=== PATIENT | female | born 1980 | race Caucasian/White ===

== ENCOUNTER 2016-12-12 14:55 | Emergency (ER) | payer OTHER ==
[2016-12-12] MEDS ORDERED: HYDROcodone/APAP 5-325MG 1 EACH TAB PO STA (16:09)
[2016-12-12] MEDS ORDERED: ORPHENADRINE 30 MG/ML 2 ML VIAL IM STA (16:09)
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
[2016-12-12 17:17] VITALS: BP 129/67; PULSE 80; RESP 16; TEMP 98.4
== END 2016-12-12 17:20 | disposition home or self-care (01) ==
LOC: EC 14:55
DX: S16.1XXA Strain of muscle, fascia and tendon at neck level, initial encounter (principal); M25.511 Pain in right shoulder; R51 Headache; F17.200 Nicotine dependence, unspecified, uncomplicated; V48.5XXA Car driver injured in noncollision transport accident in traffic accident, initial encounter; Y92.410 Unspecified street and highway as the place of occurrence of the external cause
CPT/HCPCS: 72050; 99284; 96372; J2360

== ENCOUNTER 2017-01-12 14:12 | Emergency (ER) | payer OTHER ==
[2017-01-12 14:27] VITALS: RESP 20
[2017-01-12] MEDS ORDERED: IPRATROPIUM-ALBUTEROL 3 ML NEB INHALATION STA (14:54)
--- NOTE | 2017-01-12 14:57 | ED ---
URI HPI - General Chief Complaint: Upper Respiratory Infection Stated Complaint: congestion MARK Time Seen by Provider: 01/12/17 14:52 Source: patient, RN notes reviewed Mode of arrival: ambulatory Limitations: no limitations - History of Present Illness Initial Comments: 36-year-old female presents emergency department tingling cough and congestion. Patient states she's been sick for last 5 days been on antibiotics 4 days. Patient states she saw Dr. Ledezma placed some oxacillin and prednisone. Patient states she was diagnosed with a blister infection. She states that symptoms seemed to be getting worse that she's had increased cough and sinus congestion. He states her cough is dry worse at nighttime. Patient states she had asthma when she was jumping over no current use of inhalers or nebulizers. Patient denies any pleuritic chest pain, palpitations. Patient denies fever, chills, night sweats. Patient is not taking any [id number] cough and cold medications. - Related Data Home Medications Medication Instructions Recorded Confirmed Amoxicillin 500 mg PO TID 01/12/17 01/12/17 methylPREDNISolone Dose Pack See Taper PO DAILY 01/12/17 01/12/17 [Medrol Dose Pack] Previous Rx's Medication Instructions Recorded Albuterol Sulfate [Proair Hfa] 1 - 2 puff INHALATION Q4HR PRN #1 01/12/17 inhaler Allergies Allergy/AdvReac Type Severity Reaction Status Date / Time No Known Allergies Allergy Verified 01/12/17 15:21 Review of Systems ROS Statement: Those systems with pertinent positive or pertinent negative responses have been documented in the HPI. ROS Other: All systems not noted in ROS Statement are negative. Past Medical History Past Medical History: Asthma Additional Past Medical History / Comment(s): MIGRAINES, kidney stones, ovarian cysts History of Any Multi-Drug Resistant Organisms: None Reported Past Surgical History: Section, Tubal Ligation Additional Past Surgical History / Comment(s): EAR TUMOR Past Psychological History: Anxiety, Depression Smoking Status: Current every day smoker Past Alcohol Use History: Occasional Past Drug Use History: None Reported General Exam Limitations: no limitations General appearance: alert, in no apparent distress Head exam: Present: atraumatic, normocephalic, normal inspection Eye exam: Present: normal appearance, PERRL, EOMI. Absent: scleral icterus, conjunctival injection, periorbital swelling ENT exam: Present: mucous membranes moist, TM's normal bilaterally, normal external ear exam, other (Sinus tenderness maxillary). Absent: normal oropharynx (Postnasal drainage) Neck exam: Present: normal inspection, full ROM. Absent: tenderness, meningismus, lymphadenopathy Respiratory exam: Present: wheezes. Absent: normal lung sounds bilaterally, respiratory distress, rales, rhonchi, stridor Cardiovascular Exam: Present: regular rate, normal rhythm, normal heart sounds. Absent: systolic murmur, diastolic murmur, rubs, gallop, clicks Skin exam: Present: warm, dry, intact, normal color. Absent: rash Course Vital Signs 01/12/17 01/12/17 01/12/17 14:24 15:15 15:20 Temperature 98.4 F Pulse Rate 102 H 100 100 Respiratory 20 Rate Blood Pressure 117/70 O2 Sat by Pulse 95 Oximetry Medical Decision Making - Medical Decision Making 36-year-old female presented emergency department for cough congestion. Patient appears to have a viral upper restrained infection. Patient does have some wheezing though she has a history of asthma. Patient was given a shot of steroids, inhaler to go home with. Return parameters were discussed. Disposition Clinical Impression: Upper respiratory infection, Bronchospasm Disposition: HOME SELF-CARE Condition: Stable Instructions: Upper Respiratory Infection (ED) Additional Instructions: Please return to the Emergency Department if symptoms worsen or any other concerns. Prescriptions: Albuterol Sulfate [Proair Hfa] 1 - 2 puff INHALATION Q4HR PRN #1 inhaler PRN Reason: difficulty in breathing Time of Disposition: 15:39
--- NOTE | 2017-01-12 15:11 | XR ---
EXAMINATION TYPE: XR chest 2V DATE OF EXAM: 01/12/2017 3:02 PM COMPARISON: 01/04/2010 HISTORY: Cough TECHNIQUE: Frontal and lateral views of the chest are obtained. FINDINGS: Heart and mediastinum are normal. Lungs are clear. Diaphragm is normal. Bony thorax is int act. IMPRESSION: Normal chest. No change.
[2017-01-12] MEDS ORDERED: methylPREDNISolone SOD SUCCI 125 MG/2 ML VIAL IM ONE (15:40)
[2017-01-12 15:56] VITALS: BP 120/70; PULSE 91; TEMP 98
== END 2017-01-12 15:56 | disposition home or self-care (01) ==
LOC: EC 14:12
DX: J98.01 Acute bronchospasm (principal); J06.9 Acute upper respiratory infection, unspecified; F17.200 Nicotine dependence, unspecified, uncomplicated; Z79.52 Long term (current) use of systemic steroids
CPT/HCPCS: 99283; 96372; 94640; 71020; J2930

== ENCOUNTER 2017-04-22 06:41 | Observation (INO) | payer OTHER ==
[2017-04-22 07:07] LABS: Basophils # (A) 0.1 k/uL (0-0.2); Basophils % (A) 0 %; CH 31.3; CHCM 33.9; Eosinophils # (A) 0.2 k/uL (0-0.7); Eosinophils % (A) 1 %; HCT 42.9 % (34.0-46.0); HDW 2.34; HGB 14.6 gm/dL (11.4-16.0); Luc # (Auto) 0.11; Luc % (Auto) 1; Lymphocytes # (A) 1.4 k/uL (1.0-4.8); Lymphocytes % (A) 7 %; MCH 31.6 pg (25.0-35.0); MCHC 34.1 g/dL (31.0-37.0); MCV 92.7 fL (80.0-100.0); Mean Platelet Volume 7.6; Monocytes # (A) 0.8 k/uL (0-1.0); Monocytes % (A) 4 %; Neutrophils # (A) 16.5 k/uL (1.3-7.7); Neutrophils % (A) 87 %; RBC 4.63 m/uL (3.80-5.40); RDW 13.9 % (11.5-15.5); WBC (Perox) 17.55
[2017-04-22] MEDS ORDERED: KETOROLAC 30 MG/ML 1 ML VIAL IVP STA ×2 (07:11→08:30)
--- NOTE | 2017-04-22 07:14 | ED ---
Abdominal Pain HPI - General Chief Complaint: Abdominal Pain Stated Complaint: Abd pain Time Seen by Provider: 04/22/17 07:00 Source: patient, EMS, RN notes reviewed Mode of arrival: EMS Limitations: no limitations - History of Present Illness Initial Comments: This is a 36-year-old female who presents with the onset of lower abdominal pain about 2-3 hours prior to admission. She states is very severe and sharp 9/ 10 in severity. Some nausea no vomiting no dysuria no hematuria she has had a history of ovarian cysts it does not feel like that she states is worse than labor pains. She has had a . No history of kidney stones. She has any fevers chills or sweats. No diarrhea no constipation. MD Complaint: abdominal pain - Related Data Home Medications Medication Instructions Recorded Confirmed Albuterol Inhaler [Ventolin Hfa 1 - 2 puff INHALATION RT-Q6H PRN 04/22/17 Inhaler] Hydrocodone/Acetaminophen [[place] 1 tab PO DAILY PRN 04/22/17 04/22/17 5-325] Ibuprofen [Motrin] 400 mg PO DAILY PRN 04/22/17 04/22/17 Allergies Allergy/AdvReac Type Severity Reaction Status Date / Time No Known Allergies Allergy Verified 04/22/17 08:28 Review of Systems ROS Statement: Those systems with pertinent positive or pertinent negative responses have been documented in the HPI. ROS Other: All systems not noted in ROS Statement are negative. Past Medical History Past Medical History: Asthma Additional Past Medical History / Comment(s): MIGRAINES, kidney stones, ovarian cysts History of Any Multi-Drug Resistant Organisms: None Reported Past Surgical History: Section, Tubal Ligation Additional Past Surgical History / Comment(s): EAR TUMOR Smoking Status: Current every day smoker Past Alcohol Use History: Occasional Past Drug Use History: None Reported General Exam - General Exam Comments Initial Comments: This is a well-developed well-nourished awake alert oriented 3 female Limitations: no limitations General appearance: alert, anxious, in distress Head exam: Present: atraumatic, normocephalic, normal inspection Eye exam: Present: normal appearance, PERRL, EOMI. Absent: scleral icterus, conjunctival injection, periorbital swelling ENT exam: Present: normal exam, mucous membranes moist Neck exam: Present: normal inspection. Absent: tenderness, meningismus, lymphadenopathy Respiratory exam: Present: normal lung sounds bilaterally. Absent: respiratory distress, wheezes, rales, rhonchi, stridor Cardiovascular Exam: Present: regular rate, normal rhythm, normal heart sounds. Absent: systolic murmur, diastolic murmur, rubs, gallop, clicks GI/Abdominal exam: Present: soft, tenderness (Tenderness over the suprapubic region with no guarding rebound masses or bruits no definite McBurney point tenderness.), normal bowel sounds. Absent: distended, guarding, rebound, rigid Extremities exam: Present: normal inspection, full ROM, normal capillary refill. Absent: tenderness, pedal edema, joint swelling, calf tenderness Back exam: Present: normal inspection Neurological exam: Present: alert, oriented X3, CN II-XII intact Psychiatric exam: Present: normal affect, normal mood Skin exam: Present: warm, dry, intact, normal color. Absent: rash Course Vital Signs 04/22/17 04/22/17 06:43 08:50 Temperature 98.6 F Pulse Rate 79 72 Respiratory 20 16 Rate Blood Pressure 127/91 112/72 O2 Sat by Pulse 97 96 Oximetry - Reevaluation(s) Reevaluation #1: 04/22/17 09:31 I did discuss case with Dr. Barger. Medical Decision Making - Medical Decision Making I did discuss findings with the patient she does demonstrate evidence of early appendicitis. On-call surgery will be consulted patient will be admitted for treatment. - Lab Data Result diagrams: 04/22/17 06:53 04/22/17 06:53 Lab Results 04/22/17 04/22/17 04/22/17 Range/Units 06:53 06:53 07:51 WBC 19.0 H (3.8-10.6) k/uL RBC 4.63 (3.80-5.40) m/uL Hgb 14.6 (11.4-16.0) gm/dL Hct 42.9 (34.0-46.0) % MCV 92.7 (80.0-100.0) fL MCH 31.6 (25.0-35.0) pg MCHC 34.1 (31.0-37.0) g/dL RDW 13.9 (11.5-15.5) % Plt Count 243 (150-450) k/uL Neutrophils % 87 % Lymphocytes % 7 % Monocytes % 4 % Eosinophils % 1 % Basophils % 0 % Neutrophils # 16.5 H (1.3-7.7) k/uL Lymphocytes # 1.4 (1.0-4.8) k/uL Monocytes # 0.8 (0-1.0) k/uL Eosinophils # 0.2 (0-0.7) k/uL Basophils # 0.1 (0-0.2) k/uL Sodium 144 (137-145) mmol/L Potassium 4.0 (3.5-5.1) mmol/L Chloride 114 H (98-107) mmol/L Carbon Dioxide 18 L (22-30) mmol/L Anion Gap 12 mmol/L BUN 8 (7-17) mg/dL Creatinine 0.55 (0.52-1.04) mg/dL Est GFR (MDRD) Af Amer >60 (>60 ml/min/1.73 sqM) Est GFR (MDRD) Non-Af >60 (>60 ml/min/1.73 sqM) Glucose 91 (74-99) mg/dL Calcium 8.3 L (8.4-10.2) mg/dL Total Bilirubin 0.3 (0.2-1.3) mg/dL AST 25 (14-36) U/L ALT 33 (9-52) U/L Alkaline Phosphatase 82 (38-126) U/L Total Protein 6.6 (6.3-8.2) g/dL Albumin 3.8 (3.5-5.0) g/dL Amylase <30 L (30-110) U/L Lipase 65 (23-300) U/L Urine Color Yellow Urine Appearance Clear (Clear) Urine pH 5.0 (5.0-8.0) Ur Specific [place] 1.010 (1.001-1.035) Urine Protein Negative (Negative) Urine Glucose (UA) Negative (Negative) Urine Ketones Negative (Negative) Urine Blood Trace H (Negative) Urine Nitrite Negative (Negative) Urine Bilirubin Negative (Negative) Urine Urobilinogen <2.0 (<2.0) mg/dL Ur Leukocyte Esterase Moderate H (Negative) Urine RBC 5 (0-5) /hpf Urine WBC 3 (0-5) /hpf Ur Squamous Epith Cells 2 (0-4) /hpf Urine Mucus Rare H (None) /hpf Urine HCG, Qual (Not Detectd) 04/22/17 Range/Units 07:51 WBC (3.8-10.6) k/uL RBC (3.80-5.40) m/uL Hgb (11.4-16.0) gm/dL Hct (34.0-46.0) % MCV (80.0-100.0) fL MCH (25.0-35.0) pg MCHC (31.0-37.0) g/dL RDW (11.5-15.5) % Plt Count (150-450) k/uL Neutrophils % % Lymphocytes % % Monocytes % % Eosinophils % % Basophils % % Neutrophils # (1.3-7.7) k/uL Lymphocytes # (1.0-4.8) k/uL Monocytes # (0-1.0) k/uL Eosinophils # (0-0.7) k/uL Basophils # (0-0.2) k/uL Sodium (137-145) mmol/L Potassium (3.5-5.1) mmol/L Chloride (98-107) mmol/L Carbon Dioxide (22-30) mmol/L Anion Gap mmol/L BUN (7-17) mg/dL Creatinine (0.52-1.04) mg/dL Est GFR (MDRD) Af Amer (>60 ml/min/1.73 sqM) Est GFR (MDRD) Non-Af (>60 ml/min/1.73 sqM) Glucose (74-99) mg/dL Calcium (8.4-10.2) mg/dL Total Bilirubin (0.2-1.3) mg/dL AST (14-36) U/L ALT (9-52) U/L Alkaline Phosphatase (38-126) U/L Total Protein (6.3-8.2) g/dL Albumin (3.5-5.0) g/dL Amylase (30-110) U/L Lipase (23-300) U/L Urine Color Urine Appearance (Clear) Urine pH (5.0-8.0) Ur Specific [place] (1.001-1.035) Urine Protein (Negative) Urine Glucose (UA) (Negative) Urine Ketones (Negative) Urine Blood (Negative) Urine Nitrite (Negative) Urine Bilirubin (Negative) Urine Urobilinogen (<2.0) mg/dL Ur Leukocyte Esterase (Negative) Urine RBC (0-5) /hpf Urine WBC (0-5) /hpf Ur Squamous Epith Cells (0-4) /hpf Urine Mucus (None) /hpf Urine HCG, Qual Not Detected (Not Detectd) - EKG Data -: EKG Interpreted by Me EKG shows normal: sinus rhythm, axis, intervals, QRS complexes, ST-T waves (EKG was performed shows normal sinus rhythm at 74 IL interval 136 QRS 74 QT since QTC of 394/437 st-t wave changes.) Rate: normal - Radiology Data Radiology results: report reviewed (I did review the imaging and reports x-rays nonspecific CAT scan that she'll evidence of early appendicitis.), image reviewed Disposition Clinical Impression: Acute appendicitis, Acute abdomen Disposition: ADMITTED IP TO THIS HOSP Condition: Stable Referrals: None,Stated [Primary Care Provider] - 1-2 days
[2017-04-22 07:21] LABS: ALT 33 U/L (9-52); AST 25 U/L (14-36); Alkaline Phosphatase 82 U/L (38-126); Amylase <30 U/L (30-110); Anion Gap 12 mmol/L; Blood Urea Nitrogen 8 mg/dL (7-17); Calcium 8.3 mg/dL (8.4-10.2); Carbon Dioxide 18 mmol/L (22-30); Chloride 114 mmol/L (98-107); Glucose 91 mg/dL (74-99); Non-African American GFR(MDRD) >60 (>60 ml/min/1.73 sqM); Sodium 144 mmol/L (137-145); Total Bilirubin 0.3 mg/dL (0.2-1.3); Total Protein 6.6 g/dL (6.3-8.2)
[2017-04-22 08:05] LABS: Appearance,Urine Clear (Clear); Bilirubin,Urine Negative (Negative); Glucose,Urine (UA) Negative (Negative); Ketones,Urine Negative (Negative); Leukocyte Esterase,Urine Moderate (Negative); Mucus,Urine Rare /hpf; Nitrite,Urine Negative (Negative); Particle Count 5914; Protein,Urine Negative (Negative); RBC,Urine 5 /hpf (0-5); Squamous Epithelial Cell,Urine 2 /hpf (0-4); UA Billing (MACRO vs. MICRO) MICRO; Urobilinogen,Urine <2.0 mg/dL (<2.0); WBC,Urine 3 /hpf (0-5)
--- NOTE | 2017-04-22 08:05 | XR ---
EXAMINATION TYPE: XR KUB DATE OF EXAM: 04/22/2017 CLINICAL DATA: 36 year-old female with abdominal pain, [facility] COMPARISON: 12/12/2015 FINDINGS: Lung bases are clear. No evidence for free intraperitoneal air. No dilated small bowel. A couple nonspecific air-fluid levels seen in the right mid abdomen. Scattere d colonic air is present without significant stool burden. Bilateral tubal ligation clips. No suspicious calcifications identified. IMPRESSION: 1. No evidence of bowel obstruction or free intraperitoneal air. 2. A couple tiny air-fluid levels in the right mid abdomen are nonspecific.
--- NOTE | 2017-04-22 09:16 | CT ---
EXAMINATION TYPE: CT abdomen pelvis wo con DATE OF EXAM: 04/22/2017 COMPARISON: NONE HISTORY: Abdominal pain CT DLP: 710.5 mGycm Examination of the solid and hollow viscera is limited given the lack of contrast. FINDINGS: LUNG BASES: No evidence for nodule. No evidence for infiltrate. LIVER/GB: The gallbladder is unremarkable. No space-occupying hepatic lesion. PANCREAS: No pancreatic mass identified. No inflammatory process seen. SPLEEN: No evidence for splenomegaly. No intrasplenic lesions seen. ADRENALS: No adrenal nodules identified. No evidence for thickening. KIDNEYS: No evidence for renal mass. No nephrolithiasis. No hydronephrosis. BOWEL: Mild dilatation of the appendix measuring 8.4 mm with minimal wall thickening and periappendic eal stranding. The findings may reflect early mild acute appendicitis. Correlate clinically. No evide nce of bowel obstruction. No inflammatory process. Lymph nodes: No evidence for adenopathy greater than 1 cm. Abdominal aorta: Atheromatous changes seen. No evidence for aneurysm. Genital organs: No significant abnormality. Tubal ligation clips Other: No significant abnormality. IMPRESSION: 1. Correlate for early mild acute appendicitis.
[2017-04-22] MEDS ORDERED: NALOXONE 0.4 MG/ML 1 ML VIAL IV PRN (09:33)
[2017-04-22] MEDS ORDERED: ONDANSETRON 4 MG/2 ML VIAL IVP PRN (09:33)
[2017-04-22] MEDS ORDERED: PIPERACILLIN-TAZOBACTAM 3.375 GM in DEXTROSE/WATER 1 50ML.BAG IVPB STA (09:34)
[2017-04-22] MEDS: SODIUM CHLORIDE 0.9% 1,000 ML IV SCH ×2 (09:44→17:18)
[2017-04-22] MEDS: HYDROmorphone 1 MG/ML 1 ML SYRINGE IV PRN ×4 (09:45→23:01)
[2017-04-22] MEDS ORDERED: IV FLUID CONTINUATION 900 ML IV ONE (12:16)
[2017-04-22] MEDS ORDERED: ONDANSETRON 4 MG/2 ML VIAL IVP ONE (12:17)
[2017-04-22] MEDS ORDERED: DEXAMETHASONE SOD PHOS (MDV) 100 MG/10 ML VIAL IV ONE (12:17)
[2017-04-22] MEDS ORDERED: SCOPOLAMINE 1.5MG/72HR PATCH TRANSDERM ONE (12:18)
[2017-04-22] MEDS ORDERED: fentaNYL (PF) 50 MCG/ML 2 ML AMP IV ONE ×2 (12:18→12:28)
[2017-04-22] MEDS ORDERED: HEPARIN SODIUM,PORCINE 5,000 UNIT/ML 1 ML VIAL SQ ONE (12:55)
--- NOTE | 2017-04-22 12:55 | P.GSHP ---
History of Present Illness H&P Date: 04/22/17 Chief Complaint: Right lower quadrant pain This is a 36-year-old female who was admitted to the hospital for right lower quadrant pain. Patient's workup found have acute appendicitis. She is evidence of leukocytosis well. She's had pain for 24 hours. Past Medical History Past Medical History: Asthma Additional Past Medical History / Comment(s): MIGRAINES, kidney stones, ovarian cysts History of Any Multi-Drug Resistant Organisms: None Reported Past Surgical History: Section, Tubal Ligation Additional Past Surgical History / Comment(s): EAR TUMOR Smoking Status: Current every day smoker Past Alcohol Use History: Occasional Past Drug Use History: None Reported Medications and Allergies Home Medications Medication Instructions Recorded Confirmed Type Albuterol Inhaler [Ventolin Hfa 1 - 2 puff INHALATION RT-Q6H PRN 04/22/17 History Inhaler] Hydrocodone/Acetaminophen [[place] 1 tab PO DAILY PRN 04/22/17 04/22/17 History 5-325] Ibuprofen [Motrin] 400 mg PO DAILY PRN 04/22/17 04/22/17 History Allergies Allergy/AdvReac Type Severity Reaction Status Date / Time No Known Allergies Allergy Verified 04/22/17 08:28 Surgical - Exam Vital Signs Temp Pulse Resp BP Pulse Ox 98.6 F 79 20 127/91 97 04/22/17 06:43 04/22/17 06:43 04/22/17 06:43 04/22/17 06:43 04/22/17 06:43 - General well developed, no distress - Eyes PERRL - ENT normal pinna - Neck no masses - Respiratory normal expansion - Cardiovascular Rhythm: regular - Abdomen Right lower quadrant pain with tenderness at McBurney's point Abdomen: soft Results - Labs 04/22/17 06:53 04/22/17 06:53 Abnormal Lab Results - Last 24 Hours (Table) 04/22/17 04/22/17 04/22/17 Range/Units 06:53 06:53 07:51 WBC 19.0 H (3.8-10.6) k/uL Neutrophils # 16.5 H (1.3-7.7) k/uL Chloride 114 H (98-107) mmol/L Carbon Dioxide 18 L (22-30) mmol/L Calcium 8.3 L (8.4-10.2) mg/dL Amylase <30 L (30-110) U/L Urine Blood Trace H (Negative) Ur Leukocyte Esterase Moderate H (Negative) Urine Mucus Rare H (None) /hpf Diabetes panel 04/22/17 Range/Units 06:53 Sodium 144 (137-145) mmol/L Potassium 4.0 (3.5-5.1) mmol/L Chloride 114 H (98-107) mmol/L Carbon Dioxide 18 L (22-30) mmol/L BUN 8 (7-17) mg/dL Creatinine 0.55 (0.52-1.04) mg/dL Glucose 91 (74-99) mg/dL Calcium 8.3 L (8.4-10.2) mg/dL AST 25 (14-36) U/L ALT 33 (9-52) U/L Alkaline Phosphatase 82 (38-126) U/L Total Protein 6.6 (6.3-8.2) g/dL Albumin 3.8 (3.5-5.0) g/dL Calcium panel 04/22/17 Range/Units 06:53 Calcium 8.3 L (8.4-10.2) mg/dL Albumin 3.8 (3.5-5.0) g/dL Pituitary panel 04/22/17 Range/Units 06:53 Sodium 144 (137-145) mmol/L Potassium 4.0 (3.5-5.1) mmol/L Chloride 114 H (98-107) mmol/L Carbon Dioxide 18 L (22-30) mmol/L BUN 8 (7-17) mg/dL Creatinine 0.55 (0.52-1.04) mg/dL Glucose 91 (74-99) mg/dL Calcium 8.3 L (8.4-10.2) mg/dL Adrenal panel 04/22/17 Range/Units 06:53 Sodium 144 (137-145) mmol/L Potassium 4.0 (3.5-5.1) mmol/L Chloride 114 H (98-107) mmol/L Carbon Dioxide 18 L (22-30) mmol/L BUN 8 (7-17) mg/dL Creatinine 0.55 (0.52-1.04) mg/dL Glucose 91 (74-99) mg/dL Calcium 8.3 L (8.4-10.2) mg/dL Total Bilirubin 0.3 (0.2-1.3) mg/dL AST 25 (14-36) U/L ALT 33 (9-52) U/L Alkaline Phosphatase 82 (38-126) U/L Total Protein 6.6 (6.3-8.2) g/dL Albumin 3.8 (3.5-5.0) g/dL Assessment and Plan Plan: Right lower quadrant pain Appendicitis We'll perform laparoscopic appendectomy
[2017-04-22] MEDS ORDERED: BUPIVACAIN-EPI 0.25%-1:200,000 30 ML VIAL SQ ONE (13:15)
[2017-04-22] MEDS ORDERED: ROCURONIUM BROMIDE 10 MG/ML 10 ML VIAL IV ONE (13:24)
[2017-04-22] MEDS ORDERED: GLYCOPYRROLATE 0.2 MG/ML 2 ML VIAL ONE (13:24)
[2017-04-22] MEDS ORDERED: NEOSTIGMINE 1 MG/ML 10 ML VIAL ONE (13:24)
[2017-04-22] MEDS ORDERED: MIDAZOLAM 2 MG/2 ML VIAL ONE (13:24)
[2017-04-22] MEDS ORDERED: HYDROmorphone (PF) 1 MG/ML ONE (13:24)
[2017-04-22] MEDS ORDERED: LIDOCAINE 1% INJ 10MG/ML (20 ML MDV) ONE (13:24)
[2017-04-22] MEDS ORDERED: fentaNYL (PF) 50 MCG/ML 2 ML AMP ONE (13:24)
[2017-04-22] MEDS ORDERED: SUCCINYLCHOLINE CHLORIDE 100 MG/5 ML SYR IV ONE (13:24)
[2017-04-22] MEDS ORDERED: PROPOFOL 10 MG/ML 20 ML VIAL IV ONE (13:24)
[2017-04-22] MEDS ORDERED: LACTATED RINGERS 1,000 ML IV ONE (14:03)
[2017-04-22] MEDS ORDERED: traMADol 50 MG TAB PO PRN (14:03)
[2017-04-22] MEDS: HYDROmorphone 1 MG/ML 1 ML SYRINGE IVP ONE ×2 (14:36→14:38)
[2017-04-22] MEDS ORDERED: diphenhydrAMINE 50 MG/ML 1 ML VIAL IVP ONE (14:48)
[2017-04-22] MEDS: KETOROLAC 30 MG/ML 1 ML VIAL IVP SCH ×2 (17:16→20:34)
[2017-04-22 18:48] VITALS: BMI 32.5
--- NOTE | 2017-04-22 19:18 | P.OP ---
Date of Procedure: 04/22/17 Preoperative Diagnosis: Appendicitis Postoperative Diagnosis: Appendicitis Procedure(s) Performed: Laparoscopic appendectomy Implants: Anesthesia: WOJCIECH Surgeon: Bradley Barger Estimated Blood Loss (ml): 5 Pathology: other (Appendix) Condition: stable Disposition: PACU Indications for Procedure: Operative Findings: Description of Procedure: The patient's placed on the operating table in the supine position. The patient received general anesthesia. The abdomen was prepped and draped in the usual sterile fashion. The skin was anesthetized 1% local Xylocaine at the trocar sites. Using an 11 blade the skin was incised at the umbilicus. The umbilicus was grasped with a [place] clamp and then a Veress needle was placed into the peritoneal cavity. Position of the Veress needle was confirmed with positive drop test. After adequate insufflation a 5 mm trocar was placed into the peritoneal cavity. The abdomen was further insufflated. And then the laparoscope was placed in the peritoneal cavity. Next a 5 mm trocar was placed in the midline suprapubic position. And then a 10 mm trocar was placed in the midline epigastric position. The patient was rotated with the right side up and in Trendelenburg. The appendix was visualized. The appendix appeared to be inflamed. The appendix was grasped and then using the Harmonic scissors the mesoappendix was divided. A PDS Endoloop was then placed around the base of the appendix. And then the appendix was divided using Harmonic scissors. The appendix was placed into an Endo Catch and brought out through the 10 mm trocar site. The abdomen was irrigated. There is no bleeding seen. The trochars withdrawn. The skin was closed interrupted 3-0 Monocryl suture. Dermabond dressing was applied. Patient was sent to recovery room in stable condition.
[2017-04-23] MEDS: SODIUM CHLORIDE 0.9% 1,000 ML IV SCH ×2 (01:01→09:42)
[2017-04-23] MEDS: KETOROLAC 30 MG/ML 1 ML VIAL IVP SCH ×4 (02:11→22:03)
[2017-04-23] MEDS: HYDROmorphone 1 MG/ML 1 ML SYRINGE IV PRN ×4 (04:03→16:52)
[2017-04-23] MEDS: HYDROcodone/APAP 5-325MG 1 EACH TAB PO PRN ×3 (05:21→20:07)
--- NOTE | 2017-04-23 12:31 | CONS ---
SUBJECTIVE: 36 -year-old white female with right lower quadrant pain. HISTORY OF PRESENT ILLNESS: This 36 -year-old white female with right lower quadrant abdominal pain, found to have acute appendicitis status post acute appendectomy, leukocytosis, pain for 24 hours, she is complaining of incision pain 8 out of 10. Pain medicines have been ordered. She has history of migraines, kidney stones, and asthma. Surgical history: and tubal ligation. Current everyday smoker. Occasioal alcohol. No illicit drugs. Home medications: 1. Ventolin prn. 2. [place] 5/325 prn. ALLERGIES: Negative. Temp 98.6, pulse 79. Respiratory rate 18-20. Blood pressure 147/91. O2 97% on room air. General: Well developed in no acute distress. Ophthalomological: Pupils equal, round and reactive to light and accommodation. ENT external appearance of ear canals within normal limits. Respiratory clear. Cardiovascular: regular rate and rhythm. Abdomen soft and nontender. Incision right lower quadrant on abdominal exam. White count 19.0. Hemoglobin 14.6. Other labs reviewed. Calcium level 8.3. ASSESSMENT AND PLAN: 1. Right lower quadrant abdominal pain, status post appendicitis. 2. Obesity. Continue current treatments, pain medications, nausea medicine. Follow up on the next 24 to 48 hours. [facility]
[2017-04-23 15:43] LABS: Basophils % (A) 1 %; CH 30.9; CHCM 33.2; Eosinophils # (A) 0.1 k/uL (0-0.7); Eosinophils % (A) 1 %; HCT 36.4 % (34.0-46.0); HDW 2.34; HGB 11.9 gm/dL (11.4-16.0); Luc # (Auto) 0.13; Luc % (Auto) 2; Lymphocytes # (A) 2.6 k/uL (1.0-4.8); Lymphocytes % (A) 30 %; MCH 30.4 pg (25.0-35.0); MCHC 32.7 g/dL (31.0-37.0); MCV 93.2 fL (80.0-100.0); Mean Platelet Volume 7.9; Monocytes # (A) 0.5 k/uL (0-1.0); Monocytes % (A) 6 %; Neutrophils # (A) 5.3 k/uL (1.3-7.7); Neutrophils % (A) 61 %; RDW 13.8 % (11.5-15.5); WBC 8.7 k/uL (3.8-10.6); WBC (Perox) 8.65
--- NOTE | 2017-04-23 21:09 | P.PN ---
Progress Note - Text The patient's postoperative day 1 from laparoscopic appendectomy for acute appendicitis yesterday. She still has with the pain nausea. She's had poor oral intake. On exam her vital signs are stable. Her abdomen soft. Status post lap her scalp appendectomy. Patient will hopefully discharge home in the a.m.
[2017-04-24] MEDS: HYDROmorphone 1 MG/ML 1 ML SYRINGE IV PRN ×2 (00:21→08:32)
[2017-04-24] MEDS: HYDROcodone/APAP 5-325MG 1 EACH TAB PO PRN ×2 (03:19→10:36)
[2017-04-24 03:54] VITALS: TEMP 97.9
[2017-04-24] MEDS: KETOROLAC 30 MG/ML 1 ML VIAL IVP SCH ×2 (04:11→11:20)
[2017-04-24 08:50] VITALS: BP 96/68; RESP 18
--- NOTE | 2017-04-24 09:52 | PN ---
SUBJECTIVE: A 36-year-old white female status post acute appendectomy for acute appendicitis. Having no chest pain or shortness of breath. ( ). No nausea, vomiting. CARDIOVASCULAR: S1, S2. LUNGS: Clear. GI: Tenderness right lower quadrant, no guarding. ASSESSMENT: 1. Status post appendectomy with acute abdominal pain. Continue with pain management. 2. No nausea or vomiting. Possible discharge in the next 24 to 48 hours. MTDD
[2017-04-24] MEDS ORDERED: KETOROLAC 30 MG/ML 1 ML VIAL IVP ONE (11:00)
[2017-04-24 11:23] VITALS: PULSE 58
[2017-04-24] MEDS: SODIUM CHLORIDE 0.9% 1,000 ML IV SCH (11:25)
== END 2017-04-24 13:28 | disposition home or self-care (01) ==
LOC: EC 06:41 → 6PED 09:33
PROVIDERS: ADMIT Surgery; ATTEND Surgery
DX: K35.80 Unspecified acute appendicitis (principal); F17.200 Nicotine dependence, unspecified, uncomplicated; E66.9 Obesity, unspecified; Z68.32 Body mass index [BMI] 32.0-32.9, adult; J45.909 Unspecified asthma, uncomplicated
CPT/HCPCS: 44970; 96374; 96375; 96376 ×3; 99285; 36415; 93005; 81025 ×2; 88304; 80053; 82150; 83690; 85025 ×2; 81001; 74000; 74176; G0378 ×3; J2250; J1200; J1644; J2710; J2405; J2001; J3010; J1885 ×3; J1170 ×3; J2543; J1100; J0330; J2704

== ENCOUNTER 2017-08-16 23:08 | Emergency (ER) | payer OTHER ==
[2017-08-16] MEDS ORDERED: KETOROLAC 60 MG/2 ML VIAL IM STA (23:21)
[2017-08-16] MEDS ORDERED: ORPHENADRINE 30 MG/ML 2 ML VIAL IM STA (23:21)
[2017-08-16] MEDS ORDERED: methylPREDNISolone SOD SUCCI 125 MG/2 ML VIAL IM STA (23:21)
[2017-08-16 23:23] VITALS: RESP 18
[2017-08-16] MEDS ORDERED: KETOROLAC 30 MG/ML 1 ML VIAL IM STA (23:35)
--- NOTE | 2017-08-16 23:37 | ED ---
General Adult HPI - General Stated complaint: back problems Time Seen by Provider: 08/16/17 23:15 Source: patient, RN notes reviewed Mode of arrival: wheelchair Limitations: no limitations - History of Present Illness Initial comments: 36-year-old female presents to the emergency department with a chief complaint of back pain. Patient has chronic back pain she states she feels this whole back is spasming up. She gets shooting numbness tingling and pain down her legs. She has a loss by bladder function or any saddle anesthesia. Patient states with the chiropractor and she still just feels as if her back spasm. Patient states she did fall once because her back surgeon spasm and she fell to the ground. Patient was concerned due to her continued pain so she thought that she should be seen. She did try Delphi that she had left over at home however this did not seem to help.Patient denies any recent fever, chills, shortness of breath, chest pain, back pain, abdominal pain, nausea vomiting, numbness or tingling, dysuria or hematuria, constipation or diarrhea, headaches or visual changes, or any other current symptoms. - Related Data Home Medications Medication Instructions Recorded Confirmed Albuterol Inhaler [Ventolin Hfa 1 - 2 puff INHALATION RT-Q6H PRN 04/22/17 Inhaler] Hydrocodone/Acetaminophen [[place] 1 tab PO DAILY PRN 04/22/17 04/22/17 5-325] Ibuprofen [Motrin] 400 mg PO DAILY PRN 04/22/17 04/22/17 Previous Rx's Medication Instructions Recorded Docusate [Colace] 100 mg PO BID #20 capsule 04/24/17 HYDROcodone/APAP 7.5-325MG [[employer] 1 each PO Q4H PRN #60 tab 04/24/17 7.5] Ibuprofen [Motrin] 600 mg PO Q6HR PRN #20 tab 08/17/17 Orphenadrine [Norflex] 100 mg PO Q12H #10 tablet.er 08/17/17 predniSONE 50 mg PO DAILY #5 tab 08/17/17 Allergies Allergy/AdvReac Type Severity Reaction Status Date / Time No Known Allergies Allergy Verified 04/22/17 08:28 Review of Systems ROS Statement: Those systems with pertinent positive or pertinent negative responses have been documented in the HPI. ROS Other: All systems not noted in ROS Statement are negative. Past Medical History Past Medical History: Asthma Additional Past Medical History / Comment(s): MIGRAINES, kidney stones, ovarian cysts History of Any Multi-Drug Resistant Organisms: None Reported Past Surgical History: Appendectomy, Section, Tubal Ligation Additional Past Surgical History / Comment(s): EAR TUMOR Past Psychological History: Anxiety, Depression Smoking Status: Current every day smoker Past Alcohol Use History: Occasional Past Drug Use History: None Reported - Past Family History Mother Family Medical History: Cancer Additional Family Medical History / Comment(s): breast General Exam - General Exam Comments Initial Comments: General: The patient is awake and alert, in no distress, and does not appear acutely ill. Eye: Pupils are equal, round and reactive to light, extra-ocular movements are intact; there is normal conjunctiva bilaterally. No signs of icterus. Ears, nose, mouth and throat: There are moist mucous membranes. Neck: The neck is supple, there is no tenderness. Cardiovascular: There is a regular rate and rhythm. No murmur, rub or gallop is appreciated. Respiratory: Lungs are clear to auscultation, respirations are non-labored, breath sounds are equal. No wheezes, stridor, rales, or rhonchi. Gastrointestinal: Soft, non-distended, non-tender abdomen without masses or organomegaly noted. There is no rebound or guarding present. No CVA tenderness. Bowel sounds are unremarkable. Back: There is tenderness to palpation in the midline lower lumbar spine.. There is no obvious deformity. No rashes noted. Positive straight leg raise on the right Musculoskeletal: Normal ROM, no tenderness, There is no pedal edema. There is no calf tenderness or swelling. Sensation intact. Pulses equal bilaterally 2+. Neurological: CN II-XII intact, There are no obvious motor or sensory deficits. Coordination appears grossly intact. Speech is normal. Skin: Skin is warm and dry and no rashes or lesions are noted. Psychiatric: Cooperative, appropriate mood & affect, normal judgment. Limitations: no limitations Course Vital Signs 08/16/17 23:15 Temperature 97.2 F L Pulse Rate 90 Respiratory 18 Rate Blood Pressure 143/89 O2 Sat by Pulse 94 L Oximetry Medical Decision Making - Medical Decision Making 36-year-old female presents to emergency Department chief complaint of back pain. Patient was reviewed. Patient is better with the injections. We will the patient medications for home. patient will be discharged home to follow-up questions. Return parameters were discussed. - Radiology Data Radiology results: report reviewed, image reviewed Disposition Clinical Impression: Lumbar strain Disposition: HOME SELF-CARE Condition: Stable Instructions: Acute Low Back Pain (ED), Lower Back Exercises (ED) Additional Instructions: Please use medication as discussed. Please follow up with family doctor if symptoms have not improved over the next two days. Please return to the emergency room if your symptoms increase or worsen or for any other concerns. Prescriptions: Ibuprofen [Motrin] 600 mg PO Q6HR PRN #20 tab PRN Reason: Pain Orphenadrine [Norflex] 100 mg PO Q12H #10 tablet.er predniSONE 50 mg PO DAILY #5 tab Referrals: Jovanni Olson MD [Primary Care Provider] - 1-2 days Time of Disposition: 00:17
--- NOTE | 2017-08-17 00:11 | XR ---
EXAMINATION TYPE: XR lumbar spine 2 or 3V DATE OF EXAM: 08/17/2017 COMPARISON: 03/01/2015 HISTORY: Pain TECHNIQUE: 3 views FINDINGS: Lumbar vertebra have normal alignment. Disc spaces are fairly normal. There is slight narro wing at L3-4 disc. Posterior elements are intact. There is no compression fracture. Sacroiliac joints appear normal. IMPRESSION: Negative lumbar spine exam. No change.
[2017-08-17] MEDS ORDERED: DIAZEPAM 5 MG TAB PO STA (00:22)
[2017-08-17 00:58] VITALS: BP 130/80; PULSE 87; TEMP 98.7
== END 2017-08-17 00:52 | disposition home or self-care (01) ==
LOC: EC 23:08
DX: S39.012A Strain of muscle, fascia and tendon of lower back, initial encounter (principal); R20.0 Anesthesia of skin; F17.200 Nicotine dependence, unspecified, uncomplicated
CPT/HCPCS: 72100; 99283; 96372 ×3; J2360; J2930; J1885

== ENCOUNTER 2017-11-10 21:13 | Observation (INO) | payer OTHER ==
--- NOTE | 2017-11-10 21:47 | ED ---
Headache HPI - General Chief Complaint: Headache Stated Complaint: right side facial & neck numbness Time Seen by Provider: 11/10/17 21:47 Source: patient Mode of arrival: ambulatory Limitations: no limitations - History of Present Illness Initial Comments: Patient presents with decreased sensation right cheek and right lateral neck. Patient states symptoms started yesterday, associated with mild pain back right side of her head and right lateral neck. Patient denies any trauma. Patient denies vision changes, facial droop, confusion, speech problems, changes in taste, tongue numbness, focal weakness, numbness in arms or legs, chest pain, shortness of breath, fevers, chills. Patient notes she had nasal congestion and rhinorrhea and cough last week, however that since resolved. Patient denies pain in the ear or changes in hearing. Patient is a current smoker. Denies high blood pressure, high cholesterol, diabetes, history of stroke, family history of early strokes. Patient states she began feeling the decreased sensation in her right cheek yesterday, however today it is progressively worsening, radiating to right lateral neck. Patient denies changes in sensation in the forehead. Denies weakness in the forehead. Patient notes she thought her face was becoming swollen. States "it feels numb like when you go to the dentist". - Related Data Home Medications Medication Instructions Recorded Confirmed Methocarbamol [Robaxin] 500 mg PO ONCE PRN 11/10/17 11/10/17 Previous Rx's Medication Instructions Recorded Ibuprofen [Motrin] 600 mg PO Q6HR PRN #20 tab 08/17/17 Allergies Allergy/AdvReac Type Severity Reaction Status Date / Time No Known Allergies Allergy Verified 11/10/17 21:48 Review of Systems ROS Statement: Those systems with pertinent positive or pertinent negative responses have been documented in the HPI. ROS Other: All systems not noted in ROS Statement are negative. Constitutional: Denies: fever, chills, weakness Eyes: Denies: eye pain, vision change ENT: Denies: ear pain, throat pain, dental pain, hearing loss, congestion Respiratory: Denies: cough, dyspnea Cardiovascular: Denies: chest pain, palpitations Endocrine: Denies: fatigue Gastrointestinal: Denies: abdominal pain, nausea, vomiting Genitourinary: Denies: dysuria, frequency Musculoskeletal: Denies: back pain, joint swelling, arthralgia, myalgia Skin: Denies: rash, change in color Neurological: Reports: headache, paresthesias. Denies: weakness, confusion, vertigo Past Medical History Past Medical History: Asthma Additional Past Medical History / Comment(s): MIGRAINES, kidney stones, ovarian cysts History of Any Multi-Drug Resistant Organisms: None Reported Past Surgical History: Appendectomy, Section, Tubal Ligation Additional Past Surgical History / Comment(s): EAR TUMOR Past Psychological History: Anxiety, Depression Smoking Status: Current every day smoker Past Alcohol Use History: Occasional Past Drug Use History: None Reported - Past Family History Mother Family Medical History: Cancer Additional Family Medical History / Comment(s): breast General Exam - General Exam Comments Initial Comments: Sitting up on side of bed. No acute distress. Conversing normally. Calm, pleasant. Well appearing. Well-groomed well-dressed. Limitations: no limitations General appearance: alert, in no apparent distress Head exam: Present: atraumatic, normocephalic Eye exam: Present: normal appearance, PERRL, EOMI, other (Pupils equal and reactive bilaterally. Eye movements intact bilaterally.). Absent: conjunctival injection, nystagmus, periorbital swelling, periorbital tenderness ENT exam: Present: normal exam, normal oropharynx, mucous membranes moist (Ear canals clear bilaterally, tympanic membranes clear bilaterally. Oropharynx clear. No dental abnormalities appreciated. No edema, swelling, abscess, signs of infection appreciated within the mouth, cheeks, oropharynx. No stridor.), TM's normal bilaterally, other Neck exam: Present: normal inspection, full ROM, other (Full range of motion the neck without pain. No swelling of the neck or submandibular swelling appreciated. Skin changes of the neck. Active and passive range of motion of the neck intact.). Absent: tenderness, meningismus, lymphadenopathy Respiratory exam: Present: normal lung sounds bilaterally. Absent: respiratory distress, wheezes, rales, stridor Cardiovascular Exam: Present: regular rate, normal rhythm GI/Abdominal exam: Present: soft. Absent: distended, tenderness, guarding Extremities exam: Present: normal inspection Neurological exam: Present: alert, oriented X3, CN II-XII intact, normal gait, other (Cranial nerves II through XII intact. Muscle strength 5 out of 5 in all extremities. Sensation intact in all extremities. [id number] coordinated bilaterally. Pronator drift negative bilaterally. Heel to grubbs Coordinated bilaterally. Forehead movements and eyelid movements intact. Muscle movements of the face intact bilaterally. Subjective decreased sensation over the right cheek right mandible. No swelling or edema of the face appreciated.). Absent: abnormal gait, motor sensory deficit Psychiatric exam: Present: normal affect, normal mood Skin exam: Present: warm, dry, intact, normal color. Absent: rash, cyanosis, erythema, vesicles Course Vital Signs 11/10/17 21:25 Temperature 98.1 F Pulse Rate 101 H Respiratory 18 Rate Blood Pressure 124/78 O2 Sat by Pulse 99 Oximetry Medical Decision Making - Medical Decision Making Patient denies . States last menstrual period 5 days ago. States has history of tubal ligation. Patient with complaints of subjective decreased sensation right side of face. Patient complains of intermittent headaches over the past one week. Patient has subjective decreased sensation on physical exam, however no other focal neuro deficits on exam. Symptoms may be secondary to trigeminal nerve pathology. Symptoms do not appear to be consistent with Farah's palsy at this time. No skin changes or signs of infection or edema. Symptoms could be secondary to complex migraine. Could be secondary to Multiple slerosis or other intracranial pathology. Discussed CT head to rule out signs of stroke or aneurysm, patient agrees. EKG: Normal sinus rhythm. Heart rate 100. No ST or T-wave changes. WBC 11 No significant lab abnormalities CTA head and neck negative. Patient updated with all results, states headache resolved status post medications, however starting to return. Patient requests another medication for headache, Toradol and Decadron ordered. Discussed lumbar puncture to rule out sentinel bleed or subarachnoid hemorrhage , patient declined. Patient understands that they'll perform a lumbar fracture can't assess for cranial infection, bleeding as cause of headache. Given patient's facial numbness and continued headache plan for observation for further monitoring and neuro evaluation. Spoke with Dr. Cuenca, repeat observation request neural consult to Dr. Montero Patient updated with the results and plan, resting comfortably in bed. No change in neurologic examination. We'll admit for observation. - Lab Data Result diagrams: 11/10/17 22:23 11/10/17 22:23 Lab Results 11/10/17 11/10/17 11/10/17 Range/Units 22:23 22:23 22:23 WBC 11.0 H (3.8-10.6) k/uL RBC 4.90 (3.80-5.40) m/uL Hgb 14.9 (11.4-16.0) gm/dL Hct 46.1 H (34.0-46.0) % MCV 94.0 (80.0-100.0) fL MCH 30.5 (25.0-35.0) pg MCHC 32.4 (31.0-37.0) g/dL RDW 13.0 (11.5-15.5) % Plt Count 257 (150-450) k/uL Neutrophils % 63 % Lymphocytes % 26 % Monocytes % 6 % Eosinophils % 2 % Basophils % 1 % Neutrophils # 6.9 (1.3-7.7) k/uL Lymphocytes # 2.8 (1.0-4.8) k/uL Monocytes # 0.7 (0-1.0) k/uL Eosinophils # 0.3 (0-0.7) k/uL Basophils # 0.1 (0-0.2) k/uL PT 9.5 (9.0-12.0) sec INR 1.0 (<1.2) APTT 23.0 (22.0-30.0) sec Sodium (137-145) mmol/L Potassium (3.5-5.1) mmol/L Chloride (98-107) mmol/L Carbon Dioxide (22-30) mmol/L Anion Gap mmol/L BUN (7-17) mg/dL Creatinine (0.52-1.04) mg/dL Est GFR (MDRD) Af Amer (>60 ml/min/1.73 sqM) Est GFR (MDRD) Non-Af (>60 ml/min/1.73 sqM) Glucose (74-99) mg/dL Calcium (8.4-10.2) mg/dL Troponin I <0.012 (0.000-0.034) ng/mL Urine Color Urine Appearance (Clear) Urine pH (5.0-8.0) Ur Specific [place] (1.001-1.035) Urine Protein (Negative) Urine Glucose (UA) (Negative) Urine Ketones (Negative) Urine Blood (Negative) Urine Nitrite (Negative) Urine Bilirubin (Negative) Urine Urobilinogen (<2.0) mg/dL Ur Leukocyte Esterase (Negative) Urine RBC (0-5) /hpf Urine WBC (0-5) /hpf Ur Squamous Epith Cells (0-4) /hpf Urine Bacteria (None) /hpf 11/10/17 11/10/17 Range/Units 22:23 22:23 WBC (3.8-10.6) k/uL RBC (3.80-5.40) m/uL Hgb (11.4-16.0) gm/dL Hct (34.0-46.0) % MCV (80.0-100.0) fL MCH (25.0-35.0) pg MCHC (31.0-37.0) g/dL RDW (11.5-15.5) % Plt Count (150-450) k/uL Neutrophils % % Lymphocytes % % Monocytes % % Eosinophils % % Basophils % % Neutrophils # (1.3-7.7) k/uL Lymphocytes # (1.0-4.8) k/uL Monocytes # (0-1.0) k/uL Eosinophils # (0-0.7) k/uL Basophils # (0-0.2) k/uL PT (9.0-12.0) sec INR (<1.2) APTT (22.0-30.0) sec Sodium 140 (137-145) mmol/L Potassium 4.1 (3.5-5.1) mmol/L Chloride 106 (98-107) mmol/L Carbon Dioxide 25 (22-30) mmol/L Anion Gap 9 mmol/L BUN 13 (7-17) mg/dL Creatinine 0.70 (0.52-1.04) mg/dL Est GFR (MDRD) Af Amer >60 (>60 ml/min/1.73 sqM) Est GFR (MDRD) Non-Af >60 (>60 ml/min/1.73 sqM) Glucose 104 H (74-99) mg/dL Calcium 9.8 (8.4-10.2) mg/dL Troponin I (0.000-0.034) ng/mL Urine Color Yellow Urine Appearance Cloudy H (Clear) Urine pH 6.5 (5.0-8.0) Ur Specific [place] 1.009 (1.001-1.035) Urine Protein Negative (Negative) Urine Glucose (UA) Negative (Negative) Urine Ketones Negative (Negative) Urine Blood Negative (Negative) Urine Nitrite Negative (Negative) Urine Bilirubin Negative (Negative) Urine Urobilinogen <2.0 (<2.0) mg/dL Ur Leukocyte Esterase Negative (Negative) Urine RBC 1 (0-5) /hpf Urine WBC 4 (0-5) /hpf Ur Squamous Epith Cells 6 H (0-4) /hpf Urine Bacteria Rare H (None) /hpf Disposition Clinical Impression: Facial numbness, Headache Disposition: ADMITTED IP TO THIS [facility] Condition: Good Referrals: None,Stated [Primary Care Provider] - 1-2 days
[2017-11-10] MEDS ORDERED: METOCLOPRAMIDE 5 MG/ML 2 ML VIAL IVP STA (22:14)
[2017-11-10] MEDS ORDERED: SODIUM CHLORIDE 0.9% 1,000 ML IV STA (22:14)
[2017-11-10] MEDS ORDERED: diphenhydrAMINE 50 MG/ML 1 ML VIAL IVP STA (22:14)
[2017-11-10 22:48] LABS: Basophils # (A) 0.1 k/uL (0-0.2); Basophils % (A) 1 %; Eosinophils # (A) 0.3 k/uL (0-0.7); Eosinophils % (A) 2 %; HCT 46.1 % (34.0-46.0); HGB 14.9 gm/dL (11.4-16.0); Lymphocytes # (A) 2.8 k/uL (1.0-4.8); Lymphocytes % (A) 26 %; MCH 30.5 pg (25.0-35.0); MCHC 32.4 g/dL (31.0-37.0); Mean Platelet Volume 7.1; Monocytes # (A) 0.7 k/uL (0-1.0); Monocytes % (A) 6 %; Neutrophils # (A) 6.9 k/uL (1.3-7.7); Neutrophils % (A) 63 %; Platelet Count 257 k/uL (150-450)
[2017-11-10] MEDS ORDERED: RX INFO: IV CONTRAST WAS GIVEN 1 EACH MISC MISCELLANE PRN (22:57)
[2017-11-10 22:59] LABS: Appearance,Urine Cloudy (Clear); Bacteria,Urine Rare /hpf; Bilirubin,Urine Negative (Negative); Blood,Urine Negative (Negative); Color,Urine Yellow; Glucose,Urine (UA) Negative (Negative); Ketones,Urine Negative (Negative); Leukocyte Esterase,Urine Negative (Negative); Nitrite,Urine Negative (Negative); PH, Urine 6.5 (5.0-8.0); Protein,Urine Negative (Negative); RBC,Urine 1 /hpf (0-5); Specific Gravity,Urine 1.009 (1.001-1.035); Squamous Epithelial Cell,Urine 6 /hpf (0-4); Urobilinogen,Urine <2.0 mg/dL (<2.0); WBC,Urine 4 /hpf (0-5)
[2017-11-10 23:02] LABS: Anion Gap 9 mmol/L; Blood Urea Nitrogen 13 mg/dL (7-17); Calcium 9.8 mg/dL (8.4-10.2); Carbon Dioxide 25 mmol/L (22-30); Chloride 106 mmol/L (98-107); Glucose 104 mg/dL (74-99); Potassium 4.1 mmol/L (3.5-5.1); Sodium 140 mmol/L (137-145)
[2017-11-10 23:16] LABS: Prothrombin Time 9.5 sec (9.0-12.0)
--- NOTE | 2017-11-10 23:38 | CT ---
EXAMINATION TYPE: CT angio head neck DATE OF EXAM: 11/10/2017 HISTORY: No prior, HIRSCH with right sided facial numbness and neck pain for 4 days COMPARISON: NONE CT DLP: 399.10 mGycm. Automated Exposure Control for Dose Reduction was Utilized. TECHNIQUE: CTA scan of the neck and head is performed with IV Contrast, patient injected with 65 mL of Omnipaque 350, axial images are obtained, coronal and sagittal reformatted images are reviewed. Th ree-D reconstructed images are created on an independent workstation and reviewed. FINDINGS: There is normal branching pattern of the great vessels on the aortic arch. Thyroid gland appears norm al. There is bilateral arterial flow in the vertebral arteries. Left vertebral artery is larger than the right. There is arterial flow in the vertebrobasilar artery system. There is bilateral arterial flow in the common internal and external carotid arteries. There is wide patency of the carotid artery bifurcations. The internal carotid arteries are widely patent. There is arterial flow in the anterior middle and posterior cerebral arteries. There is no mass effec t. There is no evidence of aneurysm or neovascularity. There is normal contrast opacification of the venous sinuses. There are a few cervical lymph nodes that measure up to 1 cm. There is no evidence of a neck mass. The ventricles and sulci appear normal. There is no midline shift. There is no sign of intracranial h emorrhage. There is no evidence of cerebral edema. CONCLUSION: Negative CT angiogram of the neck. Negative CT angiogram of the brain.
[2017-11-11] MEDS ORDERED: DEXAMETHASONE SOD PHOSPHATE 10 MG/ML 1 ML VIAL IV STA (00:11)
[2017-11-11] MEDS ORDERED: KETOROLAC 30 MG/ML 1 ML VIAL IVP STA (00:11)
[2017-11-11 01:25] VITALS: BMI 31.7
[2017-11-11] MEDS: HYDROcodone/APAP 5-325MG 1 EACH TAB PO PRN ×4 (02:18→22:38)
[2017-11-11] MEDS ORDERED: METHOCARBAMOL 500 MG TAB PO PRN (10:25)
[2017-11-11] MEDS ORDERED: DEXAMETHASONE SOD PHOSPHATE 4 MG/ML 1 ML VIAL IV PRN (10:26)
--- NOTE | 2017-11-11 13:48 | XR ---
EXAMINATION TYPE: XR orbit pre-MRI foreign body DATE OF EXAM: 11/11/2017 COMPARISON: NONE HISTORY: Pre-MRI clearance TECHNIQUE: 3 views of orbits including Gould and Ander frontal views and lateral views are acquir ed. FINDINGS: No metallic intraorbital foreign body is seen to prevent MRI study. Overlying soft tissue i s unremarkable. IMPRESSION: As above.
--- NOTE | 2017-11-11 14:07 | HP ---
HISTORY AND PHYSICAL CHIEF COMPLAINT: numbness and numbness in the right side of the neck with dysesthesias in the right hand. HISTORY OF PRESENT ILLNESS: This is a first admission for this 37-year-old white female. She came to the emergency room after she developed some numbness in the right cheek in front of the ear and down into the side of the neck. She also has dysesthesias in the right hand. She is right- handed. She did not notice weakness. She has also had some discomfort in the neck. She has never had a neck injury. She has had no fever, chills, masses, etc. She also has a lot of trouble with low back pain. REVIEW OF SYSTEMS: She has had no headaches or any other neurologic deficits. She has had no hand injuries. She has had no change in vision or the hearing and she has not had any earache. She has had no cough, shortness of breath, hemoptysis, hypertension, heart disease, murmurs, rheumatic fever, abdominal pain, nausea, vomiting, melena, hematochezia, jaundice, hematuria, frequency, urgency, arthralgias, diabetes, cancer. Past medical history, family history and personal and social histories reveal that she is not on any medications and she is not allergic to any. Surgically, she has had a , tubal ligation, appendectomy and removal of a ganglion from the dorsum of her left wrist. 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 She smokes daily. PHYSICAL EXAMINATION: Blood pressure is 136/78 with a pulse of 83, respirations of 20 and she is afebrile. In general, she appeared to be well-developed, well-nourished, in no acute distress. Skin color is normal, skin is warm and dry. Lymph nodes not enlarged. Head, ears, eyes, nose, mouth, and throat were normal. Neck veins are not distended. The carotids are normal. There is no mass in the right side of the neck of parotid area. Neck was supple. Chest was clear and cardiac exam is normal and the abdomen is soft, nontender. Extremities are normal. Neurologically, she seemed to be intact. IMPRESSION: Neck pain and dysesthesia is in the right preauricular area on the right side of the neck as well as right hand, probably due to cervical disc disease. PLAN: 1. Bed rest. 2. IV fluids. 3. Neurology consult. 4. MRI of the C-spine. MMODL / IJN: [id number] /
--- NOTE | 2017-11-11 14:58 | MR ---
EXAMINATION TYPE: MR cervical spine wo/w con DATE OF EXAM: 11/11/2017 2:06 PM COMPARISON: NONE HISTORY: R neck, arm dysesthesias CONTRAST: The patient was injected with 7.5 mL intravenous Gadavist gadolinium contrast. Multiplanar MultiSpin echo imaging of the cervical spine was performed. C2-C3: No evidence for degenerative disc disease. No disc bulge/herniation or protrusion. No Canal stenosis. Foramina are patent bilaterally. C3-C4: No evidence for degenerative disc disease. No disc bulge/herniation or protrusion. No Canal stenosis. Foramina are patent bilaterally. C4 hemangioma noted. C4-C5: No evidence for degenerative disc disease. No disc bulge/herniation or protrusion. No Canal stenosis. Foramina are patent bilaterally. C5-C6: Mild disc desiccation noted. Mild posterocentral disc protrusion. No evidence for cord contact or central stenosis. Foramina are patent bilaterally. C6-C7:No evidence for degenerative disc disease. No disc bulge/herniation or protrusion. No Canal s tenosis. Foramina are patent bilaterally. C7-T1: No evidence for degenerative disc disease. No disc bulge/herniation or protrusion. No Canal stenosis. Foramina are patent bilaterally. No cervical spine fracture. There is normal alignment. Cervical spinal cord is of normal signal. C raniovertebral junction relationships are within normal limits. No pathologic enhancement. IMPRESSION: 1. Mild disc protrusion at C5-6. Otherwise unremarkable study.
--- NOTE | 2017-11-11 16:09 | P.CONS ---
History of Present Illness - Reason for Consult Consult date: 11/11/17 Right facial numbness - Chief Complaint Right facial numbness - History of Present Illness Is a pleasant 37-year-old female being evaluated by the neurology service for right-sided facial neck and arm numbness. She was having no symptoms until about 6 days ago. She started to have some pain and tension in her right upper trapezius area. She believes she just pulled a muscle. It started to progress and get tighter, then she developed right occipital pain and a headache. About 2 days ago she went to her chiropractor that she sees for her low back pain. He did some cervical manipulation. When she woke the next day she had symptoms of right lower facial numbness in her entire right arm was numb. Her headache has not progressed much and there are no neurological warning signs with her headache. She has no significant history of migraines. She came in to the [facility] emergency room where a CT a of the head and neck were done. Both were negative. Given the above history and MRI of the cervical spine was obtained. There was a mild C5-C6 disc bulge, which would not be contributing to her symptoms. At the time of my exam she is still having a bit of a headache and is quite tender in the right occipital area. She denies significant numbness in the right upper extremity but says she does still feel numbness along the right jawline. In the previous week to 10 days she has had somewhat of an upper respiratory infection but believes it is getting better. She did have a mildly elevated white count. She has no nuchal rigidity rigidity and denies fevers, chills, nausea, vomiting or diarrhea. At the time of my exam she is resting comfortably in bed in mild distress because of her head pain. Review of Systems All systems: negative Constitutional: Reports as per HPI Past Medical History Past Medical History: Asthma Additional Past Medical History / Comment(s): MIGRAINES, kidney stones, ovarian cysts History of Any Multi-Drug Resistant Organisms: None Reported Past Surgical History: Appendectomy, Section, Tubal Ligation Additional Past Surgical History / Comment(s): cyst on left wrist removed Past Anesthesia/Blood Transfusion Reactions: No Reported Reaction Past Psychological History: Anxiety, Depression Smoking Status: Current every day smoker Past Alcohol Use History: Occasional Past Drug Use History: None Reported - Past Family History Mother Family Medical History: Cancer Additional Family Medical History / Comment(s): breast Father Family Medical History: Congestive Heart Failure (CHF) Additional Family Medical History / Comment(s): strokes muliple pt unsure at what age, pacer Medications and Allergies Home Medications Medication Instructions Recorded Confirmed Type Ibuprofen [Motrin] 600 mg PO Q6HR PRN #20 tab 08/17/17 11/10/17 Rx Methocarbamol [Robaxin] 500 mg PO ONCE PRN 11/10/17 11/10/17 History Allergies Allergy/AdvReac Type Severity Reaction Status Date / Time No Known Allergies Allergy Verified 11/10/17 21:48 Physical Exam Vitals: Vital Signs Temp Pulse Pulse Resp BP BP Pulse Ox 11/11/17 12:00 16 11/11/17 11:36 98.1 F 99 16 119/74 92 L 11/11/17 08:00 16 11/11/17 07:36 98.3 F 73 16 116/75 92 L 11/11/17 06:20 118/66 11/11/17 01:30 74 16 11/11/17 01:16 98.2 F 74 16 121/80 97 11/11/17 00:45 98.1 F 80 18 137/87 96 11/10/17 23:40 96 20 134/91 96 11/10/17 21:25 98.1 F 101 H 18 124/78 99 Intake and Output 11/11/17 11/11/17 11/11/17 06:59 14:59 22:59 Intake Total 476 Balance 476 Intake: Oral 476 Other: Voiding Method Toilet Toilet # Voids 2 Weight 83.9 kg - Constitutional General appearance: average body habitus, cooperative, no acute distress - EENT Eyes: no abnormal pupil, EOMI, PERRLA, no ptosis ENT: hearing grossly normal - Neck Neck: no lymphadenopathy, normal ROM, no rigidity Thyroid: negative: enlarged - Respiratory Respiratory: negative: prolonged expiration, prolonged inspiration - Cardiovascular Rhythm: regular - Gastrointestinal General gastrointestinal: no distended, no tenderness - Neurologic Patient is alert awake and oriented 3. Speech and language are normal. There is no facial asymmetry. Strength is full in bilateral upper lower extremities. She has a mild sensory deficit along the right jaw line, right side of the anterior neck, and right upper extremity to about mid forearm. There is no dysmetria or dysdiadochokinesia. Reflex testing is normal in bilateral upper lower extremities. There is no tremor or seizure-like activity seen. She does have tenderness in the area of the right greater occipital nerve. There is also tenderness of the right upper and mid trapezius muscle was some mild spasm and trigger points. Cervical spine shows normal range of motion with no crepitus. There is no nuchal rigidity. Results CBC & Chem 7: 11/10/17 22:23 11/10/17 22:23 Labs: Abnormal Lab Results - Last 24 Hours (Table) 11/10/17 11/10/17 11/10/17 Range/Units 22:23 22:23 22:23 WBC 11.0 H (3.8-10.6) k/uL Hct 46.1 H (34.0-46.0) % Glucose 104 H (74-99) mg/dL Urine Appearance Cloudy H (Clear) Ur Squamous Epith Cells 6 H (0-4) /hpf Urine Bacteria Rare H (None) /hpf Assessment and Plan (1) Right upper extremity numbness Current Visit: Yes Status: Acute Code(s): R20.2 - PARESTHESIA OF SKIN SNOMED Code(s): 974330972 (2) Occipital neuritis Current Visit: Yes Status: Acute Code(s): M54.81 - OCCIPITAL NEURALGIA SNOMED Code(s): 96280671 (3) Cervicalgia Current Visit: Yes Status: Acute Code(s): M54.2 - CERVICALGIA SNOMED Code( s): 37288588 (4) Cervical disc displacement Current Visit: Yes Status: Chronic Code(s): M50.20 - OTHER CERVICAL DISC DISPLACEMENT, UNSP CERVICAL REGION SNOMED Code(s): 748457440 (5) Cervical radiculopathy Current Visit: Yes Status: Suspected Code(s): M54.12 - RADICULOPATHY, CERVICAL REGION SNOMED Code(s): 48088441 (6) Facial numbness Current Visit: Yes Status: Acute Code(s): R20.0 - ANESTHESIA OF SKIN SNOMED Code(s): 223385541 (7) Headache Current Visit: Yes Status: Acute Code(s): R51 - HEADACHE SNOMED Code(s): 62818470 Plan: Given the above history her symptoms did start after chiropractic manipulation of the cervical spine. She is probably experiencing some acute inflammatory response to that giving her radicular-type symptoms. She also has some muscle spasm of the right upper and middle trapezius which has caused some right occipital neuritis. This would explain her headache. She has no neurological warning signs with her headache. Doubt any central infectious process as she has no nuchal rigidity. Her CTA of the head and neck was negative. MRI of the cervical spine was unremarkable. However, I will order MRI of the brain with and without contrast. Given her age and presenting symptoms, we are looking more for a demyelinating process rather than cerebrovascular etiology. I will start her on IV Solu-Medrol 125 mg IV piggyback every 8 hours to see if her symptoms improve. I did discuss this plan with her and she understands the differential diagnosis. We will discuss results tomorrow. In The meantime continue pain medications as needed. Continue neurological checks and alert us with any change in her neurological status. We will continue to follow. I have performed a history and physical on the above patient. I have reviewed the above note, and agree.
[2017-11-11] MEDS: IBUPROFEN 600 MG TAB PO PRN (17:05)
[2017-11-11] MEDS: methylPREDNISolone SOD SUCCI 125 MG/2 ML VIAL IV SCH ×2 (17:06→23:45)
[2017-11-11 17:12] LABS: Glucose,Whole Blood 139 mg/dL (75-99)
[2017-11-11] MEDS: INSULIN ASPART 100 UNIT/ML 1 ML 10 ML VIAL SQ SCH ×2 (17:22→23:45)
[2017-11-11] MEDS: METHOCARBAMOL 500 MG TAB PO PRN (20:25)
[2017-11-11 20:50] LABS: Glucose,Whole Blood 150 mg/dL (75-99)
[2017-11-11] MEDS: busPIRone HCl 5 MG TAB PO PRN (21:28)
[2017-11-11 23:41] LABS: Glucose,Whole Blood 146 mg/dL (75-99)
[2017-11-12] MEDS: IBUPROFEN 600 MG TAB PO PRN ×3 (04:50→23:35)
[2017-11-12] MEDS: METHOCARBAMOL 500 MG TAB PO PRN ×3 (04:50→23:35)
[2017-11-12] MEDS: HYDROcodone/APAP 5-325MG 1 EACH TAB PO PRN ×2 (06:00→20:58)
[2017-11-12] MEDS: busPIRone HCl 5 MG TAB PO PRN ×2 (06:01→20:55)
[2017-11-12 06:46] LABS: Glucose,Whole Blood 144 mg/dL (75-99)
[2017-11-12 07:10] LABS: Basophils % (A) 0 %; Eosinophils % (A) 0 %; HGB 13.9 gm/dL (11.4-16.0); Lymphocytes # (A) 0.9 k/uL (1.0-4.8); Lymphocytes % (A) 5 %; MCH 30.8 pg (25.0-35.0); MCHC 33.8 g/dL (31.0-37.0); MCV 91.2 fL (80.0-100.0); Mean Platelet Volume 7.1; Monocytes # (A) 0.3 k/uL (0-1.0); Monocytes % (A) 2 %; Neutrophils # (A) 18.7 k/uL (1.3-7.7); Neutrophils % (A) 94 %; Platelet Count 250 k/uL (150-450); RBC 4.49 m/uL (3.80-5.40)
[2017-11-12 08:10] LABS: Anion Gap 10 mmol/L; Blood Urea Nitrogen 12 mg/dL (7-17); Calcium 9.2 mg/dL (8.4-10.2); Carbon Dioxide 21 mmol/L (22-30); Chloride 109 mmol/L (98-107); Glucose 135 mg/dL (74-99); Magnesium 1.9 mg/dL (1.6-2.3); Phosphorus 3.7 mg/dL (2.5-4.5); Sodium 140 mmol/L (137-145)
[2017-11-12 08:18] LABS: Potassium 4.1 mmol/L (3.5-5.1)
[2017-11-12] MEDS: INSULIN ASPART 100 UNIT/ML 1 ML 10 ML VIAL SQ SCH ×3 (08:54→23:36)
[2017-11-12] MEDS: methylPREDNISolone SOD SUCCI 125 MG/2 ML VIAL IV SCH ×3 (08:54→23:34)
[2017-11-12] MEDS: BUTA/APAP/CAF/COD 50-325-40-30 CAP PO PRN ×2 (12:36→18:58)
[2017-11-12] MEDS: PROCHLORPERAZINE 10 MG TAB PO PRN ×2 (13:36→18:59)
--- NOTE | 2017-11-12 14:32 | P.CONS ---
History of Present Illness - Reason for Consult Consult date: 11/12/17 Leukocytosis - History of Present Illness This is a 37-year-old female who gives history of having cold symptoms for 8 days and at the end of that she woke up one morning and had a kink in her neck following that, she developed a funny feeling such as numbness into her chin. She went to a chiropractor and was told to keep ice on the back of her neck but she continued to have the numbness in the right cheek the right lateral neck area and pain in the occipital area. She denies any visual changes , no facial droop, no confusion or speech difficulties. She also gives history that she was bitten by a dog in August that broke the skin on her right hand which has completely healed. Patient came into [facility] emergency center for evaluation. She underwent MRI of the cervical spine that showed mild disc protrusion C5 6. CTA of the head and neck was negative. She has been afebrile and initial white count was 11. She was offered a lumbar puncture but she declined this. She was placed on the observation unit and has been seen in consultation by Dr. Gerard. Symptoms are thought to be radicular type pain and muscle spasms in the right upper and middle trapezius as well as right occipital neuritis. An MRI of the brain has been ordered to rule out demyelinating process and patient has been started on Solu-Medrol. Patient was initially on dexamethasone starting on November 11 and now was on Solu-Medrol 125 mg every 8 hours. Patient has been afebrile since presentation. Her white count is now at 20. Blood culture has being obtained at the time of this evaluation. Patient complains of significant migraine headache the worse that she's ever had. She also complains of significant pain in the occipital region more so on the right side along with the numbness sensation on the right neck which has slightly improved. She relates that on presentation she thought her throat was swelling and she has a strong gag reflex but states that this was confirmed she did not have any swelling. She denies having any vomiting or diarrhea. She now has a cough which is new. She denies dysuria. Review of Systems All systems: negative Constitutional: Denies chills, Denies fatigue, Denies fever, Denies poor appetite, Denies weakness, Denies weight loss Eyes: denies blurred vision, denies pain Ears, nose, mouth and throat: Reports headache, Denies dental pain, Denies mouth pain, Denies sore throat Cardiovascular: Denies chest pain, Denies decreased exercise tolerance, Denies dyspnea on exertion, Denies edema, Denies leg edema, Denies shortness of breath , Denies syncope Respiratory: Reports cough, Denies cough with sputum, Denies dyspnea, Denies excessive sputum, Denies hemoptysis, Denies home oxygen, Denies wheezing Gastrointestinal: Reports nausea, Denies abdominal pain, Denies diarrhea, Denies vomiting Genitourinary: Denies dysuria, Denies hematuria, Denies urgency Musculoskeletal: Denies myalgias Integumentary: Denies pruritus, Denies rash, Denies wounds Neurological: Reports migraines, Denies confusion, Denies convulsions, Denies double vision, Denies gait dysfunction, Denies head injury, Denies hearing difficulties, Denies lack of coordination, Denies loss of vision, Denies memory loss, Denies numbness, Denies paralysis, Denies seizures, Denies vertigo, Denies weakness Psychiatric: Denies anxiety, Denies depression Endocrine: Denies fatigue, Denies weight change Past Medical History Past Medical History: Asthma Additional Past Medical History / Comment(s): MIGRAINES, kidney stones, ovarian cysts History of Any Multi-Drug Resistant Organisms: None Reported Past Surgical History: Appendectomy, Section, Tubal Ligation Additional Past Surgical History / Comment(s): cyst on left wrist removed Past Anesthesia/Blood Transfusion Reactions: No Reported Reaction Past Psychological History: Anxiety, Depression Smoking Status: Current every day smoker Past Alcohol Use History: Occasional Additional Past Alcohol Use History / Comment(s): Patient is a smoker of one and half to 1 pack per day for 3 years but smokes on and off. She denies any medical marijuana, marijuana, street drug use. She states she drinks occasionally. She lives at home with HER-2 sons that are 17 and 13 years of age as well as her father who has history of brain injury. Past Drug Use History: None Reported - Past Family History Mother Family Medical History: Cancer Additional Family Medical History / Comment(s): breast Father Family Medical History: Congestive Heart Failure (CHF) Additional Family Medical History / Comment(s): strokes muliple pt unsure at what age, pacer Medications and Allergies Home Medications Medication Instructions Recorded Confirmed Type Ibuprofen [Motrin] 600 mg PO Q6HR PRN #20 tab 08/17/17 11/10/17 Rx Methocarbamol [Robaxin] 500 mg PO ONCE PRN 11/10/17 11/10/17 History Allergies Allergy/AdvReac Type Severity Reaction Status Date / Time No Known Allergies Allergy Verified 11/10/17 21:48 Physical Exam Vitals: Vital Signs Temp Pulse Resp BP Pulse Ox 11/12/17 07:56 97.9 F 75 16 115/65 93 L 11/12/17 04:00 16 11/12/17 00:00 16 11/11/17 23:52 98.4 F 93 16 126/77 92 L 11/11/17 20:00 16 11/11/17 16:00 98 F 76 16 128/85 95 Intake and Output 11/11/17 11/12/17 11/12/17 22:59 06:59 14:59 Intake Total 444 Balance 444 Intake: Oral 444 Other: Voiding Method Toilet Toilet Toilet # Voids 1 1 Gen: This is a 37-year-old female patient. She is in bed with tidal over her eyes. She complains of photophobia. HEENT: Head is atraumatic, normocephalic. Pupils equal, round. Sclerae is anicteric. Oral mucous membranes are moist. No thrush noted. Oropharynx is without significant redness or erythema. She is some mild tenderness to the right occipital area with radiation and goes down into her neck. NECK: Supple. No JVD. No lymphadenopathy. No thyromegaly. LUNGS: Clear to auscultation. No wheezes or rhonchi. No intercostal retractions. HEART: Regular rate and rhythm. No murmur. ABDOMEN: Soft. Bowel sounds are present. No masses. No tenderness. EXTREMITIES: No pedal edema. No calf tenderness. Dorsalis pedis +2 bilaterally. NEUROLOGICAL: Patient is awake, alert and oriented x3. Cranial nerves 2 through 12 are grossly intact. Results Results: Laboratory Results WBC 20.0 k/uL (3.8-10.6) H 11/12/17 06:51 RBC 4.49 m/uL (3.80-5.40) 11/12/17 06:51 Hgb 13.9 gm/dL (11.4-16.0) 11/12/17 06:51 Hct 41.0 % (34.0-46.0) 11/12/17 06:51 MCV 91.2 fL (80.0-100.0) 11/12/17 06:51 MCH 30.8 pg (25.0-35.0) 11/12/17 06:51 MCHC 33.8 g/dL (31.0-37.0) 11/12/17 06:51 RDW 13.0 % (11.5-15.5) 11/12/17 06:51 Plt Count 250 k/uL (150-450) 11/12/17 06:51 Neutrophils % 94 % 11/12/17 06:51 Lymphocytes % 5 % 11/12/17 06:51 Monocytes % 2 % 11/12/17 06:51 Eosinophils % 0 % 11/12/17 06:51 Basophils % 0 % 11/12/17 06:51 Neutrophils # 18.7 k/uL (1.3-7.7) H 11/12/17 06:51 Lymphocytes # 0.9 k/uL (1.0-4.8) L 11/12/17 06:51 Monocytes # 0.3 k/uL (0-1.0) 11/12/17 06:51 Eosinophils # 0.0 k/uL (0-0.7) 11/12/17 06:51 Basophils # 0.0 k/uL (0-0.2) 11/12/17 06:51 PT 9.5 sec (9.0-12.0) 11/10/17 22:23 INR 1.0 (<1.2) 11/10/17 22:23 APTT 23.0 sec (22.0-30.0) 11/10/17 22:23 Sodium 140 mmol/L (137-145) 11/12/17 06:51 Potassium 4.1 mmol/L (3.5-5.1) 11/12/17 06:51 Chloride 109 mmol/L (98-107) H 11/12/17 06:51 Carbon Dioxide 21 mmol/L (22-30) L 11/12/17 06:51 Anion Gap 10 mmol/L 11/12/17 06:51 BUN 12 mg/dL (7-17) 11/12/17 06:51 Creatinine 0.53 mg/dL (0.52-1.04) 11/12/17 06:51 Est GFR (MDRD) Af Amer >60 (>60 ml/min/1.73 sqM) 11/12/17 06:51 Est GFR (MDRD) Non-Af >60 (>60 ml/min/1.73 sqM) 11/12/17 06:51 Glucose 135 mg/dL (74-99) H 11/12/17 06:51 POC Glucose (mg/dL) 144 mg/dL (75-99) H 11/12/17 06:45 POC Glu Hand Lens Polisher ID Victorina Dey 11/12/17 06:45 Calcium 9.2 mg/dL (8.4-10.2) 11/12/17 06:51 Phosphorus 3.7 mg/dL (2.5-4.5) 11/12/17 06:51 Magnesium 1.9 mg/dL (1.6-2.3) 11/12/17 06:51 Troponin I <0.012 ng/mL (0.000-0.034) 11/10/17 22:23 Urine Color Yellow 11/10/17 22: Urine Appearance Cloudy (Clear) H 11/10/17 22: Urine pH 6.5 (5.0-8.0) 11/10/17 22: Ur Specific [place] 1.009 (1.001-1.035) 11/10/17 22: Urine Protein Negative (Negative) 11/10/17 22: Urine Glucose (UA) Negative (Negative) 11/10/17 22: Urine Ketones Negative (Negative) 11/10/17 22: Urine Blood Negative (Negative) 11/10/17 22: Urine Nitrite Negative (Negative) 11/10/17 22: Urine Bilirubin Negative (Negative) 11/10/17 22: Urine Urobilinogen <2.0 mg/dL (<2.0) 11/10/17 22:23 Ur Leukocyte Esterase Negative (Negative) 11/10/17 22:23 Urine RBC 1 /hpf (0-5) 11/10/17 22:23 Urine WBC 4 /hpf (0-5) 11/10/17 22:23 Ur Squamous Epith Cells 6 /hpf (0-4) H 11/10/17 22:23 Urine Bacteria Rare /hpf (None) H 11/10/17 22:23 CBC & Chem 7: 11/12/17 06:51 11/12/17 06:51 Labs: Abnormal Lab Results - Last 24 Hours (Table) 11/11/17 11/11/17 11/11/17 Range/Units 17:09 20:48 23:39 WBC (3.8-10.6) k/uL Neutrophils # (1.3-7.7) k/uL Lymphocytes # (1.0-4.8) k/uL Chloride (98-107) mmol/L Carbon Dioxide (22-30) mmol/L Glucose (74-99) mg/dL POC Glucose (mg/dL) 139 H 150 H 146 H (75-99) mg/dL 11/12/17 11/12/17 11/12/17 Range/Units 06:45 06:51 06:51 WBC 20.0 H (3.8-10.6) k/uL Neutrophils # 18.7 H (1.3-7.7) k/uL Lymphocytes # 0.9 L (1.0-4.8) k/uL Chloride 109 H (98-107) mmol/L Carbon Dioxide 21 L (22-30) mmol/L Glucose 135 H (74-99) mg/dL POC Glucose (mg/dL) 144 H (75-99) mg/dL Assessment and Plan Plan: This is a 37-year-old female who presented to the hospital with symptoms of numbness to her right cheek and neck, occipital pain and migraine headache. Fioricet will be added for headache. She presented with a white count of 11 and following dexamethasone and Solu-Medrol her white count is now at 20. There does not appear to be any signs of infection. Most likely leukocytosis is secondary to steroids. No need for antibiotics at this point. Continue supportive care. Further recommendations as patient regresses. The above dictated assessment and findings were discussed with Dr. Rodas. The impression and plan of care have been directed as dictated. Keyona Gonzales nurse practitioner acting as scribe for Dr. Rodas.
--- NOTE | 2017-11-12 15:03 | MR ---
EXAMINATION TYPE: MR brain wo/w con DATE OF EXAM: 11/12/2017 COMPARISON: CTA head and neck 2 days earlier. HISTORY: Numbness to face/upper extremities TECHNIQUE: Multiplanar, multisequence images of the brain and brainstem is performed without and with IV contras t, utilizing 7.5 mL intravenous Gadavist . FINDINGS: Diffusion weighted images demonstrate no evidence of a recent infarct or other diffusion ab normality. There is no extra-axial fluid collection or significant white matter signal abnormality. The ventricular system and cisternal spaces are normal in size and appearance. The brain volume is age appropriate. Midline structures demonstrate normal morphology. The craniocervical junction appears within normal limits. Post contrast images demonstrate no abnormal enhancement. The dural venous sinuses appear pa tent. The visualized sinuses are clear and the globes are intact. IMPRESSION: No evidence of a recent infarct. Unremarkable study without significant finding seen to a ccount for patient's symptoms.
--- NOTE | 2017-11-12 15:06 | P.PN ---
Subjective Progress Note Date: 11/12/17 Principal diagnosis: Right facial numbness This is a pleasant 37-year-old female continuing be evaluated by the neurology service for right sided facial neck and arm numbness. A call that she started to have some pain in tension in her right upper trapezius area a few days ago. She then developed some right occipital pain and a headache. She went to her chiropractor who did some aggressive cervical manipulation. When she woke the next day she had right lower facial numbness and her entire right arm was numb. We did start her on IV Solu-Medrol and her right upper extremity symptoms have mostly resolved. She still has some numbness in the right neck and lower right jaw but it is much less severe. Time my exam she is resting comfortably in bed in no acute distress. She still has some right occipital tenderness. She is awaiting MRI of the brain. She has had recent illness and was seen for an upper respiratory infection, so I believe workup for an infectious process is also underway. Objective - Vital Signs Vital signs: Vital Signs Temp 97.9 F 11/12/17 07:56 Pulse 75 11/12/17 07:56 Resp 16 11/12/17 07:56 BP 115/65 11/12/17 07:56 Pulse Ox 93 L 11/12/17 07:56 Intake & Output 11/11/17 11/12/17 11/12/17 18:59 06:59 18:59 Intake Total 1520 Balance 1520 Intake: Oral 1520 Other: Voiding Method Toilet Toilet Toilet # Voids 1 - Constitutional General appearance: Present: cooperative, no acute distress - EENT Eyes: Present: EOMI, PERRLA. Absent: abnormal pupil, ptosis ENT: Present: hearing grossly normal - Neck Details: Right occipital nerve tenderness to palpation Neck: Present: normal ROM - Respiratory Respiratory: negative: prolonged expiration, prolonged inspiration - Cardiovascular Rhythm: regular - Neurologic Neurologic Comment(s): Patient is alert awake and oriented 3. Speech-language are normal. There is no facial asymmetry. There is no strength deficit in any extremity. There is no sensory deficit in any extremity. She still has some mild decreased sensation to light touch on the right shoulder and right lower jaw. This is less so than yesterday. There is no tremor or seizure-like activity seen. Again there is no nuchal rigidity but there is some tenderness over the right greater occipital nerve. - Labs CBC & Chem 7: 11/12/17 06:51 11/12/17 06:51 Labs: Abnormal Lab Results - Last 24 Hours (Table) 11/11/17 11/11/17 11/11/17 Range/Units 17:09 20:48 23:39 WBC (3.8-10.6) k/uL Neutrophils # (1.3-7.7) k/uL Lymphocytes # (1.0-4.8) k/uL Chloride (98-107) mmol/L Carbon Dioxide (22-30) mmol/L Glucose (74-99) mg/dL POC Glucose (mg/dL) 139 H 150 H 146 H (75-99) mg/dL 11/12/17 11/12/17 11/12/17 Range/Units 06:45 06:51 06:51 WBC 20.0 H (3.8-10.6) k/uL Neutrophils # 18.7 H (1.3-7.7) k/uL Lymphocytes # 0.9 L (1.0-4.8) k/uL Chloride 109 H (98-107) mmol/L Carbon Dioxide 21 L (22-30) mmol/L Glucose 135 H (74-99) mg/dL POC Glucose (mg/dL) 144 H (75-99) mg/dL Assessment and Plan (1) Right upper extremity numbness Current Visit: Yes Status: Acute Code(s): R20.2 - PARESTHESIA OF SKIN SNOMED Code(s): 125983910 (2) Occipital neuritis Current Visit: Yes Status: Acute Code(s): M54.81 - OCCIPITAL NEURALGIA SNOMED Code(s): 55240423 (3) Cervicalgia Current Visit: Yes Status: Acute Code(s): M54.2 - CERVICALGIA SNOMED Code( s): 02405505 (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 She is probably experiencing some acute inflammatory response to that giving her radicular-type symptoms. She also has some muscle spasm of the right upper and middle trapezius which has caused some right occipital neuritis. This would explain her headache. She has no neurological warning signs with her headache. Doubt any central infectious process as she has no nuchal rigidity. Her CTA of the head and neck was negative. MRI of the cervical spine was unremarkable. However, I did order MRI of the brain with and without contrast. Given her age and presenting symptoms, we are looking more for a demyelinating process rather than cerebrovascular etiology. I did start her on IV Solu-Medrol 125 mg IV piggyback every 8 hours, and this may be improving her symptoms. I did discuss this plan with her and she understands the differential diagnosis. We will discuss results tomorrow. In The meantime continue pain medications as needed. Continue neurological checks and alert us with any change in her neurological status. We will continue to follow. I have performed a history and physical on the above patient. I have reviewed the above note, and agree.
[2017-11-12 15:59] LABS: Glucose,Whole Blood 142 mg/dL (75-99)
--- NOTE | 2017-11-12 16:44 | PN ---
PROGRESS NOTE CHIEF COMPLAINT: Numbness in the right preauricular area, right side of the neck, and dysesthesias in the right hand. HISTORY OF PRESENT ILLNESS: This lady is complaining severely of a headache. MRI did not demonstrate any significant appropriate or matching pathology to explain her neck and arm symptoms. MRI of the brain has been ordered. She has no focal neurologic deficits or signs and she has not had any change in vision or hearing. Her white count is elevated at 20,000, however. She has no fever or chills. She has no urinary complaints or cough. PHYSICAL EXAMINATION: Chest is clear. Cardiac exam is normal. The abdomen is soft and nontender. Neurologically she has no positive findings. IMPRESSION: 1. Increasing headache. 2. Dysesthesias in the right side of the face and neck as well as the right hand. 3. Leukocytosis. PLAN: 1. Blood cultures. 2. Consult with Infectious Disease. 3. Await results of brain MRI. 4. Consider lumbar puncture. ADDENDUM: The patient has decided to change physicians, and this will be arranged. MMODL / IJN: [id number] /
[2017-11-12] MEDS ORDERED: KETOROLAC 30 MG/ML 1 ML VIAL IVP ONE (20:04)
[2017-11-12] MEDS ORDERED: LORazepam 2 MG/ML INJ IV STA (21:06)
--- NOTE | 2017-11-12 23:02 | P.CON ---
Consult Note - . Consult date: 11/12/17 Assessment/Plan:: This is a 37-year-old female who gives history of having cold symptoms for 8 days and at the end of that she woke up one morning and had a kink in her neck following that, she developed a funny feeling such as numbness into her chin. She went to a chiropractor and was told to keep ice on the back of her neck but she continued to have the numbness in the right cheek the right lateral neck area and pain in the occipital area. She denies any visual changes , no facial droop, no confusion or speech difficulties. She also gives history that she was bitten by a dog in August that broke the skin on her right hand which has completely healed. Patient came into [facility] emergency center for evaluation. She underwent MRI of the cervical spine that showed mild disc protrusion C5 6. CTA of the head and neck was negative. She has been afebrile and initial white count was 11. She was offered a lumbar puncture but she declined this. She was placed on the observation unit and has been seen in consultation by Dr. Gerard. Symptoms are thought to be radicular type pain and muscle spasms in the right upper and middle trapezius as well as right occipital neuritis. An MRI of the brain has been ordered to rule out demyelinating process and patient has been started on Solu-Medrol. Patient was initially on dexamethasone starting on November 11 and now was on Solu-Medrol 125 mg every 8 hours. Patient has been afebrile since presentation. Her white count is now at 20. Blood culture has being obtained at the time of this evaluation. Patient complains of significant migraine headache the worse that she's ever had. She also complains of significant pain in the occipital region more so on the right side along with the numbness sensation on the right neck which has slightly improved. She relates that on presentation she thought her throat was swelling and she has a strong gag reflex but states that this was confirmed she did not have any swelling. She denies having any vomiting or diarrhea. She now has a cough which is new. She denies dysuria. Please see the consult note as dictated by nurse practitioner Mrs. Keyona Gonzales. This pleasant woman has been noted to have evidence of significant occipital neuritis with pain into her neck radiating to her arms. She relates after going down for MRI scan she denies having a bit of a flare with increasing pain and worsening headache after laying on the MRI table and being exposed to loud noise. Receiving multiple agents to make her more comfortable. The neurological evaluations continue. Today no evidence of any acute infections. Receiving large doses of Solu-Medrol to try to help with her acute inflammatory response. MRI to evaluate for the possibility of demyelinating disease of the brain. Agree with no antibiotic therapy at this time and we shall monitor. His evaluation, assessment and plan as dictated by nurse practitioner Mrs. Keyona Gonzales.
[2017-11-12 23:37] LABS: Glucose,Whole Blood 129 mg/dL (75-99)
[2017-11-13 06:32] LABS: Glucose,Whole Blood 125 mg/dL (75-99)
[2017-11-13] MEDS: INSULIN ASPART 100 UNIT/ML 1 ML 10 ML VIAL SQ SCH ×2 (07:28→16:58)
[2017-11-13] MEDS: PROCHLORPERAZINE 10 MG TAB PO PRN ×2 (09:26→18:38)
[2017-11-13] MEDS: methylPREDNISolone SOD SUCCI 125 MG/2 ML VIAL IV SCH (09:27)
[2017-11-13] MEDS: BUTA/APAP/CAF/COD 50-325-40-30 CAP PO PRN ×2 (09:27→18:38)
[2017-11-13] MEDS ORDERED: ONDANSETRON 4 MG/2 ML VIAL IVP PRN (11:53)
[2017-11-13] MEDS: KETOROLAC 30 MG/ML 1 ML VIAL IVP SCH ×2 (12:30→17:31)
[2017-11-13] MEDS: FAMOTIDINE 20 MG TAB PO SCH ×2 (13:50→21:16)
--- NOTE | 2017-11-13 15:05 | P.PN ---
Subjective Progress Note Date: 11/13/17 Principal diagnosis: Right facial numbness This is a pleasant 37-year-old female continuing be evaluated by the neurology service for right sided facial neck and arm numbness. Recall that she started to have some pain in tension in her right upper trapezius area a few days ago. She then developed some right occipital pain and a headache. She went to her chiropractor who did some aggressive cervical manipulation. When she woke the next day she had right lower facial numbness and her entire right arm was numb. We did start her on IV Solu-Medrol and her right upper extremity symptoms have mostly resolved. She still has some numbness in the lower right jaw but it is much less severe. She still has some right occipital tenderness. I did discuss with her her normal MRI of the brain. She has had recent illness and was seen for an upper respiratory infection, so I believe workup for an infectious process is also underway. She has no new neurological symptoms since my last exam. Objective - Vital Signs Vital signs: Vital Signs Temp 98.4 F 11/13/17 08:00 Pulse 75 11/13/17 08:00 Resp 16 11/13/17 08:00 BP 119/69 11/13/17 08:00 Pulse Ox 94 L 11/13/17 08:00 Intake & Output 11/12/17 11/13/17 11/13/17 18:59 06:59 18:59 Intake Total 360 Balance 360 Intake: Oral 360 Other: Voiding Method Toilet Toilet Toilet - Constitutional General appearance: Present: average body habitus, cooperative, mild distress - EENT Eyes: Present: EOMI, PERRLA. Absent: abnormal pupil, ptosis ENT: Present: hearing grossly normal - Neck Details: Right sided greater occipital nerve tenderness Neck: Present: normal ROM. Absent: rigidity - Respiratory Respiratory: negative: prolonged expiration, prolonged inspiration - Cardiovascular Rhythm: regular - Neurologic Neurologic Comment(s): Patient is alert awake and oriented 3. Speech and language are normal. There is no facial asymmetry. She is generally a little weak but overall strength testing is normal and symmetrical. She does have some pain with rotation of her neck. She is tender at the upper and middle right trapezius muscle and greater occipital nerve on the right. No tremors or seizure-like activities are seen. - Labs CBC & Chem 7: 11/12/17 06:51 02/14/18 06:51 Labs: Abnormal Lab Results - Last 24 Hours (Table) 11/12/17 11/12/17 11/13/17 Range/Units 15:56 23:34 06:30 POC Glucose (mg/dL) 142 H 129 H 125 H (75-99) mg/dL Microbiology - Last 24 Hours (Table) 11/12/17 12:05 Blood Culture - Preliminary Blood No Growth after 24 hours Assessment and Plan (1) Right upper extremity numbness Current Visit: Yes Status: Acute Code(s): R20.2 - PARESTHESIA OF SKIN SNOMED Code(s): 041279371 (2) Occipital neuritis Current Visit: Yes Status: Acute Code(s): M54.81 - OCCIPITAL NEURALGIA SNOMED Code(s): 14122751 (3) Cervicalgia Current Visit: Yes Status: Acute Code(s): M54.2 - CERVICALGIA SNOMED Code( s): 92627834 (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 She is probably experiencing some acute inflammatory response to that giving her radicular-type symptoms. She also has some muscle spasm of the right upper and middle trapezius which has caused some right occipital neuritis. This would explain her headache. She has no neurological warning signs with her headache. Doubt any central infectious process as she has no nuchal rigidity. Her CTA of the head and neck was negative. MRI of the cervical spine was unremarkable. However, I did order MRI of the brain with and without contrast. Given her age and presenting symptoms, we were looking more for a demyelinating process rather than cerebrovascular etiology. Her MRI of the brain was normal. I did start her on IV Solu-Medrol 125 mg IV piggyback every 8 hours, and this may have improved her right upper extremity symptoms. I will discontinue IV steroids. In The meantime continue pain medications as needed. Lidocaine patches have been added. She can be discharged from a neurological standpoint and follow up in our office, likely for a greater occipital nerve block on the right. Feel free to contact us as needed for any changes in her neurological status. I have performed a history and physical on the above patient. I have reviewed the above note, and agree.
[2017-11-13] MEDS: LIDOCAINE 5% PATCH TOPICAL SCH (15:36)
[2017-11-13 16:11] LABS: Glucose,Whole Blood 120 mg/dL (75-99)
[2017-11-13] MEDS ORDERED: MELATONIN 5 MG TABLET PO SCH (21:00)
[2017-11-13] MEDS: METHOCARBAMOL 500 MG TAB PO PRN (21:16)
[2017-11-13] MEDS: HYDROcodone/APAP 5-325MG 1 EACH TAB PO PRN (21:16)
[2017-11-13] MEDS: busPIRone HCl 5 MG TAB PO PRN (21:16)
--- NOTE | 2017-11-13 23:00 | P.PN ---
Subjective Progress Note Date: 11/13/17 Principal diagnosis: Headache This is a 37-year-old female who gives history of having cold symptoms for 8 days and at the end of that she woke up one morning and had a kink in her neck following that, she developed a funny feeling such as numbness into her chin. She went to a chiropractor and was told to keep ice on the back of her neck but she continued to have the numbness in the right cheek the right lateral neck area and pain in the occipital area. She denies any visual changes , no facial droop, no confusion or speech difficulties. She also gives history that she was bitten by a dog in August that broke the skin on her right hand which has completely healed. Patient came into [facility] emergency center for evaluation. She underwent MRI of the cervical spine that showed mild disc protrusion C5 6. CTA of the head and neck was negative. She has been afebrile and initial white count was 11. She was offered a lumbar puncture but she declined this. She was placed on the observation unit and has been seen in consultation by Dr. Gerard. Symptoms are thought to be radicular type pain and muscle spasms in the right upper and middle trapezius as well as right occipital neuritis. An MRI of the brain has been ordered to rule out demyelinating process and patient has been started on Solu-Medrol. Patient was initially on dexamethasone starting on November 11 and now was on Solu-Medrol 125 mg every 8 hours. Patient has been afebrile since presentation. Her white count is now at 20. Blood culture has being obtained at the time of this evaluation. Patient complains of significant migraine headache the worse that she's ever had. She also complains of significant pain in the occipital region more so on the right side along with the numbness sensation on the right neck which has slightly improved. She relates that on presentation she thought her throat was swelling and she has a strong gag reflex but states that this was confirmed she did not have any swelling. She denies having any vomiting or diarrhea. She now has a cough which is new. She denies dysuria. On 11/13/2017 was having some improvement but is now had a significant worsening of her headache and neck pain. As noted injection therapy would be ideal but with her anticoagulation is not an option at this time. She was having some improvement but is again had some regression. Objective - Vital Signs Vital signs: Vital Signs Temp 97.9 F 11/13/17 19:26 Pulse 67 11/13/17 19:26 Resp 15 11/13/17 20:00 BP 128/66 11/13/17 19:26 Pulse Ox 96 11/13/17 19:26 Intake & Output 11/13/17 11/13/17 11/14/17 06:59 18:59 06:59 Intake Total 350 Balance 350 Intake: Oral 350 Other: Voiding Method Toilet Toilet Toilet # Voids 1 - Exam Gen: This is a 37-year-old female patient. She is in bed with tidal over her eyes. She complains of photophobia. HEENT: Head is atraumatic, normocephalic. Pupils equal, round. Sclerae is anicteric. Oral mucous membranes are moist. No thrush noted. Oropharynx is without significant redness or erythema. She is some mild tenderness to the right occipital area with radiation and goes down into her neck. NECK: Supple. No JVD. No lymphadenopathy. No thyromegaly. LUNGS: Clear to auscultation. No wheezes or rhonchi. No intercostal retractions. HEART: Regular rate and rhythm. No murmur. ABDOMEN: Soft. Bowel sounds are present. No masses. No tenderness. EXTREMITIES: No pedal edema. No calf tenderness. Dorsalis pedis +2 bilaterally. NEUROLOGICAL: Patient is awake, alert and oriented x3 - Labs CBC & Chem 7: 11/12/17 06:51 11/12/17 06:51 Labs: Abnormal Lab Results - Last 24 Hours (Table) 11/12/17 11/13/17 11/13/17 Range/Units 23:34 06:30 16:09 POC Glucose (mg/dL) 129 H 125 H 120 H (75-99) mg/dL Microbiology - Last 24 Hours (Table) 11/12/17 12:05 Blood Culture - Preliminary Blood No Growth after 24 hours Laboratory Results WBC 20.0 k/uL (3.8-10.6) H 11/12/17 06:51 RBC 4.49 m/uL (3.80-5.40) 11/12/17 06:51 Hgb 13.9 gm/dL (11.4-16.0) 11/12/17 06:51 Hct 41.0 % (34.0-46.0) 11/12/17 06:51 MCV 91.2 fL (80.0-100.0) 11/12/17 06:51 MCH 30.8 pg (25.0-35.0) 11/12/17 06:51 MCHC 33.8 g/dL (31.0-37.0) 11/12/17 06:51 RDW 13.0 % (11.5-15.5) 11/12/17 06:51 Plt Count 250 k/uL (150-450) 11/12/17 06:51 Neutrophils % 94 % 11/12/17 06:51 Lymphocytes % 5 % 11/12/17 06:51 Monocytes % 2 % 11/12/17 06:51 Eosinophils % 0 % 11/12/17 06:51 Basophils % 0 % 11/12/17 06:51 Neutrophils # 18.7 k/uL (1.3-7.7) H 11/12/17 06:51 Lymphocytes # 0.9 k/uL (1.0-4.8) L 11/12/17 06:51 Monocytes # 0.3 k/uL (0-1.0) 11/12/17 06:51 Eosinophils # 0.0 k/uL (0-0.7) 11/12/17 06:51 Basophils # 0.0 k/uL (0-0.2) 11/12/17 06:51 PT 9.5 sec (9.0-12.0) 11/10/17 22:23 INR 1.0 (<1.2) 11/10/17 22:23 APTT 23.0 sec (22.0-30.0) 11/10/17 22:23 Sodium 140 mmol/L (137-145) 11/12/17 06:51 Potassium 4.1 mmol/L (3.5-5.1) 11/12/17 06:51 Chloride 109 mmol/L (98-107) H 11/12/17 06:51 Carbon Dioxide 21 mmol/L (22-30) L 11/12/17 06:51 Anion Gap 10 mmol/L 11/12/17 06:51 BUN 12 mg/dL (7-17) 11/12/17 06:51 Creatinine 0.53 mg/dL (0.52-1.04) 11/12/17 06:51 Est GFR (MDRD) Af Amer >60 (>60 ml/min/1.73 sqM) 11/12/17 06:51 Est GFR (MDRD) Non-Af >60 (>60 ml/min/1.73 sqM) 11/12/17 06:51 Glucose 135 mg/dL (74-99) H 11/12/17 06:51 POC Glucose (mg/dL) 120 mg/dL (75-99) H 11/13/17 16:09 POC Glu Switch Coupler ID Victorina Dey 11/13/17 16:09 Calcium 9.2 mg/dL (8.4-10.2) 11/12/17 06:51 Phosphorus 3.7 mg/dL (2.5-4.5) 11/12/17 06:51 Magnesium 1.9 mg/dL (1.6-2.3) 11/12/17 06:51 Troponin I <0.012 ng/mL (0.000-0.034) 11/10/17 22:23 Urine Color Yellow 11/10/17 22:23 Urine Appearance Cloudy (Clear) H 11/10/17 22:23 Urine pH 6.5 (5.0-8.0) 11/10/17 22:23 Ur Specific [place] 1.009 (1.001-1.035) 11/10/17 22:23 Urine Protein Negative (Negative) 11/10/17 22:23 Urine Glucose (UA) Negative (Negative) 11/10/17 22: Urine Ketones Negative (Negative) 11/10/17 22:23 Urine Blood Negative (Negative) 11/10/17 22: Urine Nitrite Negative (Negative) 11/10/17 22:23 Urine Bilirubin Negative (Negative) 11/10/17 22: Urine Urobilinogen <2.0 mg/dL (<2.0) 11/10/17 22:23 Ur Leukocyte Esterase Negative (Negative) 11/10/17 22:23 Urine RBC 1 /hpf (0-5) 11/10/17 22:23 Urine WBC 4 /hpf (0-5) 11/10/17 22:23 Ur Squamous Epith Cells 6 /hpf (0-4) H 11/10/17 22:23 Urine Bacteria Rare /hpf (None) H 11/10/17 22:23 Influenza Type A RNA Not Detected (Not Detectd) 11/12/17 19:00 Influenza Type B (PCR) Not Detected (Not Detectd) 11/12/17 19:00 Microbiology 11/12/17 12:05 Blood Blood Culture - Preliminary No Growth after 24 hours - Imaging and Cardiology MRI - abdomen: report reviewed (No evidence of any acute abnormality ) Assessment and Plan (1) Occipital neuritis Narrative/Plan: This is a 37-year-old female who presented to the hospital with symptoms of numbness to her right cheek and neck, occipital pain and migraine headache. Fioricet will be added for headache. She presented with a white count of 11 and following dexamethasone and Solu-Medrol her white count is now at 20. There does not appear to be any signs of infection. Most likely leukocytosis is secondary to steroids. No need for antibiotics at this point. We'll attempt to add topical lidocaine via patch to the back of the neck to see if we can impact her severe pain. Remains with no evidence of infection. Current Visit: Yes Status: Acute Code(s): M54.81 - OCCIPITAL NEURALGIA SNOMED Code(s): 19185442
[2017-11-14] MEDS: KETOROLAC 30 MG/ML 1 ML VIAL IVP SCH ×3 (00:02→11:57)
[2017-11-14] MEDS: HYDROcodone/APAP 5-325MG 1 EACH TAB PO PRN ×2 (04:27→15:01)
[2017-11-14] MEDS: busPIRone HCl 5 MG TAB PO PRN (06:06)
[2017-11-14] MEDS: BUTA/APAP/CAF/COD 50-325-40-30 CAP PO PRN (09:04)
[2017-11-14] MEDS: FAMOTIDINE 20 MG TAB PO SCH (09:04)
[2017-11-14] MEDS: LIDOCAINE 5% PATCH TOPICAL SCH (09:05)
[2017-11-14] MEDS: PROCHLORPERAZINE 10 MG TAB PO PRN (09:24)
[2017-11-14 12:20] VITALS: BP 111/71; PULSE 63; RESP 18; TEMP 98.3
[2017-11-14 14:47] LABS: Basophils % (A) 0 %; Eosinophils % (A) 0 %; HGB 13.4 gm/dL (11.4-16.0); Lymphocytes % (A) 27 %; MCHC 32.7 g/dL (31.0-37.0); MCV 91.9 fL (80.0-100.0); Mean Platelet Volume 7.4; Monocytes # (A) 0.9 k/uL (0-1.0); Monocytes % (A) 8 %; Neutrophils % (A) 63 %; Platelet Count 209 k/uL (150-450); RBC 4.46 m/uL (3.80-5.40); RDW 12.9 % (11.5-15.5); WBC 11.1 k/uL (3.8-10.6)
--- NOTE | 2017-11-14 23:27 | P.PN ---
Subjective Progress Note Date: 11/13/17 Principal diagnosis: Occipital neuralgia Patient is a 37-year-old female admitted to the hospital with decreased sensation over the right cheek and right lateral neck. Patient also having headache and right lateral neck pain. Patient denies any trauma. Patient denies vision changes, facial droop, confusion, speech problems, changes in taste, tongue numbness, focal weakness, numbness in arms or legs, chest pain, shortness of breath, fevers, chills. Patient notes she had nasal congestion and rhinorrhea and cough last week, however that since resolved. Patient denies pain in the ear or changes in hearing. Patient is a current smoker. Denies high blood pressure, high cholesterol, diabetes, history of stroke, family history of early strokes. Patient states she began feeling the decreased sensation in her right cheek yesterday, however today it is progressively worsening, radiating to right lateral neck. Patient denies changes in sensation in the forehead. Denies weakness in the forehead. Patient notes she thought her face was becoming swollen. States "it feels numb like when you go to the dentist". On 11/13/2017 Patient is still having intractable neck pain and headache. Mainly in the occipital area. MRI is negative. ID records no antivirals at this time. Otherwise patient still having photophobia and sensitivity. Patient is being continued on muscle relaxants are round and Fioricet. No commerce of chest pain or shortness of breath. No fever no chills. No leukocytosis. Patient is unable to open her eyes due to photosensitivity. Current medications reviewed Objective - Vital Signs Vital signs: Vital Signs Temp 98.4 F 11/13/17 08:00 Pulse 75 11/13/17 08:00 Resp 16 11/13/17 08:00 BP 119/69 11/13/17 08:00 Pulse Ox 94 L 11/13/17 08:00 Intake & Output 11/12/17 11/13/17 11/13/17 18:59 06:59 18:59 Intake Total 360 Balance 360 Intake: Oral 360 Other: Voiding Method Toilet Toilet Toilet - Exam PHYSICAL EXAMINATION: Patient is lying in the bed comfortably, mild distress distress, awake alert and oriented.. HEENT: Normocephalic. Neck is supple. Pupils reactive. Nostrils clear. Oral cavity is moist. Ears reveal no drainage. Patient does have photosensitivity Neck reveals no JVD, carotid bruits, or thyromegaly. CHEST EXAMINATION: Trachea is central. Symmetrical expansion. Lung mcgill clear to auscultation and percussion. CARDIAC: Normal S1, S2 with no gallops. No murmurs ABDOMEN: Soft. Bowel sounds normal. No organomegaly. No abdominal bruits. Extremities: reveal no edema. No clubbing or cyanosis Neurologically awake, alert, oriented x3 with well-coordinated movements. No focal deficits noted Skin: No rash or skin lesions. Psychiatric: Coperative. Nonsuicidal Musculoskeletal: No joint swelling or deformity. Normal range of motion. - Labs CBC & Chem 7: 11/14/17 14:15 11/12/17 06:51 Labs: Abnormal Lab Results - Last 24 Hours (Table) 11/12/17 11/12/17 11/13/17 Range/Units 15:56 23:34 06:30 POC Glucose (mg/dL) 142 H 129 H 125 H (75-99) mg/dL Assessment and Plan Assessment: Occipital neuritis and neck pain Right upper shoulder numbness likely radicular per thick due to recent chiropractic manipulation of the neck Headache intractable. Unlikely meningitis no signs of infection History of migraine headaches Plan: Patient is still having headache today and photosensitivity. Continued on pain medications including Fioricet and Flexeril and Toradol. Patient is also on lidocaine patch Patient was seen by neurology and ID. As per neurology evaluation, given her history of symptoms started after chiropractic manipulation of the cervical spine. She probably experiencing some acute inflammatory response to that giving her radicular type symptoms.Her CTA of the head and neck was negative. MRI of the cervical spine was unremarkable. Time with Patient: Greater than 30
--- NOTE | 2017-11-14 23:31 | P.DS ---
Providers Date of admission: 11/12/17 14:44 Expected date of discharge: 11/14/17 Attending physician: Hernando Boewr Consults: 11/11/17 00:27 Consult Physician Routine Consulting Provider: Malika Gerard Consult Reason/Comments: R face numbness Do you want consulting provider notified?: Yes, Notify in am 11/12/17 11:32 Consult Physician Urgent Consulting Provider: Ritesh Rodas Consult Reason/Comments: leukocytosis Do you want consulting provider notified?: Yes Primary care physician: Stated None Hospital Course: Discharge diagnosis Occipital neuritis and neck pain Right upper shoulder numbness likely radiculopathic due to recent chiropractic manipulation of the neck Headache intractable. Unlikely meningitis no signs of infection. No neck rigidity History of migraine headaches Patient is a 37-year-old female admitted to the hospital with decreased sensation over the right cheek and right lateral neck. Patient also having headache and right lateral neck pain. Patient denies any trauma. Patient denies vision changes, facial droop, confusion, speech problems, changes in taste, tongue numbness, focal weakness, numbness in arms or legs, chest pain, shortness of breath, fevers, chills. Patient notes she had nasal congestion and rhinorrhea and cough last week, however that since resolved. Patient denies pain in the ear or changes in hearing. Patient is a current smoker. Denies high blood pressure, high cholesterol, diabetes, history of stroke, family history of early strokes. Patient states she began feeling the decreased sensation in her right cheek yesterday, however today it is progressively worsening, radiating to right lateral neck. Patient denies changes in sensation in the forehead. Denies weakness in the forehead. Patient notes she thought her face was becoming swollen. States "it feels numb like when you go to the dentist". On 11/13/2017 Patient is still having intractable neck pain and headache. Mainly in the occipital area. MRI is negative. ID records no antivirals at this time. Otherwise patient still having photophobia and sensitivity. Patient is being continued on muscle relaxants are round and Fioricet. No commerce of chest pain or shortness of breath. No fever no chills. No leukocytosis. Patient is unable to open her eyes due to photosensitivity. 11/14/2017 Neck pain and numbness slightly improved. Otherwise patient is able to see with sunglasses on. Neurology and ID recommends no further intervention. Otherwise patient is stable to be discharged home. Continued on pain medications including Fioricet and Flexeril and Toradol. Patient is also on lidocaine patch Patient was seen by neurology and ID. As per neurology evaluation, given her history of symptoms started after chiropractic manipulation of the cervical spine. She probably experiencing some acute inflammatory response to that giving her radicular type symptoms.Her CTA of the head and neck was negative. MRI of the cervical spine was unremarkable. Patient was recommended to follow with neurology clinic for possible occipital O block. Discharge physical examination was done Vital Signs 11/10/17 11/10/17 11/11/17 21:25 23:40 00:45 Temperature 98.1 F 98.1 F Pulse Rate 101 H 96 80 Pulse Rate [ Bilateral Dorsalis Pedis] Pulse Rate [ Pulse Oximetery ] Pulse Rate [ Radial] Respiratory 18 20 18 Rate Blood Pressure 124/78 134/91 137/87 Blood Pressure [Right Arm] O2 Sat by Pulse 99 96 96 Oximetry 11/11/17 11/11/17 11/11/17 01:16 01:30 06:20 Temperature 98.2 F Pulse Rate Pulse Rate [ Bilateral Dorsalis Pedis] Pulse Rate [ 74 74 Pulse Oximetery ] Pulse Rate [ Radial] Respiratory 16 16 Rate Blood Pressure Blood Pressure 121/80 118/66 [Right Arm] O2 Sat by Pulse 97 Oximetry 11/11/17 11/11/17 11/11/17 07:36 08:00 11:36 Temperature 98.3 F 98.1 F Pulse Rate Pulse Rate [ Bilateral Dorsalis Pedis] Pulse Rate [ 73 99 Pulse Oximetery ] Pulse Rate [ Radial] Respiratory 16 16 16 Rate Blood Pressure Blood Pressure 116/75 119/74 [Right Arm] O2 Sat by Pulse 92 L 92 L Oximetry 11/11/17 11/11/17 11/11/17 12:00 16:00 20:00 Temperature 98 F Pulse Rate Pulse Rate [ Bilateral Dorsalis Pedis] Pulse Rate [ 76 Pulse Oximetery ] Pulse Rate [ Radial] Respiratory 16 16 16 Rate Blood Pressure Blood Pressure 128/85 [Right Arm] O2 Sat by Pulse 95 Oximetry 11/11/17 11/12/17 11/12/17 23:52 00:00 04:00 Temperature 98.4 F Pulse Rate Pulse Rate [ Bilateral Dorsalis Pedis] Pulse Rate [ 93 Pulse Oximetery ] Pulse Rate [ Radial] Respiratory 16 16 16 Rate Blood Pressure Blood Pressure 126/77 [Right Arm] O2 Sat by Pulse 92 L Oximetry 11/12/17 11/12/17 11/12/17 07:56 15:44 19:40 Temperature 97.9 F 98.6 F 98.3 F Pulse Rate Pulse Rate [ Bilateral Dorsalis Pedis] Pulse Rate [ 75 67 Pulse Oximetery ] Pulse Rate [ 85 Radial] Respiratory 16 18 16 Rate Blood Pressure Blood Pressure 115/65 118/76 117/65 [Right Arm] O2 Sat by Pulse 93 L 96 94 L Oximetry 11/12/17 11/12/17 11/13/17 20:00 23:47 00:00 Temperature 98.4 F Pulse Rate Pulse Rate [ Bilateral Dorsalis Pedis] Pulse Rate [ 78 Pulse Oximetery ] Pulse Rate [ Radial] Respiratory 16 16 16 Rate Blood Pressure Blood Pressure 119/71 [Right Arm] O2 Sat by Pulse 93 L Oximetry 11/13/17 11/13/17 11/13/17 04:00 08:00 16:00 Temperature 98.4 F 98.3 F Pulse Rate Pulse Rate [ Bilateral Dorsalis Pedis] Pulse Rate [ 75 65 Pulse Oximetery ] Pulse Rate [ Radial] Respiratory 16 16 16 Rate Blood Pressure Blood Pressure 119/69 111/67 [Right Arm] O2 Sat by Pulse 94 L 96 Oximetry 11/13/17 11/13/17 11/13/17 19:26 20:00 23:24 Temperature 97.9 F 97.9 F Pulse Rate Pulse Rate [ 72 Bilateral Dorsalis Pedis] Pulse Rate [ Pulse Oximetery ] Pulse Rate [ 67 Radial] Respiratory 15 15 15 Rate Blood Pressure Blood Pressure 128/66 96/64 [Right Arm] O2 Sat by Pulse 96 100 Oximetry 11/14/17 11/14/17 11/14/17 00:00 03:34 08:00 Temperature 98.1 F Pulse Rate Pulse Rate [ Bilateral Dorsalis Pedis] Pulse Rate [ 52 L Pulse Oximetery ] Pulse Rate [ Radial] Respiratory 15 18 16 Rate Blood Pressure Blood Pressure 107/68 [Right Arm] O2 Sat by Pulse 97 Oximetry 11/14/17 12:00 Temperature 98.3 F Pulse Rate Pulse Rate [ Bilateral Dorsalis Pedis] Pulse Rate [ 63 Pulse Oximetery ] Pulse Rate [ Radial] Respiratory 18 Rate Blood Pressure Blood Pressure 111/71 [Right Arm] O2 Sat by Pulse 95 Oximetry Patient Condition at Discharge: Good Plan - Discharge Summary New Discharge Prescriptions: New Buta/APAP/Caf/Cod 03-615-92-30 [Fioricet w/Cod 79-633-08-30MG] 1 each PO Q6HR PRN #20 cap PRN Reason: Migraine Headache HYDROcodone/APAP 5-325MG [[place] 5-325] 1 each PO Q6HR PRN #20 tab PRN Reason: Pain Lidocaine 5% Patch [Lidoderm 5% Patch] 2 patch TOPICAL DAILY #15 patch Continue Ibuprofen [Motrin] 600 mg PO Q6HR PRN #20 tab PRN Reason: Pain Discontinued Methocarbamol [Robaxin] 500 mg PO ONCE PRN PRN Reason: Muscle Pain Discharge Medication List Ibuprofen [Motrin] 600 mg PO Q6HR PRN #20 tab 08/17/17 [Rx] Buta/APAP/Caf/Cod [id number] [Fioricet w/Cod 85-883-55-30MG] 1 each PO Q6HR PRN #20 cap 11/14/17 [Rx] HYDROcodone/APAP 5-325MG [[place] 5-325] 1 each PO Q6HR PRN #20 tab 11/14/17 [Rx] Lidocaine 5% Patch [Lidoderm 5% Patch] 2 patch TOPICAL DAILY #15 patch 11/14/17 [Rx] Follow up Appointment(s)/Referral(s): None,Stated [Primary Care Provider] - 1-2 days Puma Lamas PAC [PHYSICIAN LOCOMOTIVE REPA[employer]ER [employer]] - 1 Week (Office will call with an appointment for GONNadia) Patient Instructions/Handouts: Acute Headache (DC) Discharge Disposition: HOME SELF-CARE
== END 2017-11-14 17:11 | disposition home or self-care (01) ==
LOC: EC 21:13 → 3OBS 11-11 00:30 → OBSVTOIN 11-12 14:44 → INTOOBSV 11-12 14:44 → UNDODISIN 11-14 15:42
PROVIDERS: ADMIT Internal Medicine; ATTEND Internal Medicine
DX: M54.81 Occipital neuralgia (principal); D72.829 Elevated white blood cell count, unspecified; M50.10 Cervical disc disorder with radiculopathy, unspecified cervical region; F17.200 Nicotine dependence, unspecified, uncomplicated; G43.909 Migraine, unspecified, not intractable, without status migrainosus; J45.909 Unspecified asthma, uncomplicated; T38.0X5A Adverse effect of glucocorticoids and synthetic analogues, initial encounter; F32.9 Major depressive disorder, single episode, unspecified; F41.9 Anxiety disorder, unspecified; R20.0 Anesthesia of skin; M54.5 Low back pain; Z87.442 Personal history of urinary calculi; Z90.49 Acquired absence of other specified parts of digestive tract; Z82.49 Family history of ischemic heart disease and other diseases of the circulatory system
CPT/HCPCS: 96375 ×5; 96376 ×4; 96361; 96374; 99285; 36415; 93005; 80048 ×2; 83735; 84100; 84484; 85025 ×3; 85610; 85730; 81001; 87040; 87502; 70030; 70496; 70498; 70553; 72156; G0378 ×5; S0183 ×3; J2060; J1200; J1100 ×2; J2765; J2930 ×3; Q9967; J2405; J1885 ×4; A9581 ×2

== ENCOUNTER 2017-11-18 12:04 | Emergency (ER) | payer OTHER ==
[2017-11-18] MEDS ORDERED: KETOROLAC 60 MG/2 ML VIAL IVP STA (12:34)
[2017-11-18] MEDS ORDERED: diphenhydrAMINE 50 MG/ML 1 ML VIAL IVP STA (12:34)
[2017-11-18] MEDS ORDERED: PROMETHAZINE INJ 25 MG/ML 1 ML VIAL IVPB STA (12:34)
[2017-11-18] MEDS ORDERED: PROMETHAZINE INJ 25 MG in SODIUM CHLORIDE 0.9% 50 ML IVPB STA (12:35)
--- NOTE | 2017-11-18 12:40 | ED ---
General Adult HPI - General Chief complaint: Headache Stated complaint: Migraine Time Seen by Provider: 11/18/17 12:10 Source: patient, RN notes reviewed Mode of arrival: ambulatory Limitations: no limitations - History of Present Illness Initial comments: This is a 37-year-old female presents emergency Department with a headache. Patient states she was admitted to the hospital recently for some arm tingling as well as some right-sided facial tingling. Patient states she was discharged from the hospital 3 days ago and since she's been in the hospital she's had a migraine headache. Patient states she was sent home with some Hug[place] and Fioricet and those don't help her headache at all. Patient states since taking those she has been constipated. Patient denies any new symptoms. Patient states headache is generalized and she is sensitive to light and sound. Patient states she is nauseated but hasn't vomited. Patient denies any fever or chills. Patient denies any new numbness or weakness. Patient denies abdominal pain patient denies chest pain patient denies difficulty breathing or shortness of breath. - Related Data Home Medications Medication Instructions Recorded Confirmed Buta/APAP/Caf/Cod [id number] 1 cap PO Q6HR PRN 11/18/17 11/18/17 [Fioricet w/Cod 95-404-66-30MG] HYDROcodone/APAP 5-325MG [[place] 1 tab PO Q6HR PRN 11/18/17 11/18/17 5-325] Previous Rx's Medication Instructions Recorded Butalb/APAP/Caff 50-325-40Mg 1 tab PO Q6H PRN #10 tablet 11/18/17 [Fioricet 50-325-40] Metoclopramide [Reglan] 10 mg PO Q8H PRN #10 tab 11/18/17 Allergies Allergy/AdvReac Type Severity Reaction Status Date / Time No Known Allergies Allergy Verified 11/18/17 12:35 Review of Systems ROS Statement: Those systems with pertinent positive or pertinent negative responses have been documented in the HPI. ROS Other: All systems not noted in ROS Statement are negative. Past Medical History Past Medical History: Asthma Additional Past Medical History / Comment(s): MIGRAINES, kidney stones, ovarian cysts History of Any Multi-Drug Resistant Organisms: None Reported Past Surgical History: Appendectomy, Section, Tubal Ligation Additional Past Surgical History / Comment(s): cyst on left wrist removed Past Anesthesia/Blood Transfusion Reactions: No Reported Reaction Past Psychological History: Anxiety, Depression Smoking Status: Former smoker Past Alcohol Use History: Occasional Past Drug Use History: None Reported - Past Family History Mother Family Medical History: Cancer Additional Family Medical History / Comment(s): breast Father Family Medical History: Congestive Heart Failure (CHF) Additional Family Medical History / Comment(s): strokes muliple pt unsure at what age, pacer General Exam - General Exam Comments Initial Comments: GENERAL: Patient is well-developed and well-nourished. Patient is nontoxic and well- hydrated and is in mild distress. ENT: Neck is soft and supple. No significant lymphadenopathy is noted. Oropharynx is clear. Moist mucous membranes. Neck has full range of motion without eliciting any pain. EYES: The sclera were anicteric and conjunctiva were pink and moist. Extraocular movements were intact and pupils were equal round and reactive to light. Eyelids were unremarkable. PULMONARY: Unlabored respirations. Good breath sounds bilaterally. No audible rales rhonchi or wheezing was noted. CARDIOVASCULAR: There is a regular rate and rhythm without any murmurs gallops or rubs. ABDOMEN: Soft and nontender with normal bowel sounds. No palpable organomegaly was noted. There is no palpable pulsatile mass. SKIN: Skin is clear with no lesions or rashes and otherwise unremarkable. NEUROLOGIC: Patient is alert and oriented x3. Cranial nerves II through XII are grossly intact. Motor and sensory are also intact. Normal speech, volume and content. Symmetrical smile. MUSCULOSKELETAL: Normal extremities with adequate strength and full range of motion. LYMPHATICS: No significant lymphadenopathy is noted PSYCHIATRIC: Normal psychiatric evaluation. Limitations: no limitations Course Vital Signs 11/18/17 11/18/17 11/18/17 12:10 13:40 15:20 Temperature 98.6 F 97 F L Pulse Rate 86 70 60 Respiratory 16 18 20 Rate Blood Pressure 104/65 118/70 95/50 O2 Sat by Pulse 97 99 100 Oximetry Disposition Clinical Impression: Headache Disposition: HOME SELF-CARE Prescriptions: Butalb/APAP/Caff 50-325-40Mg [Fioricet 50-325-40] 1 tab PO Q6H PRN #10 tablet PRN Reason: Pain Metoclopramide [Reglan] 10 mg PO Q8H PRN #10 tab PRN Reason: Nausea Referrals: Jovanni Olson MD [Primary Care Provider] - 1-2 days Time of Disposition: 20:45
[2017-11-18] MEDS ORDERED: SODIUM CHLORIDE 0.9% 1,000 ML IV ONE (12:44)
[2017-11-18] MEDS ORDERED: methylPREDNISolone SOD SUCCI 125 MG/2 ML VIAL IV STA (13:34)
[2017-11-18] MEDS ORDERED: MAGNESIUM SULFATE-D5W PMX 1 GM in DEXTROSE/WATER 1 100ML.BAG IVPB ONE (13:34)
[2017-11-18 13:41] VITALS: TEMP 97
[2017-11-18 15:22] VITALS: BP 95/50; PULSE 60; RESP 20
== END 2017-11-18 15:22 | disposition home or self-care (01) ==
LOC: EC 12:04
DX: R51 Headache (principal); Z87.891 Personal history of nicotine dependence; Z53.8 Procedure and treatment not carried out for other reasons
CPT/HCPCS: 99283; 96365; 96375 ×4; 96361; J1200; J2550; J2930; J1885; J3475

== ENCOUNTER 2018-12-08 19:53 | Emergency (ER) | payer OTHER ==
[2018-12-08 20:14] VITALS: BP 111/73; PULSE 74; RESP 18; TEMP 97.7
[2018-12-08] MEDS ORDERED: KETOROLAC 60 MG/2 ML VIAL IM STA (20:58)
[2018-12-08] MEDS ORDERED: ACET/COD 300 MG/30 MG STARTER PACK 6 TAB BTL PO STA (20:58)
[2018-12-08] MEDS ORDERED: CYCLOBENZAPRINE 10MG STARTER 3 TAB BTL PO STA (20:58)
[2018-12-08] MEDS ORDERED: methylPREDNISolone SOD SUCCI 125 MG/2 ML VIAL IM ONE (20:58)
--- NOTE | 2018-12-08 21:48 | XR ---
PROCEDURE: XR lumbar spine - 3V DATE AND TIME: 12/08/2018 9:32 PM CLINICAL INDICATION: Pain,sudden onset for 2 days TECHNIQUE: AP and lateral views COMPARISON: 08/17/1970 FINDINGS: There is no fracture or malalignment. No focal skeletal lesions. The soft tissues are unrem arkable. IMPRESSION: NO ACUTE PROCESS.
--- NOTE | 2018-12-08 22:01 | ED ---
Back Pain HPI - General Source: patient, RN notes reviewed, old records reviewed Limitations: no limitations <Blanca Ames - Last Filed: 12/08/18 22:59> <Meg Jones - Last Filed: 12/09/18 06:06> - General Chief Complaint: Back Pain/Injury Stated Complaint: back & leg pain/ cough Time Seen by Provider: 12/08/18 20:15 - History of Present Illness Initial Comments: Patient is a 38-year-old female with chief complaint of lower back pain. Symptoms started yesterday evening. Worse with movement. Patient states the pain radiates down her right leg. She denies saddle anesthesias. No falls or trauma. She denies any chest pain, short of breath, abdominal pain. She denies any changes in urination. She denies saddle anesthesias. (Blanca Ames) - Related Data Home Medications Medication Instructions Recorded Confirmed Buta/APAP/Caf/Cod [id number] 1 cap PO Q6HR PRN 11/18/17 11/18/17 [Fioricet w/Cod 45-212-69-30MG] HYDROcodone/APAP 5-325MG [[place] 1 tab PO Q6HR PRN 11/18/17 11/18/17 5-325] Previous Rx's Medication Instructions Recorded Butalb/APAP/Caff 50-325-40Mg 1 tab PO Q6H PRN #10 tablet 11/18/17 [Fioricet 50-325-40] Metoclopramide [Reglan] 10 mg PO Q8H PRN #10 tab 11/18/17 Acetaminophen with Codeine 1 tab PO Q6H PRN 3 Days #12 tab 12/08/18 [Tylenol w/codeine #3] Cyclobenzaprine [Flexeril] 10 mg PO TID #12 tab 12/08/18 Dexamethasone 0.75 mg PO DAILY #12 tab 12/08/18 Allergies Allergy/AdvReac Type Severity Reaction Status Date / Time No Known Allergies Allergy Verified 12/08/18 20:14 Review of Systems ROS Other: All systems not noted in ROS Statement are negative. <Blanca Ames - Last Filed: 12/08/18 22:59> ROS Other: All systems not noted in ROS Statement are negative. <Meg Jones - Last Filed: 12/09/18 06:06> ROS Statement: Those systems with pertinent positive or pertinent negative responses have been documented in the HPI. Past Medical History Past Medical History: Asthma Additional Past Medical History / Comment(s): MIGRAINES, kidney stones, ovarian cysts History of Any Multi-Drug Resistant Organisms: None Reported Past Surgical History: Appendectomy, Section, Tubal Ligation Additional Past Surgical History / Comment(s): cyst on left wrist removed Past Anesthesia/Blood Transfusion Reactions: No Reported Reaction Past Psychological History: Anxiety, Depression Smoking Status: Current every day smoker Past Alcohol Use History: Rare Past Drug Use History: None Reported - Past Family History Mother Family Medical History: Cancer Additional Family Medical History / Comment(s): breast Father Family Medical History: Congestive Heart Failure (CHF) Additional Family Medical History / Comment(s): strokes muliple pt unsure at what age, pacer <Blanca Ames - Last Filed: 12/08/18 22:59> General Exam Limitations: no limitations <Blanca Ames - Last Filed: 12/08/18 22:59> - General Exam Comments Initial Comments: 38-year-old female. Alert and oriented. No distress. Patient is in moderate discomfort. General: Well appearing, well nourished, in no distress. Oriented x 3, normal mood and affect . Ambulating without difficulty. Skin: Good turgor, no rash, unusual bruising or prominent lesions Hair: Normal texture and distribution. HEENT: Head: Normocephalic, atraumatic, no visible or palpable masses, depressions, or scaring. Eyes: Visual acuity intact, conjunctiva clear, sclera non-icteric, EOM intact, PERRL. Ears: EACs clear, TMs translucent & cone of light visualized. hearing intact. Nose: No external lesions, mucosa non-inflamed, septum and turbinates normal Mouth: Mucous membranes moist, no mucosal lesions. Teeth/Gums: No obvious caries or periodontal disease. No gingival inflammation or significant resorption. Pharynx: Mucosa non-inflamed, no tonsillar hypertrophy or exudate Neck: Supple, without lesions, bruits, or adenopathy, thyroid non-enlarged and non-tender Heart: No cardiomegaly or thrills; regular rate and rhythm, no murmur or gallop Lungs: Clear to auscultation and percussion Abdomen: Bowel sounds normal, no tenderness, organomegaly, masses, or hernia Back: Spine normal without deformity or tenderness, left paraspinal lumbar tenderness and right paraspinal lumbar tenderness noted. Extremities: No amputations or deformities, cyanosis, edema or varicosities, peripheral pulses intact Musculoskeletal: Normal gait and station. No misalignment, asymmetry, crepitation, defects, tenderness, masses, effusions, decreased range of motion, instability, atrophy or abnormal strength or tone in the head, neck, spine, ribs, pelvis or extremities. Neurologic: CN 2-12 normal. Sensation to pain, touch, and proprioception normal. DTRs normal in upper and lower extremities. No pathologic reflexes. Psychiatric: Oriented X3, intact recent and remote memory, judgment and insight, normal mood and affect. (Blanca Ames) Course Vital Signs 12/08/18 20:11 Temperature 97.7 F Pulse Rate 74 Respiratory 18 Rate Blood Pressure 111/73 O2 Sat by Pulse 98 Oximetry Medical Decision Making - Radiology Data Radiology results: report reviewed <Blanca Ames - Last Filed: 12/08/18 22:59> <Meg Jones - Last Filed: 12/09/18 06:06> - Medical Decision Making This is a 38-year-old female presents emergency room today with acute lower back pain radiating down her leg. Discussed that her. The symptoms feel like a spasm within her buttocks. Discussed possibility piriformis syndrome. Patient has been advised to apply warm compresses over her back. She was given IM Toradol with some relief of her pain. We'll discharge the Patient with a short course of steroids muscle relaxer and short course of pain medicine. Opiates start talking from completed. X-ray of her lumbar spine was negative for any acute process. Patient's are answered and return parameters were discussed. (Blanca Ames) I was available for consultation in the emergency department. The history and physical exam were done by the midlevel provider. I was consulted for this patient's care. I reviewed the case with the midlevel provider and based on their presentation of the patient, I agree with the assessment, medical decision making and plan of care as documented. (Meg Jones) - Radiology Data Normal lumbar spine x-ray. (Blanca Ames) Disposition Is patient prescribed a controlled substance at d/c from ED?: Yes If prescribed controlled substance>3 days was MAPS reviewed?: Prescribed <3 Days If opioid is for acute pain is fill amount 7 days or less?: Yes If Rx opioid, was Start Talking consent form obtained?: Yes Time of Disposition: 21:58 <Blanca Ames - Last Filed: 12/08/18 22:59> <Meg Jones - Last Filed: 12/09/18 06:06> Clinical Impression: Sciatica, Lower back pain Disposition: HOME SELF-CARE Condition: Good Instructions (If sedation given, give patient instructions): Acute Low Back Pain (ED), Lower Back Exercises (ED) Additional Instructions: Patient advised of close follow-up with primary care physician. Patient advised to apply warm compresses over her back. Patient should do lower back stretching. If there is any loss of control of her urination please return to the ED for reevaluation. Return to emergency department if any alarming signs or symptoms occur. Prescriptions: Dexamethasone 0.75 mg PO DAILY #12 tab Cyclobenzaprine [Flexeril] 10 mg PO TID #12 tab Acetaminophen with Codeine [Tylenol w/codeine #3] 1 tab PO Q6H PRN 3 Days #12 tab PRN Reason: Pain Referrals: Claribel Esquivel MD [STAFF PHYSICIAN] - 1-2 days
== END 2018-12-08 22:12 | disposition home or self-care (01) ==
LOC: EC 19:53
DX: M54.41 Lumbago with sciatica, right side (principal); F17.200 Nicotine dependence, unspecified, uncomplicated
CPT/HCPCS: 72100; 99284; 96372 ×2; J2930; J1885

== ENCOUNTER 2019-06-01 18:52 | Emergency (ER) | payer OTHER ==
[2019-06-01 18:56] VITALS: RESP 18; TEMP 98.6
[2019-06-01] MEDS ORDERED: HYDROmorphone 1 MG/ML 1 ML SYRINGE IVP STA (19:54)
[2019-06-01] MEDS ORDERED: ONDANSETRON 4 MG/2 ML VIAL IVP STA (19:54)
[2019-06-01] MEDS ORDERED: SODIUM CHLORIDE 0.9% 1,000 ML IV STA (19:54)
[2019-06-01 20:05] LABS: Basophils # (A) 0.1 k/uL (0-0.2); Basophils % (A) 1 %; Eosinophils # (A) 0.2 k/uL (0-0.7); Eosinophils % (A) 2 %; HCT 47.5 % (34.0-46.0); HGB 15.9 gm/dL (11.4-16.0); Lymphocytes # (A) 2.1 k/uL (1.0-4.8); Lymphocytes % (A) 18 %; MCH 29.1 pg (25.0-35.0); MCHC 33.4 g/dL (31.0-37.0); Mean Platelet Volume 6.8; Monocytes # (A) 0.7 k/uL (0-1.0); Monocytes % (A) 6 %; Neutrophils % (A) 71 %; Platelet Count 265 k/uL (150-450); RBC 5.46 m/uL (3.80-5.40); WBC 11.2 k/uL (3.8-10.6)
[2019-06-01 20:19] LABS: ALT 26 U/L (9-52); AST 26 U/L (14-36); African American GFR (CKD) >90 (>60 ml/min/1.73 sqM); Albumin 4.8 g/dL (3.5-5.0); Alkaline Phosphatase 124 U/L (38-126); Amylase 65 U/L (30-110); Anion Gap 13 mmol/L; Blood Urea Nitrogen 10 mg/dL (7-17); Carbon Dioxide 18 mmol/L (22-30); Chloride 109 mmol/L (98-107); Glucose 98 mg/dL (74-99); Potassium 3.9 mmol/L (3.5-5.1); Sodium 140 mmol/L (137-145); Total Bilirubin 0.5 mg/dL (0.2-1.3); Total Protein 8.1 g/dL (6.3-8.2)
--- NOTE | 2019-06-01 20:56 | ED ---
Abdominal Pain HPI - General Chief Complaint: Abdominal Pain Stated Complaint: Abd pain Time Seen by Provider: 06/01/19 19:45 Source: patient Mode of arrival: ambulatory Limitations: no limitations - History of Present Illness Initial Comments: 38-year-old female patient presents to the emergency department today for evaluation of generalized abdominal pain mostly over the lower abdomen. Patient states she had some discomfort and felt unwell yesterday. Patient states that he the pain worsens significantly. Patient states that she will have constant pain but then the pain will intensify causing her to sweat. Patient states she's had several episodes of vomiting and diarrhea today. Denies any hematemesis, hematochezia, or melena. Denies fever or chills. Patient has had appendectomy, section, and tubal ligation but denies any other abdominal surgeries. Denies any abnormal vaginal bleeding or discharge. Denies any hematuria, dysuria, urinary frequency, urinary urgency. Patient denies any recent rash, shortness breath, chest pain, back pain, numbness, tingling, dizziness, weakness, headache, visual changes, or any other complaints. - Related Data Home Medications Medication Instructions Recorded Confirmed Sertraline [Zoloft] 50 mg PO DAILY 06/01/19 06/01/19 buPROPion HCL [Wellbutrin SR] 150 mg PO DAILY 06/01/19 06/01/19 Previous Rx's Medication Instructions Recorded Cephalexin [Keflex] 500 mg PO Q6HR #40 cap 06/01/19 Dicyclomine [Bentyl] 20 mg PO QID #12 tablet 06/01/19 Ondansetron [Zofran ODT] 4 mg PO Q8HR PRN #10 tab 06/01/19 Allergies Allergy/AdvReac Type Severity Reaction Status Date / Time No Known Allergies Allergy Verified 06/01/19 20:37 Review of Systems ROS Statement: Those systems with pertinent positive or pertinent negative responses have been documented in the HPI. ROS Other: All systems not noted in ROS Statement are negative. Past Medical History Past Medical History: Asthma Additional Past Medical History / Comment(s): MIGRAINES, kidney stones, ovarian cysts History of Any Multi-Drug Resistant Organisms: None Reported Past Surgical History: Appendectomy, Section, Tubal Ligation Additional Past Surgical History / Comment(s): cyst on left wrist removed Past Anesthesia/Blood Transfusion Reactions: No Reported Reaction Past Psychological History: Anxiety, Depression Smoking Status: Current every day smoker Past Alcohol Use History: Rare Past Drug Use History: None Reported - Past Family History Mother Family Medical History: Cancer Additional Family Medical History / Comment(s): breast Father Family Medical History: Congestive Heart Failure (CHF) Additional Family Medical History / Comment(s): strokes muliple pt unsure at what age, pacer General Exam Limitations: no limitations General appearance: alert, in no apparent distress, other (This is a well- developed, well-nourished adult female patient in no acute distress. Vital signs upon presentation are temperature 98.6F, pulse 78, respirations 18, blood pressure 126/95, pulse ox 96% on room air.) Eye exam: Present: normal appearance, PERRL, EOMI. Absent: scleral icterus, conjunctival injection, periorbital swelling ENT exam: Present: normal exam, normal oropharynx, mucous membranes moist Respiratory exam: Present: normal lung sounds bilaterally. Absent: respiratory distress, wheezes, rales, rhonchi, stridor Cardiovascular Exam: Present: regular rate, normal rhythm, normal heart sounds. Absent: systolic murmur, diastolic murmur, rubs, gallop, clicks GI/Abdominal exam: Present: soft, tenderness (Generalized abdominal tenderness), normal bowel sounds. Absent: distended, guarding, rebound, rigid Neurological exam: Present: alert, oriented X3, CN II-XII intact Psychiatric exam: Present: normal affect, normal mood Skin exam: Present: warm, dry, intact, normal color. Absent: rash Course Vital Signs 06/01/19 06/01/19 18:54 21:59 Temperature 98.6 F Pulse Rate 78 70 Respiratory 18 18 Rate Blood Pressure 126/95 115/80 O2 Sat by Pulse 96 95 Oximetry Medical Decision Making - Medical Decision Making 38-year-old female patient presents to the emergency department today for evaluation of vomiting, diarrhea, and abdominal pain. Physical examination did reveal generalized abdominal tenderness. Labs reviewed and did reveal mildly elevated white blood cell count at 11.1. Urinalysis showed evidence for urinary tract infection. Despite given pain medications through the IV patient continued to complain of pain so we did perform CT of the abdomen and pelvis which was unremarkable. I did discuss findings and results with the patient. We did discuss her symptoms could be related to gastroenteritis however she is urged to follow-up through primary care physician for reevaluation in 1-2 days. We did discuss return parameters and great detail. She verbalizes understanding and agrees with this plan. - Lab Data Result diagrams: 06/01/19 19:55 06/01/19 19:55 Lab Results 06/01/19 06/01/19 06/01/19 Range/Units 19:55 19:55 20:09 WBC 11.2 H (3.8-10.6) k/uL RBC 5.46 H (3.80-5.40) m/uL Hgb 15.9 (11.4-16.0) gm/dL Hct 47.5 H (34.0-46.0) % MCV 87.0 (80.0-100.0) fL MCH 29.1 (25.0-35.0) pg MCHC 33.4 (31.0-37.0) g/dL RDW 13.0 (11.5-15.5) % Plt Count 265 (150-450) k/uL Neutrophils % 71 % Lymphocytes % 18 % Monocytes % 6 % Eosinophils % 2 % Basophils % 1 % Neutrophils # 8.0 H (1.3-7.7) k/uL Lymphocytes # 2.1 (1.0-4.8) k/uL Monocytes # 0.7 (0-1.0) k/uL Eosinophils # 0.2 (0-0.7) k/uL Basophils # 0.1 (0-0.2) k/uL Sodium 140 (137-145) mmol/L Potassium 3.9 (3.5-5.1) mmol/L Chloride 109 H (98-107) mmol/L Carbon Dioxide 18 L (22-30) mmol/L Anion Gap 13 mmol/L BUN 10 (7-17) mg/dL Creatinine 0.71 (0.52-1.04) mg/dL Est GFR (CKD-EPI)AfAm >90 (>60 ml/min/1.73 sqM) Est GFR (CKD-EPI)NonAf >90 (>60 ml/min/1.73 sqM) Glucose 98 (74-99) mg/dL Plasma Lactic Acid Dominic 0.8 (0.7-2.0) mmol/L Calcium 10.0 (8.4-10.2) mg/dL Total Bilirubin 0.5 (0.2-1.3) mg/dL AST 26 (14-36) U/L ALT 26 (9-52) U/L Alkaline Phosphatase 124 (38-126) U/L Total Protein 8.1 (6.3-8.2) g/dL Albumin 4.8 (3.5-5.0) g/dL Amylase 65 (30-110) U/L Lipase 146 (23-300) U/L Urine Color Urine Appearance (Clear) Urine pH (5.0-8.0) Ur Specific [place] (1.001-1.035) Urine Protein (Negative) Urine Glucose (UA) (Negative) Urine Ketones (Negative) Urine Blood (Negative) Urine Nitrite (Negative) Urine Bilirubin (Negative) Urine Urobilinogen (<2.0) mg/dL Ur Leukocyte Esterase (Negative) Urine RBC (0-5) /hpf Urine WBC (0-5) /hpf Ur Squamous Epith Cells (0-4) /hpf Urine Bacteria (None) /hpf Hyaline Casts (0-2) /lpf Urine Mucus (None) /hpf Urine HCG, Qual (Not Detectd) 06/01/19 06/01/19 Range/Units 22:10 22:10 WBC (3.8-10.6) k/uL RBC (3.80-5.40) m/uL Hgb (11.4-16.0) gm/dL Hct (34.0-46.0) % MCV (80.0-100.0) fL MCH (25.0-35.0) pg MCHC (31.0-37.0) g/dL RDW (11.5-15.5) % Plt Count (150-450) k/uL Neutrophils % % Lymphocytes % % Monocytes % % Eosinophils % % Basophils % % Neutrophils # (1.3-7.7) k/uL Lymphocytes # (1.0-4.8) k/uL Monocytes # (0-1.0) k/uL Eosinophils # (0-0.7) k/uL Basophils # (0-0.2) k/uL Sodium (137-145) mmol/L Potassium (3.5-5.1) mmol/L Chloride (98-107) mmol/L Carbon Dioxide (22-30) mmol/L Anion Gap mmol/L BUN (7-17) mg/dL Creatinine (0.52-1.04) mg/dL Est GFR (CKD-EPI)AfAm (>60 ml/min/1.73 sqM) Est GFR (CKD-EPI)NonAf (>60 ml/min/1.73 sqM) Glucose (74-99) mg/dL Plasma Lactic Acid Dominic (0.7-2.0) mmol/L Calcium (8.4-10.2) mg/dL Total Bilirubin (0.2-1.3) mg/dL AST (14-36) U/L ALT (9-52) U/L Alkaline Phosphatase (38-126) U/L Total Protein (6.3-8.2) g/dL Albumin (3.5-5.0) g/dL Amylase (30-110) U/L Lipase (23-300) U/L Urine Color Yellow Urine Appearance Clear (Clear) Urine pH 5.5 (5.0-8.0) Ur Specific [place] >1.050 H (1.001-1.035) Urine Protein Trace H (Negative) Urine Glucose (UA) Negative (Negative) Urine Ketones Trace H (Negative) Urine Blood Trace H (Negative) Urine Nitrite Negative (Negative) Urine Bilirubin Negative (Negative) Urine Urobilinogen <2.0 (<2.0) mg/dL Ur Leukocyte Esterase Large H (Negative) Urine RBC 12 H (0-5) /hpf Urine WBC 29 H (0-5) /hpf Ur Squamous Epith Cells 7 H (0-4) /hpf Urine Bacteria Rare H (None) /hpf Hyaline Casts 4 H (0-2) /lpf Urine Mucus Few H (None) /hpf Urine HCG, Qual Not Detected (Not Detectd) - Radiology Data Radiology results: report reviewed, image reviewed 2 views of the abdomen are obtained. Report was reviewed in its entirety. Impression by Dr. Peewee Omer shows no acute process. CT abdomen and pelvis is obtained. Report was reviewed in its entirety. Impression by Dr. Peewee Omer shows no acute process. Disposition Clinical Impression: Abdominal pain, Vomiting, Diarrhea, UTI (urinary tract infection) Disposition: HOME SELF-CARE Condition: Good Instructions (If sedation given, give patient instructions): Urinary Tract Infection in Women (ED), Acute Nausea and Vomiting (ED), Acute Diarrhea (ED), Abdominal Pain (ED) Additional Instructions: Start with a clear liquid diet and advance as tolerated. Take medications as directed. Follow-up with your primary care physician for recheck in 1-2 days. Return to the emergency department immediately for any new, worsening, or concerning symptoms. Prescriptions: Dicyclomine [Bentyl] 20 mg PO QID #12 tablet Cephalexin [Keflex] 500 mg PO Q6HR #40 cap Ondansetron [Zofran ODT] 4 mg PO Q8HR PRN #10 tab PRN Reason: Nausea Is patient prescribed a controlled substance at d/c from ED?: No Referrals: Jovanni Olson MD [Primary Care Provider] - 1-2 days Time of Disposition: 22:17
[2019-06-01] MEDS ORDERED: SODIUM CHLORIDE 0.9% 500 ML 500 ML IV ONE (21:21)
--- NOTE | 2019-06-01 21:32 | XR ---
EXAMINATION TYPE: XR KUB DATE OF EXAM: 06/01/2019 8:38 PM CLINICAL HISTORY: Pain TECHNIQUE: 2 upright views COMPARISON: Radiographs 04/22/2017 FINDINGS: Scattered gas is seen in non-distended small bowel loops. Gas and fecal material is seen in non-distended colon. There is no visceromegaly, pneumoperitoneum, or abnormal calcification apprecia harshal. The lung bases are clear and the osseous structures are intact. IMPRESSION: No acute process.
[2019-06-01] MEDS ORDERED: diphenhydrAMINE 50 MG/ML 1 ML VIAL IVP STA (22:00)
[2019-06-01] MEDS ORDERED: METOCLOPRAMIDE 5 MG/ML 2 ML VIAL IVP STA (22:00)
[2019-06-01 22:01] VITALS: BP 115/80; PULSE 70
--- NOTE | 2019-06-01 22:10 | CT ---
EXAMINATION TYPE: CT abdomen pelvis w con DATE OF EXAM: 06/01/2019 COMPARISON: 04/22/2017 HISTORY: abdominal pain, vomiting CT DLP: 1338.6 mGycm Automated exposure control for dose reduction was used. TECHNIQUE: Helical acquisition of images was performed from the lung bases through the pelvis. CONTRAST: Performed without Oral Contrast and with IV Contrast, patient injected with 100 mL of Isovue 300. FINDINGS: LUNG BASES: No significant abnormality is appreciated. LIVER/GB: No significant abnormality is appreciated. PANCREAS: No significant abnormality is seen. SPLEEN: No significant abnormality is seen. ADRENALS: No significant abnormality is seen. KIDNEYS: No significant abnormality is seen. FREE AIR: No free air is visualized. No peritoneal fluid. RETROPERITONEAL ADENOPATHY: None visualized REPRODUCTIVE ORGANS: No significant abnormality is seen URINARY BLADDER: No significant abnormality is seen. PELVIC ADENOPATHY: None visualized. OSSEOUS STRUCTURES: No significant abnormality is seen. BOWEL: No significant abnormality is seen. OTHER: No acute vascular findings. IMPRESSION: NO ACUTE PROCESS.
[2019-06-01 22:32] LABS: Appearance,Urine Clear (Clear); Bacteria,Urine Rare /hpf; Bilirubin,Urine Negative (Negative); Blood,Urine Trace (Negative); Color,Urine Yellow; Glucose,Urine (UA) Negative (Negative); Hyaline Casts,Urine 4 /lpf (0-2); Ketones,Urine Trace (Negative); Leukocyte Esterase,Urine Large (Negative); Mucus,Urine Few /hpf; Nitrite,Urine Negative (Negative); PH, Urine 5.5 (5.0-8.0); Protein,Urine Trace (Negative); RBC,Urine 12 /hpf (0-5); Squamous Epithelial Cell,Urine 7 /hpf (0-4); Urobilinogen,Urine <2.0 mg/dL (<2.0); WBC,Urine 29 /hpf (0-5)
[2019-06-01 22:48] LABS: Specific Gravity,Urine >1.050 (1.001-1.035)
[2019-06-01] MEDS ORDERED: cefTRIAXone IN SWFI 1,000 MG/10 ML SYRINGE IVP ONE (23:00)
== END 2019-06-01 23:05 | disposition home or self-care (01) ==
LOC: EC 18:52
DX: N39.0 Urinary tract infection, site not specified (principal); R11.10 Vomiting, unspecified; R19.7 Diarrhea, unspecified; D72.829 Elevated white blood cell count, unspecified; F41.9 Anxiety disorder, unspecified; F32.9 Major depressive disorder, single episode, unspecified; F17.200 Nicotine dependence, unspecified, uncomplicated; Z87.442 Personal history of urinary calculi; Z87.42 Personal history of other diseases of the female genital tract; Z90.49 Acquired absence of other specified parts of digestive tract; Z98.51 Tubal ligation status; Z79.899 Other long term (current) drug therapy
CPT/HCPCS: 36415; 80053; 82150; 83605; 83690; 85025; 81001; 81025; 74018; 74177; 99284; 96374; 96375 ×4; 96361 ×2; J1200; J2765; J2405; J0696; J1170; Q9967

== ENCOUNTER 2019-06-23 21:33 | Emergency (ER) | payer OTHER ==
[2019-06-23] MEDS ORDERED: KETOROLAC 30 MG/ML 1 ML VIAL IVP STA (22:38)
[2019-06-23] MEDS ORDERED: SODIUM CHLORIDE 0.9% 1,000 ML IV STA (22:38)
[2019-06-23] MEDS ORDERED: ONDANSETRON 4 MG/2 ML VIAL IVP STA (22:38)
[2019-06-23] MEDS ORDERED: HYDROmorphone 0.5 MG/0.5 ML SYRINGE IVP STA (22:38)
[2019-06-23] MEDS ORDERED: diphenhydrAMINE 50 MG/ML 1 ML VIAL IVP STA (22:39)
[2019-06-23 22:52] LABS: Basophils # (A) 0.1 k/uL (0-0.2); Basophils % (A) 1 %; Eosinophils # (A) 0.3 k/uL (0-0.7); Eosinophils % (A) 3 %; HGB 14.4 gm/dL (11.4-16.0); Lymphocytes # (A) 2.7 k/uL (1.0-4.8); Lymphocytes % (A) 28 %; MCHC 33.5 g/dL (31.0-37.0); MCV 86.5 fL (80.0-100.0); Mean Platelet Volume 7.2; Monocytes # (A) 0.5 k/uL (0-1.0); Monocytes % (A) 5 %; Neutrophils # (A) 5.9 k/uL (1.3-7.7); Neutrophils % (A) 61 %; Platelet Count 231 k/uL (150-450); RBC 4.97 m/uL (3.80-5.40); RDW 12.9 % (11.5-15.5); WBC 9.6 k/uL (3.8-10.6)
[2019-06-23 22:53] LABS: Appearance,Urine Clear (Clear); Bilirubin,Urine Negative (Negative); Blood,Urine Negative (Negative); Color,Urine Yellow; Glucose,Urine (UA) Negative (Negative); Ketones,Urine Negative (Negative); Leukocyte Esterase,Urine Large (Negative); Mucus,Urine Rare /hpf; Nitrite,Urine Negative (Negative); Protein,Urine Negative (Negative); RBC,Urine 6 /hpf (0-5); Specific Gravity,Urine 1.017 (1.001-1.035); Squamous Epithelial Cell,Urine 4 /hpf (0-4); Urobilinogen,Urine <2.0 mg/dL (<2.0); WBC,Urine 4 /hpf (0-5)
[2019-06-23 23:02] LABS: ALT 19 U/L (9-52); AST 26 U/L (14-36); African American GFR (CKD) >90 (>60 ml/min/1.73 sqM); Albumin 4.2 g/dL (3.5-5.0); Alkaline Phosphatase 80 U/L (38-126); Amylase 56 U/L (30-110); Anion Gap 10 mmol/L; Blood Urea Nitrogen 10 mg/dL (7-17); Calcium 9.6 mg/dL (8.4-10.2); Carbon Dioxide 21 mmol/L (22-30); Chloride 109 mmol/L (98-107); Glucose 107 mg/dL (74-99); Potassium 3.9 mmol/L (3.5-5.1); Sodium 140 mmol/L (137-145); Total Bilirubin 0.2 mg/dL (0.2-1.3); Total Protein 7.3 g/dL (6.3-8.2)
[2019-06-23 23:32] VITALS: BP 125/80; PULSE 71; RESP 20; TEMP 98.1
[2019-06-23] MEDS ORDERED: DICYCLOMINE 10 MG/ML 2 ML AMP IM STA (23:58)
[2019-06-23] MEDS ORDERED: HYDROmorphone 1 MG/ML 1 ML SYRINGE IVP STA (23:58)
[2019-06-24] MEDS ORDERED: ONDANSETRON 4 MG ODT STARTER PACK 2 TAB BTL PO STA
[2019-06-24] MEDS ORDERED: ACET/COD 300 MG/30 MG STARTER PACK 6 TAB BTL PO STA
--- NOTE | 2019-06-24 | ED ---
Abdominal Pain HPI - General Chief Complaint: Abdominal Pain Stated Complaint: Abd Pain Time Seen by Provider: 06/23/19 22:00 Source: patient Mode of arrival: ambulatory Limitations: no limitations - History of Present Illness Initial Comments: 38 year-old female patient presents to the emergency department today for evaluation of lower abdominal pain and right flank pain. Patient states the symptoms have been present over the last month. States symptoms have worsened over the last one to 2 days. States that she has been nauseated and has had decreased appetite. She believes she has lost weight but has not checked the actual number. She denies any fever or chills. States she has been having nasal congestion and cough. States there is a recent flight in her basement which caused development of mold. She denies any constipation or diarrhea. Denies any hematochezia or melena. Denies any hematemesis. Patient denies any recent rash, shortness breath, chest pain, numbness, tingling, dizziness, weakness, hematuria, dysuria, urinary urgency, urinary frequency, headache, visual changes, or any other complaints. - Related Data Home Medications Medication Instructions Recorded Confirmed Sertraline [Zoloft] 50 mg PO DAILY 06/01/19 06/23/19 buPROPion HCL [Wellbutrin SR] 150 mg PO DAILY 06/01/19 06/23/19 Previous Rx's Medication Instructions Recorded Dicyclomine [Bentyl] 20 mg PO QID #12 tablet 06/23/19 Ondansetron [Zofran ODT] 4 mg PO Q8HR PRN #20 tab 06/23/19 Allergies Allergy/AdvReac Type Severity Reaction Status Date / Time No Known Allergies Allergy Verified 06/23/19 22:15 Review of Systems ROS Statement: Those systems with pertinent positive or pertinent negative responses have been documented in the HPI. ROS Other: All systems not noted in ROS Statement are negative. Past Medical History Past Medical History: Asthma Additional Past Medical History / Comment(s): MIGRAINES, kidney stones, ovarian cysts History of Any Multi-Drug Resistant Organisms: None Reported Past Surgical History: Appendectomy, Section, Tubal Ligation Additional Past Surgical History / Comment(s): cyst on left wrist removed Past Anesthesia/Blood Transfusion Reactions: No Reported Reaction Past Psychological History: Anxiety, Depression Smoking Status: Current every day smoker Past Alcohol Use History: None Reported Past Drug Use History: Marijuana - Past Family History Mother Family Medical History: Cancer Additional Family Medical History / Comment(s): breast Father Family Medical History: Congestive Heart Failure (CHF) Additional Family Medical History / Comment(s): strokes muliple pt unsure at what age, pacer General Exam Limitations: no limitations General appearance: alert, in no apparent distress, other (Physical well- developed, well-nourished adult female patient in no acute distress. Vital signs upon presentation are temperature 98.3F, pulse 99, respirations 16, blood pressure 113/75, pulse ox 97% on room air.) Eye exam: Present: normal appearance, PERRL, EOMI. Absent: scleral icterus, conjunctival injection, periorbital swelling ENT exam: Present: normal exam, normal oropharynx, mucous membranes moist Respiratory exam: Present: normal lung sounds bilaterally. Absent: respiratory distress, wheezes, rales, rhonchi, stridor Cardiovascular Exam: Present: regular rate, normal rhythm, normal heart sounds. Absent: systolic murmur, diastolic murmur, rubs, gallop, clicks GI/Abdominal exam: Present: soft, tenderness (Left lower quadrant tenderness, right upper quadrant tenderness), normal bowel sounds. Absent: distended, guarding, rebound, rigid Back exam: Present: normal inspection. Absent: CVA tenderness (R), CVA tenderness (L) Neurological exam: Present: alert, oriented X3, CN II-XII intact Psychiatric exam: Present: normal affect, normal mood Skin exam: Present: warm, dry, intact, normal color. Absent: rash Course Vital Signs 06/23/19 06/23/19 21:41 23:29 Temperature 98.3 F 98.1 F Pulse Rate 99 71 Respiratory 16 20 Rate Blood Pressure 113/75 125/80 O2 Sat by Pulse 97 99 Oximetry Medical Decision Making - Medical Decision Making 38-year-old female patient presented to the emergency department today for evaluation of right upper quadrant and left lower quadrant abdominal pain. Patient exhibited mild generalized abdominal tenderness. Patient has been having symptoms over the last month. Labs reviewed and were unremarkable. She is afebrile normal vital signs. Patient was seen here in the emergency department a month ago with similar symptoms, CT of the abdomen and pelvis was unremarkable. We did discuss exposure to radiation, she agrees not to undergo computed tomography scan today. She be given medication for her symptoms. She be discharged to follow up with GI specialty and a primary care physician. Return parameters were discussed in detail. She verbalizes understanding and agrees with this plan. - Lab Data Result diagrams: 06/23/19 21:55 06/23/19 21:55 Lab Results 06/23/19 06/23/19 06/23/19 Range/Units 21:55 21:55 21:55 WBC 9.6 (3.8-10.6) k/uL RBC 4.97 (3.80-5.40) m/uL Hgb 14.4 (11.4-16.0) gm/dL Hct 43.0 (34.0-46.0) % MCV 86.5 (80.0-100.0) fL MCH 29.0 (25.0-35.0) pg MCHC 33.5 (31.0-37.0) g/dL RDW 12.9 (11.5-15.5) % Plt Count 231 (150-450) k/uL Neutrophils % 61 % Lymphocytes % 28 % Monocytes % 5 % Eosinophils % 3 % Basophils % 1 % Neutrophils # 5.9 (1.3-7.7) k/uL Lymphocytes # 2.7 (1.0-4.8) k/uL Monocytes # 0.5 (0-1.0) k/uL Eosinophils # 0.3 (0-0.7) k/uL Basophils # 0.1 (0-0.2) k/uL Sodium 140 (137-145) mmol/L Potassium 3.9 (3.5-5.1) mmol/L Chloride 109 H (98-107) mmol/L Carbon Dioxide 21 L (22-30) mmol/L Anion Gap 10 mmol/L BUN 10 (7-17) mg/dL Creatinine 0.64 (0.52-1.04) mg/dL Est GFR (CKD-EPI)AfAm >90 (>60 ml/min/1.73 sqM) Est GFR (CKD-EPI)NonAf >90 (>60 ml/min/1.73 sqM) Glucose 107 H (74-99) mg/dL Plasma Lactic Acid Dominic 0.9 (0.7-2.0) mmol/L Calcium 9.6 (8.4-10.2) mg/dL Total Bilirubin 0.2 (0.2-1.3) mg/dL AST 26 (14-36) U/L ALT 19 (9-52) U/L Alkaline Phosphatase 80 (38-126) U/L Troponin I (0.000-0.034) ng/mL Total Protein 7.3 (6.3-8.2) g/dL Albumin 4.2 (3.5-5.0) g/dL Amylase 56 (30-110) U/L Lipase 158 (23-300) U/L Urine Color Urine Appearance (Clear) Urine pH (5.0-8.0) Ur Specific [place] (1.001-1.035) Urine Protein (Negative) Urine Glucose (UA) (Negative) Urine Ketones (Negative) Urine Blood (Negative) Urine Nitrite (Negative) Urine Bilirubin (Negative) Urine Urobilinogen (<2.0) mg/dL Ur Leukocyte Esterase (Negative) Urine RBC (0-5) /hpf Urine WBC (0-5) /hpf Ur Squamous Epith Cells (0-4) /hpf Urine Mucus (None) /hpf 06/23/19 06/23/19 Range/Units 21:55 21:55 WBC (3.8-10.6) k/uL RBC (3.80-5.40) m/uL Hgb (11.4-16.0) gm/dL Hct (34.0-46.0) % MCV (80.0-100.0) fL MCH (25.0-35.0) pg MCHC (31.0-37.0) g/dL RDW (11.5-15.5) % Plt Count (150-450) k/uL Neutrophils % % Lymphocytes % % Monocytes % % Eosinophils % % Basophils % % Neutrophils # (1.3-7.7) k/uL Lymphocytes # (1.0-4.8) k/uL Monocytes # (0-1.0) k/uL Eosinophils # (0-0.7) k/uL Basophils # (0-0.2) k/uL Sodium (137-145) mmol/L Potassium (3.5-5.1) mmol/L Chloride (98-107) mmol/L Carbon Dioxide (22-30) mmol/L Anion Gap mmol/L BUN (7-17) mg/dL Creatinine (0.52-1.04) mg/dL Est GFR (CKD-EPI)AfAm (>60 ml/min/1.73 sqM) Est GFR (CKD-EPI)NonAf (>60 ml/min/1.73 sqM) Glucose (74-99) mg/dL Plasma Lactic Acid Dominic (0.7-2.0) mmol/L Calcium (8.4-10.2) mg/dL Total Bilirubin (0.2-1.3) mg/dL AST (14-36) U/L ALT (9-52) U/L Alkaline Phosphatase (38-126) U/L Troponin I <0.012 (0.000-0.034) ng/mL Total Protein (6.3-8.2) g/dL Albumin (3.5-5.0) g/dL Amylase (30-110) U/L Lipase (23-300) U/L Urine Color Yellow Urine Appearance Clear (Clear) Urine pH 6.0 (5.0-8.0) Ur Specific [place] 1.017 (1.001-1.035) Urine Protein Negative (Negative) Urine Glucose (UA) Negative (Negative) Urine Ketones Negative (Negative) Urine Blood Negative (Negative) Urine Nitrite Negative (Negative) Urine Bilirubin Negative (Negative) Urine Urobilinogen <2.0 (<2.0) mg/dL Ur Leukocyte Esterase Large H (Negative) Urine RBC 6 H (0-5) /hpf Urine WBC 4 (0-5) /hpf Ur Squamous Epith Cells 4 (0-4) /hpf Urine Mucus Rare H (None) /hpf - EKG Data -: EKG Interpreted by Sd EKG Comments: EKG obtained at 2254 shows normal sinus rhythm with a ventricular rate of 77, [place] interval 138, QRS duration 76, QT 378, QTC 427. No evidence of ST elevation or depression. Disposition Clinical Impression: Abdominal pain Disposition: HOME SELF-CARE Condition: Good Instructions (If sedation given, give patient instructions): Abdominal Pain (ED) Additional Instructions: Follow-up with primary care physician and GI specialist as discussed. Recommendations are below. Take medications as directed for symptom relief. Return to the emergency department immediately for any new, worsening, or jovi rning symptoms. Prescriptions: Dicyclomine [Bentyl] 20 mg PO QID #12 tablet Ondansetron [Zofran ODT] 4 mg PO Q8HR PRN #20 tab PRN Reason: Nausea Is patient prescribed a controlled substance at d/c from ED?: No Referrals: Ritesh Faith MD [STAFF PHYSICIAN] - 1-2 days Wally Mckeon DO [STAFF PHYSICIAN] - 1-2 days Claribel Esquivel MD [STAFF PHYSICIAN] - 1-2 days Eric Canela MD [STAFF PHYSICIAN] - 1-2 days Time of Disposition: 00:00
== END 2019-06-24 00:30 | disposition home or self-care (01) ==
LOC: EC 21:33
DX: R10.11 Right upper quadrant pain (principal); R10.32 Left lower quadrant pain; R11.0 Nausea; R63.8 Other symptoms and signs concerning food and fluid intake; R09.81 Nasal congestion; R05 Cough; F32.9 Major depressive disorder, single episode, unspecified; F41.9 Anxiety disorder, unspecified; F17.200 Nicotine dependence, unspecified, uncomplicated; Z79.899 Other long term (current) drug therapy; Z90.49 Acquired absence of other specified parts of digestive tract; Z87.09 Personal history of other diseases of the respiratory system
CPT/HCPCS: 36415; 93005; 80053; 82150; 83605; 83690; 84484; 85025; 81001; 99284; 96374; 96375 ×3; 96376; 96361; 96372; J1200; J0500; J2405; J1885; J1170 ×2; S0119

== ENCOUNTER 2019-07-06 23:59 | Emergency (ER) | payer OTHER ==
[2019-07-07] MEDS ORDERED: MORPHINE SULFATE 4 MG/ML SYRINGE IV STA ×2 (00:34→02:20)
[2019-07-07] MEDS ORDERED: METOCLOPRAMIDE 5 MG/ML 2 ML VIAL IVP STA (00:34)
[2019-07-07] MEDS ORDERED: SODIUM CHLORIDE 0.9% 500 ML 500 ML IV STA ×2 (00:34→02:21)
[2019-07-07 01:10] VITALS: RESP 18
[2019-07-07 01:13] LABS: Basophils % (A) 1 %; Eosinophils # (A) 0.3 k/uL (0-0.7); Eosinophils % (A) 4 %; HCT 39.4 % (34.0-46.0); HGB 13.4 gm/dL (11.4-16.0); Lymphocytes # (A) 2.6 k/uL (1.0-4.8); Lymphocytes % (A) 30 %; MCHC 33.9 g/dL (31.0-37.0); MCV 88.6 fL (80.0-100.0); Mean Platelet Volume 6.4; Monocytes # (A) 0.4 k/uL (0-1.0); Monocytes % (A) 5 %; Neutrophils % (A) 58 %; Platelet Count 227 k/uL (150-450); RBC 4.45 m/uL (3.80-5.40); RDW 12.9 % (11.5-15.5); WBC 8.6 k/uL (3.8-10.6)
[2019-07-07 01:27] LABS: ALT 20 U/L (9-52); AST 28 U/L (14-36); African American GFR (CKD) >90 (>60 ml/min/1.73 sqM); Albumin 3.8 g/dL (3.5-5.0); Alkaline Phosphatase 79 U/L (38-126); Anion Gap 7 mmol/L; Blood Urea Nitrogen 11 mg/dL (7-17); Calcium 9.3 mg/dL (8.4-10.2); Carbon Dioxide 22 mmol/L (22-30); Chloride 110 mmol/L (98-107); Glucose 89 mg/dL (74-99); Potassium 3.8 mmol/L (3.5-5.1); Sodium 139 mmol/L (137-145); Total Bilirubin 0.2 mg/dL (0.2-1.3); Total Protein 6.4 g/dL (6.3-8.2)
--- NOTE | 2019-07-07 01:49 | CT ---
EXAMINATION TYPE: CT brain abdullahi nguyen con DATE OF EXAM: 07/07/2019 COMPARISON: None HISTORY: fall, head and neck pain x2days CT DLP: 1376.8 mGycm Automated exposure control for dose reduction was used. TECHNIQUE: CT scan of the head and cervical spine are performed without contrast. FINDINGS: Ventricles and sulci appear normal. There is no mass effect nor midline shift. There is n o sign of intracranial hemorrhage. There is no sign of cerebral edema. Calvarium is intact. Cervical vertebra have normal spacing and alignment. Posterior elements are intact. Skull base is int act. Facet joints appear normal. Prevertebral soft tissues appear normal. IMPRESSION: Normal CT scan of the brain. Normal CT scan cervical spine.
--- NOTE | 2019-07-07 01:50 | XR ---
EXAMINATION TYPE: XR lumbar spine 2 or 3V DATE OF EXAM: 07/07/2019 COMPARISON: 12/08/2018 HISTORY: Fall. Back pain TECHNIQUE: 3 views FINDINGS: Lumbar vertebra have fairly normal spacing and alignment. Posterior elements are intact but sacroiliac joints appear normal. IMPRESSION: Normal lumbar spine for age. No change.
--- NOTE | 2019-07-07 01:51 | XR ---
EXAMINATION TYPE: XR chest 2V DATE OF EXAM: 07/07/2019 COMPARISON: 01/12/2017 HISTORY: Fall. Back pain TECHNIQUE: Frontal and lateral views of the chest are obtained. FINDINGS: Heart and mediastinum are normal. There is a small infiltrate at the lateral left lung bas e. The other lung mcgill are clear. There is no pneumothorax. Bony thorax is intact. IMPRESSION: Mild infiltrate or atelectasis lateral left lung base. Normal heart.
--- NOTE | 2019-07-07 01:53 | XR ---
EXAMINATION TYPE: XR thoracic spine complete DATE OF EXAM: 07/07/2019 COMPARISON: 01/12/2017 HISTORY: Fall. Back pain TECHNIQUE: 3 views FINDINGS: Thoracic vertebra have normal spacing and alignment. Posterior elements are intact. There i s no paraspinal mass. There is no compression fracture. IMPRESSION: Normal thoracic spine. No fracture. No change.
[2019-07-07 02:03] LABS: Appearance,Urine Cloudy (Clear); Bilirubin,Urine Negative (Negative); Blood,Urine Trace (Negative); Color,Urine Yellow; Glucose,Urine (UA) Negative (Negative); Ketones,Urine Negative (Negative); Leukocyte Esterase,Urine Large (Negative); Mucus,Urine Many /hpf; Nitrite,Urine Negative (Negative); PH, Urine 5.5 (5.0-8.0); Protein,Urine Trace (Negative); RBC,Urine 8 /hpf (0-5); Specific Gravity,Urine 1.017 (1.001-1.035); Squamous Epithelial Cell,Urine 9 /hpf (0-4); Urobilinogen,Urine <2.0 mg/dL (<2.0); WBC,Urine 14 /hpf (0-5)
[2019-07-07] MEDS ORDERED: diphenhydrAMINE 50 MG/ML 1 ML VIAL IVP STA (02:20)
[2019-07-07] MEDS ORDERED: KETOROLAC 30 MG/ML 1 ML VIAL IVP STA (02:20)
--- NOTE | 2019-07-07 02:22 | ED ---
Fall HPI - General Chief Complaint: Fall Stated Complaint: Head Injury/Photosensitivity Time Seen by Provider: 07/07/19 00:14 Source: patient Mode of arrival: ambulatory - History of Present Illness MD Complaint: fall Onset/Timin -: days(s) Fall From: standing When Fall Occurred: other Fall Witnessed: yes, by family Place Fall Occurred: home Loss of Consciousness: none Prolonged Down Time?: no Symptoms Prior to Fall: none Location: head, neck, back Severity: moderate Quality: aching Context: tripped/slipped Associated Symptoms: headache, neck pain - Related Data Home Medications Medication Instructions Recorded Confirmed Sertraline [Zoloft] 50 mg PO DAILY 06/01/19 06/23/19 buPROPion HCL [Wellbutrin SR] 150 mg PO DAILY 06/01/19 06/23/19 Previous Rx's Medication Instructions Recorded Dicyclomine [Bentyl] 20 mg PO QID #12 tablet 06/23/19 Ondansetron [Zofran ODT] 4 mg PO Q8HR PRN #20 tab 06/23/19 Metoclopramide [Reglan] 10 mg PO Q6H PRN #10 tab 07/07/19 Allergies Allergy/AdvReac Type Severity Reaction Status Date / Time No Known Allergies Allergy Verified 07/07/19 00:07 Review of Systems ROS Statement: Those systems with pertinent positive or pertinent negative responses have been documented in the HPI. ROS Other: All systems not noted in ROS Statement are negative. Constitutional: Denies: fever, chills Eyes: Denies: eye pain, vision change ENT: Denies: ear pain, hearing loss Respiratory: Denies: cough, dyspnea Cardiovascular: Denies: chest pain, palpitations, syncope Gastrointestinal: Denies: abdominal pain, vomiting, diarrhea Musculoskeletal: Reports: as per HPI, back pain Skin: Denies: rash Neurological: Reports: as per HPI, headache. Denies: weakness, numbness, paresthesias, confusion Hematological/Lymphatic: Denies: easy bleeding Past Medical History Past Medical History: Asthma Additional Past Medical History / Comment(s): MIGRAINES, kidney stones, ovarian cysts History of Any Multi-Drug Resistant Organisms: None Reported Past Surgical History: Appendectomy, Section, Tubal Ligation Additional Past Surgical History / Comment(s): cyst on left wrist removed Past Anesthesia/Blood Transfusion Reactions: No Reported Reaction Past Psychological History: Anxiety, Depression Smoking Status: Current every day smoker Past Alcohol Use History: None Reported Past Drug Use History: Marijuana - Past Family History Mother Family Medical History: Cancer Additional Family Medical History / Comment(s): breast Father Family Medical History: Congestive Heart Failure (CHF) Additional Family Medical History / Comment(s): strokes muliple pt unsure at what age, pacer General Exam Limitations: no limitations General appearance: alert, in no apparent distress Head exam: Present: atraumatic, normocephalic Eye exam: Present: normal appearance, PERRL, EOMI. Absent: scleral icterus, conjunctival injection ENT exam: Present: normal oropharynx Neck exam: Present: normal inspection, tenderness, full ROM Respiratory exam: Present: normal lung sounds bilaterally. Absent: respiratory distress, wheezes, rales, rhonchi, stridor, chest wall tenderness Cardiovascular Exam: Present: regular rate, normal rhythm, normal heart sounds. Absent: systolic murmur, diastolic murmur, rubs, gallop GI/Abdominal exam: Present: soft. Absent: distended, tenderness, guarding, rebound, mass Extremities exam: Present: normal inspection, full ROM, normal capillary refill. Absent: tenderness Back exam: Present: normal inspection, vertebral tenderness. Absent: CVA tenderness (R), CVA tenderness (L) Neurological exam: Present: alert Skin exam: Present: warm, dry, intact, normal color. Absent: rash Course Vital Signs 07/07/19 07/07/19 07/07/19 00:05 01:08 02:25 Temperature 98.4 F 98.7 F Pulse Rate 68 64 88 Respiratory 20 18 18 Rate Blood Pressure 106/71 118/94 116/83 O2 Sat by Pulse 99 96 98 Oximetry Medical Decision Making - Lab Data Result diagrams: 07/07/19 01:04 07/07/19 01:04 Lab Results 07/07/19 07/07/19 07/07/19 Range/Units 01:04 01:04 01:52 WBC 8.6 (3.8-10.6) k/uL RBC 4.45 (3.80-5.40) m/uL Hgb 13.4 (11.4-16.0) gm/dL Hct 39.4 (34.0-46.0) % MCV 88.6 (80.0-100.0) fL MCH 30.0 (25.0-35.0) pg MCHC 33.9 (31.0-37.0) g/dL RDW 12.9 (11.5-15.5) % Plt Count 227 (150-450) k/uL Neutrophils % 58 % Lymphocytes % 30 % Monocytes % 5 % Eosinophils % 4 % Basophils % 1 % Neutrophils # 5.0 (1.3-7.7) k/uL Lymphocytes # 2.6 (1.0-4.8) k/uL Monocytes # 0.4 (0-1.0) k/uL Eosinophils # 0.3 (0-0.7) k/uL Basophils # 0.0 (0-0.2) k/uL Sodium 139 (137-145) mmol/L Potassium 3.8 (3.5-5.1) mmol/L Chloride 110 H (98-107) mmol/L Carbon Dioxide 22 (22-30) mmol/L Anion Gap 7 mmol/L BUN 11 (7-17) mg/dL Creatinine 0.65 (0.52-1.04) mg/dL Est GFR (CKD-EPI)AfAm >90 (>60 ml/min/1.73 sqM) Est GFR (CKD-EPI)NonAf >90 (>60 ml/min/1.73 sqM) Glucose 89 (74-99) mg/dL Calcium 9.3 (8.4-10.2) mg/dL Total Bilirubin 0.2 (0.2-1.3) mg/dL AST 28 (14-36) U/L ALT 20 (9-52) U/L Alkaline Phosphatase 79 (38-126) U/L Total Protein 6.4 (6.3-8.2) g/dL Albumin 3.8 (3.5-5.0) g/dL Urine Color Yellow Urine Appearance Cloudy H (Clear) Urine pH 5.5 (5.0-8.0) Ur Specific [place] 1.017 (1.001-1.035) Urine Protein Trace H (Negative) Urine Glucose (UA) Negative (Negative) Urine Ketones Negative (Negative) Urine Blood Trace H (Negative) Urine Nitrite Negative (Negative) Urine Bilirubin Negative (Negative) Urine Urobilinogen <2.0 (<2.0) mg/dL Ur Leukocyte Esterase Large H (Negative) Urine RBC 8 H (0-5) /hpf Urine WBC 14 H (0-5) /hpf Ur Squamous Epith Cells 9 H (0-4) /hpf Urine Mucus Many H (None) /hpf Disposition Clinical Impression: Fall, Head injury Disposition: HOME SELF-CARE Condition: Good Instructions (If sedation given, give patient instructions): Head Injury (ED) Prescriptions: Metoclopramide [Reglan] 10 mg PO Q6H PRN #10 tab PRN Reason: Headache Is patient prescribed a controlled substance at d/c from ED?: No Referrals: Jovanni Olson MD [Primary Care Provider] - 1-2 days Jocelyn Montero MD [STAFF PHYSICIAN] - 1-2 days
[2019-07-07 02:39] VITALS: BP 116/83; PULSE 88; TEMP 98.7
== END 2019-07-07 03:23 | disposition home or self-care (01) ==
LOC: EC 23:59
DX: S09.90XA Unspecified injury of head, initial encounter (principal); M54.2 Cervicalgia; F41.9 Anxiety disorder, unspecified; F32.9 Major depressive disorder, single episode, unspecified; F17.200 Nicotine dependence, unspecified, uncomplicated; Z79.899 Other long term (current) drug therapy; W01.0XXA Fall on same level from slipping, tripping and stumbling without subsequent striking against object, initial encounter; Y92.009 Unspecified place in unspecified non-institutional (private) residence as the place of occurrence of the external cause
CPT/HCPCS: 36415; 80053; 85025; 81001; 72072; 72100; 71046; 72125; 70450; 99284; 96374; 96375 ×3; 96376; J2270; J1200; J2765; J1885

== ENCOUNTER 2019-09-26 19:45 | Emergency (ER) | payer OTHER ==
[2019-09-26] MEDS ORDERED: SODIUM CHLORIDE 0.9% 1,000 ML IV STA (20:22)
--- NOTE | 2019-09-26 20:26 | ED ---
General Adult HPI - General Chief complaint: Fall Stated complaint: Foot injury Time Seen by Provider: 09/26/19 20:09 Source: patient, RN notes reviewed Mode of arrival: EMS Limitations: no limitations, physical limitation - History of Present Illness Initial comments: 38-year-old female with a past medical history of migraines, kidney stones, ovarian cysts presents to the emergency department for a chief complaint of syncope. Patient had a syncopal episode last night. States she was standing in the kitchen making brownies when she started to see stars and feel lightheaded. States she then passed out. Patient states that when she woke up she had hit her head and injured her left ankle. States she does not like coming to the emergency department so did not seek evaluation at that time. Patient states today her ankle is really painful so that by her in. She states she is also having a headache that she thinks is from hitting her head. She denies any other injuries.Patient has no other complaints at this time including shortness of breath, chest pain, abdominal pain, nausea or vomiting, or visual changes. - Related Data Home Medications Medication Instructions Recorded Confirmed Sertraline [Zoloft] 50 mg PO DAILY 06/01/19 06/23/19 buPROPion HCL [Wellbutrin SR] 150 mg PO DAILY 06/01/19 06/23/19 Previous Rx's Medication Instructions Recorded Dicyclomine [Bentyl] 20 mg PO QID #12 tablet 06/23/19 Ondansetron [Zofran ODT] 4 mg PO Q8HR PRN #20 tab 06/23/19 Metoclopramide [Reglan] 10 mg PO Q6H PRN #10 tab 07/07/19 Allergies Allergy/AdvReac Type Severity Reaction Status Date / Time No Known Allergies Allergy Verified 07/07/19 00:07 Review of Systems ROS Statement: Those systems with pertinent positive or pertinent negative responses have been documented in the HPI. ROS Other: All systems not noted in ROS Statement are negative. Past Medical History Past Medical History: Asthma Additional Past Medical History / Comment(s): MIGRAINES, kidney stones, ovarian cysts History of Any Multi-Drug Resistant Organisms: None Reported Past Surgical History: Appendectomy, Section, Tubal Ligation Additional Past Surgical History / Comment(s): cyst on left wrist removed Past Anesthesia/Blood Transfusion Reactions: No Reported Reaction Past Psychological History: Anxiety, Depression Smoking Status: Current every day smoker Past Alcohol Use History: None Reported Past Drug Use History: Marijuana - Past Family History Mother Family Medical History: Cancer Additional Family Medical History / Comment(s): breast Father Family Medical History: Congestive Heart Failure (CHF) Additional Family Medical History / Comment(s): strokes muliple pt unsure at what age, pacer General Exam Limitations: no limitations, physical limitation General appearance: alert, in no apparent distress Head exam: Present: atraumatic, normocephalic, normal inspection Eye exam: Present: normal appearance, PERRL, EOMI. Absent: scleral icterus, con junctival injection, periorbital swelling ENT exam: Present: normal exam, mucous membranes moist Neck exam: Present: normal inspection, full ROM. Absent: tenderness, meningismus, lymphadenopathy Respiratory exam: Present: normal lung sounds bilaterally. Absent: respiratory distress, wheezes, rales, rhonchi, stridor Cardiovascular Exam: Present: regular rate, normal rhythm, normal heart sounds. Absent: systolic murmur, diastolic murmur, rubs, gallop, clicks GI/Abdominal exam: Present: soft, normal bowel sounds. Absent: distended, tenderness, guarding, rebound, rigid Extremities exam: Present: tenderness (Notice noted over the lateral malleolus of the left ankle. No medial malleoli tenderness.), normal capillary refill (Capillary refill less than 2 seconds, DP pulse 2+ in the left lower extremity), joint swelling (Has moderate edema noted of the left lateral malleolus). Absent: full ROM (Some limited range of motion of the left ankle secondary to pain however both plantar and dorsiflexion is intact) Back exam: Absent: vertebral tenderness Course Vital Signs 09/26/19 09/26/19 20:11 23:07 Temperature 97.5 F L 98.0 F Pulse Rate 90 72 Respiratory 18 18 Rate Blood Pressure 119/68 116/64 O2 Sat by Pulse 96 97 Oximetry EKG Findings - EKG Comments: EKG Findings:: Normal sinus rhythm, ventricular rate 90, IN int 138, QTC 435 Medical Decision Making - Medical Decision Making CBC CMP unremarkable. Troponin is negative. Urinalysis unremarkable. EKG shows a normal sinus rhythm. CT brain and C-spine shows a normal computed tomography scan of the brain as well as cervical spine. No sign of intracranial hemorrhage. Skull base is intact. Chest x-ray shows a normal chest with clearing of the atelectasis compared to old exam. ankle x-ray shows soft tissue swelling without fracture seen. X-ray of the left foot shows no acute abnormality. CT showed no evidence of pulmonary embolism. Patient was given pain medication for headache as she did hit her head as well as ankle pain. Patient was given a splint for the ankle as well as follow-up for orthopedics. At this time I do not see an emergent cause for syncope. Case discussed with Dr. Foster. He recommended follow-up with primary care and return if she has any worsening symptoms. - Lab Data Result diagrams: 09/26/19 20:50 09/26/19 20:50 Lab Results 09/26/19 09/26/19 09/26/19 Range/Units 20:38 20:38 20:50 WBC 10.5 (3.8-10.6) k/uL RBC 4.61 (3.80-5.40) m/uL Hgb 13.9 (11.4-16.0) gm/dL Hct 41.2 (34.0-46.0) % MCV 89.4 (80.0-100.0) fL MCH 30.1 (25.0-35.0) pg MCHC 33.7 (31.0-37.0) g/dL RDW 13.0 (11.5-15.5) % Plt Count 280 (150-450) k/uL Neutrophils % 69 % Lymphocytes % 20 % Monocytes % 7 % Eosinophils % 2 % Basophils % 1 % Neutrophils # 7.2 (1.3-7.7) k/uL Lymphocytes # 2.1 (1.0-4.8) k/uL Monocytes # 0.8 (0-1.0) k/uL Eosinophils # 0.2 (0-0.7) k/uL Basophils # 0.1 (0-0.2) k/uL PT (9.0-12.0) sec INR (<1.2) APTT (22.0-30.0) sec D-Dimer (<0.60) mg/L FEU Sodium (137-145) mmol/L Potassium (3.5-5.1) mmol/L Chloride (98-107) mmol/L Carbon Dioxide (22-30) mmol/L Anion Gap mmol/L BUN (7-17) mg/dL Creatinine (0.52-1.04) mg/dL Est GFR (CKD-EPI)AfAm (>60 ml/min/1.73 sqM) Est GFR (CKD-EPI)NonAf (>60 ml/min/1.73 sqM) Glucose (74-99) mg/dL Calcium (8.4-10.2) mg/dL Total Bilirubin (0.2-1.3) mg/dL AST (14-36) U/L ALT (4-34) U/L Alkaline Phosphatase (38-126) U/L Troponin I (0.000-0.034) ng/mL Total Protein (6.3-8.2) g/dL Albumin (3.5-5.0) g/dL Urine Color Yellow Urine Appearance Clear (Clear) Urine pH 5.0 (5.0-8.0) Ur Specific [place] 1.025 (1.001-1.035) Urine Protein Negative (Negative) Urine Glucose (UA) Negative (Negative) Urine Ketones Negative (Negative) Urine Blood Trace H (Negative) Urine Nitrite Negative (Negative) Urine Bilirubin Negative (Negative) Urine Urobilinogen <2.0 (<2.0) mg/dL Ur Leukocyte Esterase Negative (Negative) Urine RBC 1 (0-5) /hpf Urine WBC 2 (0-5) /hpf Ur Squamous Epith Cells 4 (0-4) /hpf Urine Bacteria Rare H (None) /hpf Urine Mucus Rare H (None) /hpf Urine HCG, Qual Not Detected (Not Detectd) 09/26/19 09/26/19 09/26/19 Range/Units 20:50 20:50 20:50 WBC (3.8-10.6) k/uL RBC (3.80-5.40) m/uL Hgb (11.4-16.0) gm/dL Hct (34.0-46.0) % MCV (80.0-100.0) fL MCH (25.0-35.0) pg MCHC (31.0-37.0) g/dL RDW (11.5-15.5) % Plt Count (150-450) k/uL Neutrophils % % Lymphocytes % % Monocytes % % Eosinophils % % Basophils % % Neutrophils # (1.3-7.7) k/uL Lymphocytes # (1.0-4.8) k/uL Monocytes # (0-1.0) k/uL Eosinophils # (0-0.7) k/uL Basophils # (0-0.2) k/uL PT 9.5 (9.0-12.0) sec INR 0.9 (<1.2) APTT 23.1 (22.0-30.0) sec D-Dimer (<0.60) mg/L FEU Sodium 141 (137-145) mmol/L Potassium 3.7 (3.5-5.1) mmol/L Chloride 108 H (98-107) mmol/L Carbon Dioxide 25 (22-30) mmol/L Anion Gap 8 mmol/L BUN 11 (7-17) mg/dL Creatinine 0.69 (0.52-1.04) mg/dL Est GFR (CKD-EPI)AfAm >90 (>60 ml/min/1.73 sqM) Est GFR (CKD-EPI)NonAf >90 (>60 ml/min/1.73 sqM) Glucose 63 L (74-99) mg/dL Calcium 9.2 (8.4-10.2) mg/dL Total Bilirubin 0.3 (0.2-1.3) mg/dL AST 27 (14-36) U/L ALT 19 (4-34) U/L Alkaline Phosphatase 97 (38-126) U/L Troponin I <0.012 (0.000-0.034) ng/mL Total Protein 7.1 (6.3-8.2) g/dL Albumin 4.0 (3.5-5.0) g/dL Urine Color Urine Appearance (Clear) Urine pH (5.0-8.0) Ur Specific [place] (1.001-1.035) Urine Protein (Negative) Urine Glucose (UA) (Negative) Urine Ketones (Negative) Urine Blood (Negative) Urine Nitrite (Negative) Urine Bilirubin (Negative) Urine Urobilinogen (<2.0) mg/dL Ur Leukocyte Esterase (Negative) Urine RBC (0-5) /hpf Urine WBC (0-5) /hpf Ur Squamous Epith Cells (0-4) /hpf Urine Bacteria (None) /hpf Urine Mucus (None) /hpf Urine HCG, Qual (Not Detectd) 09/26/19 Range/Units 20:50 WBC (3.8-10.6) k/uL RBC (3.80-5.40) m/uL Hgb (11.4-16.0) gm/dL Hct (34.0-46.0) % MCV (80.0-100.0) fL MCH (25.0-35.0) pg MCHC (31.0-37.0) g/dL RDW (11.5-15.5) % Plt Count (150-450) k/uL Neutrophils % % Lymphocytes % % Monocytes % % Eosinophils % % Basophils % % Neutrophils # (1.3-7.7) k/uL Lymphocytes # (1.0-4.8) k/uL Monocytes # (0-1.0) k/uL Eosinophils # (0-0.7) k/uL Basophils # (0-0.2) k/uL PT (9.0-12.0) sec INR (<1.2) APTT (22.0-30.0) sec D-Dimer 0.66 H (<0.60) mg/L FEU Sodium (137-145) mmol/L Potassium (3.5-5.1) mmol/L Chloride (98-107) mmol/L Carbon Dioxide (22-30) mmol/L Anion Gap mmol/L BUN (7-17) mg/dL Creatinine (0.52-1.04) mg/dL Est GFR (CKD-EPI)AfAm (>60 ml/min/1.73 sqM) Est GFR (CKD-EPI)NonAf (>60 ml/min/1.73 sqM) Glucose (74-99) mg/dL Calcium (8.4-10.2) mg/dL Total Bilirubin (0.2-1.3) mg/dL AST (14-36) U/L ALT (4-34) U/L Alkaline Phosphatase (38-126) U/L Troponin I (0.000-0.034) ng/mL Total Protein (6.3-8.2) g/dL Albumin (3.5-5.0) g/dL Urine Color Urine Appearance (Clear) Urine pH (5.0-8.0) Ur Specific [place] (1.001-1.035) Urine Protein (Negative) Urine Glucose (UA) (Negative) Urine Ketones (Negative) Urine Blood (Negative) Urine Nitrite (Negative) Urine Bilirubin (Negative) Urine Urobilinogen (<2.0) mg/dL Ur Leukocyte Esterase (Negative) Urine RBC (0-5) /hpf Urine WBC (0-5) /hpf Ur Squamous Epith Cells (0-4) /hpf Urine Bacteria (None) /hpf Urine Mucus (None) /hpf Urine HCG, Qual (Not Detectd) Disposition Clinical Impression: Syncope, Ankle pain, left Disposition: HOME SELF-CARE Condition: Good Instructions (If sedation given, give patient instructions): Ankle Sprain (ED), Syncope (ED) Additional Instructions: Please follow up with primary care in 1-2 days. Follow-up with orthopedic as well. Use splint and please see orthopedics. use crutches as needed. Return to the emergency department if you have any worsening symptoms or any recurrent episodes of syncope. Is patient prescribed a controlled substance at d/c from ED?: No Referrals: Jovanni Olson MD [Primary Care Provider] - 1-2 days Time of Disposition: 23:34
[2019-09-26 20:29] VITALS: RESP 18
[2019-09-26 21:08] LABS: Basophils # (A) 0.1 k/uL (0-0.2); Basophils % (A) 1 %; Eosinophils # (A) 0.2 k/uL (0-0.7); Eosinophils % (A) 2 %; HCT 41.2 % (34.0-46.0); HGB 13.9 gm/dL (11.4-16.0); Lymphocytes # (A) 2.1 k/uL (1.0-4.8); Lymphocytes % (A) 20 %; MCH 30.1 pg (25.0-35.0); MCHC 33.7 g/dL (31.0-37.0); MCV 89.4 fL (80.0-100.0); Mean Platelet Volume 7.4; Monocytes # (A) 0.8 k/uL (0-1.0); Monocytes % (A) 7 %; Neutrophils # (A) 7.2 k/uL (1.3-7.7); Neutrophils % (A) 69 %; Platelet Count 280 k/uL (150-450); RBC 4.61 m/uL (3.80-5.40); WBC 10.5 k/uL (3.8-10.6)
--- NOTE | 2019-09-26 21:17 | XR ---
EXAMINATION TYPE: XR chest 2V DATE OF EXAM: 09/26/2019 COMPARISON: July 07, 2019 HISTORY: Fall. Back pain TECHNIQUE: 2 views FINDINGS: Heart and mediastinum are normal. Lungs are clear. Diaphragm is normal. Bony thorax appears normal. IMPRESSION: Normal chest. There is clearing of the atelectasis left lateral lung base compared to old exam.
[2019-09-26] MEDS ORDERED: MORPHINE SULFATE 4 MG/ML SYRINGE IVP STA (21:19)
--- NOTE | 2019-09-26 21:20 | XR ---
EXAMINATION TYPE: XR ankle complete LT DATE OF EXAM: 09/26/2019 COMPARISON: None HISTORY: Pain TECHNIQUE: 3 views FINDINGS: There is some soft tissue swelling around the ankle joint. I see no fracture nor dislocatio n. There is plantar calcaneal spurring. IMPRESSION: Soft tissue swelling. No fracture.
--- NOTE | 2019-09-26 21:21 | XR ---
EXAMINATION TYPE: XR foot complete LT DATE OF EXAM: 09/26/2019 COMPARISON: NONE HISTORY: Pain TECHNIQUE: 3 views FINDINGS: Metatarsals are intact. I see no fracture nor dislocation. There is plantar calcaneal spurr ing. IMPRESSION: No acute abnormality of the left foot.
[2019-09-26 21:23] LABS: ALT 19 U/L (4-34); AST 27 U/L (14-36); African American GFR (CKD) >90 (>60 ml/min/1.73 sqM); Alkaline Phosphatase 97 U/L (38-126); Anion Gap 8 mmol/L; Blood Urea Nitrogen 11 mg/dL (7-17); Calcium 9.2 mg/dL (8.4-10.2); Carbon Dioxide 25 mmol/L (22-30); Chloride 108 mmol/L (98-107); Glucose 63 mg/dL (74-99); Non-African American GFR(CKD) >90 (>60 ml/min/1.73 sqM); Potassium 3.7 mmol/L (3.5-5.1); Sodium 141 mmol/L (137-145); Total Bilirubin 0.3 mg/dL (0.2-1.3); Total Protein 7.1 g/dL (6.3-8.2)
[2019-09-26 21:29] LABS: Appearance,Urine Clear (Clear); Bacteria,Urine Rare /hpf; Bilirubin,Urine Negative (Negative); Blood,Urine Trace (Negative); Color,Urine Yellow; Glucose,Urine (UA) Negative (Negative); Ketones,Urine Negative (Negative); Leukocyte Esterase,Urine Negative (Negative); Mucus,Urine Rare /hpf; Nitrite,Urine Negative (Negative); Protein,Urine Negative (Negative); RBC,Urine 1 /hpf (0-5); Specific Gravity,Urine 1.025 (1.001-1.035); Squamous Epithelial Cell,Urine 4 /hpf (0-4); Urobilinogen,Urine <2.0 mg/dL (<2.0); WBC,Urine 2 /hpf (0-5)
[2019-09-26 21:32] LABS: INR 0.9 (<1.2); Partial Thromboplastin Time 23.1 sec (22.0-30.0); Prothrombin Time 9.5 sec (9.0-12.0)
--- NOTE | 2019-09-26 21:38 | CT ---
EXAMINATION TYPE: CT brain abdullahi wo con DATE OF EXAM: 09/26/2019 COMPARISON: 07/07/2019 HISTORY: Syncope with head injury. CT DLP: 1502.3 mGycm Automated exposure control for dose reduction was used. Ventricles and sulci appear normal. There is no mass effect nor midline shift. There is no sign of in tracranial hemorrhage. Calvarium is intact. The skull base is intact. Cervical vertebra show mild straightening. Posterior elements are intact. Facet joints appear normal. There is no evidence of a fracture. IMPRESSION: Normal CT scan cervical spine. Normal CT scan of the brain. No adverse change.
[2019-09-26] MEDS ORDERED: KETOROLAC 30 MG/ML 1 ML VIAL IVP STA (22:15)
--- NOTE | 2019-09-26 22:57 | CT ---
EXAMINATION TYPE: CT chest angio for PE DATE OF EXAM: 09/26/2019 COMPARISON: None HISTORY: R/O PE CT DLP: 438.10 mGycm Automated exposure control for dose reduction was used. CONTRAST: Performed with IV Contrast, patient injected with 80 mL of Isovue 370. There are 3-D post processed images. Heart size is normal. There is no pericardial effusion. There are no hilar masses. There is no medias tinal adenopathy. There is normal contrast opacification of the thoracic aorta. There is no aneurysm or dissection. There is normal contrast opacification of the pulmonary arteries. There are no filling defects. The lungs are clear of infiltrate. There is no evidence of a pulmonary mass. There is minimal subsegm ental atelectasis in the posterior lung mcgill. The thoracic spine is intact. Sternum is intact. The ribs appear intact. IMPRESSION: No evidence of pulmonary embolism. Minimal subsegmental atelectasis.
[2019-09-26 23:08] VITALS: BP 116/64; TEMP 98
[2019-09-26] MEDS ORDERED: METOCLOPRAMIDE 5 MG/ML 2 ML VIAL IVP STA (23:39)
[2019-09-26] MEDS ORDERED: diphenhydrAMINE 50 MG/ML 1 ML VIAL IVP STA (23:39)
[2019-09-26 23:56] VITALS: PULSE 69
== END 2019-09-27 00:04 | disposition home or self-care (01) ==
LOC: EC 19:45
DX: M25.572 Pain in left ankle and joints of left foot (principal); R55 Syncope and collapse; J98.11 Atelectasis; F41.9 Anxiety disorder, unspecified; F32.9 Major depressive disorder, single episode, unspecified; F17.200 Nicotine dependence, unspecified, uncomplicated; Z79.899 Other long term (current) drug therapy
CPT/HCPCS: 36415; 93005; 85379; 80053; 84484; 85025; 85610; 85730; 81001; 81025; 73610; 73630; 71046; 72125; 70450; 71275; 99284; 29515; 96374; 96375 ×3; 96361; J2270; J1200; J2765; J1885; Q9967

== ENCOUNTER 2020-02-18 18:58 | Emergency (ER) | payer OTHER ==
[2020-02-18 19:20] VITALS: TEMP 98.4
[2020-02-18] MEDS ORDERED: SODIUM CHLORIDE 0.9% 1,000 ML IV STA (19:39)
[2020-02-18] MEDS ORDERED: HYDROmorphone 0.5 MG/0.5 ML SYRINGE IVP STA (19:39)
[2020-02-18] MEDS ORDERED: ONDANSETRON 4 MG/2 ML VIAL IVP STA (19:39)
--- NOTE | 2020-02-18 20:04 | ED ---
General Adult HPI - General Chief complaint: Abdominal Pain Stated complaint: hernia pain Time Seen by Provider: 02/18/20 19:22 Source: patient, RN notes reviewed Mode of arrival: ambulatory Limitations: no limitations - History of Present Illness Initial comments: 39-year-old female with a past medical history of asthma, migraines, kidney stones, ovarian cysts presents to the emergency room if her abdominal pain 2 months. Patient states this has been on and off. Patient states it started when she was moving. Patient states yesterday she sat up to adjust her pillows and felt a sudden pain in her right upper quadrant. States she saw a bulge in the back down. Patient states the bulge went away and the pain improved. States she is still having mild pain. States bowel movements are normal. Denies nausea vomiting. Patient is able to eat. Eating does not worsen the pain. She has not had fevers. She states she did see a GI physician in another city they did not do a workup.Patient has no other complaints at this time including shortness of breath, chest pain, nausea or vomiting, headache, or visual changes. - Related Data Home Medications Medication Instructions Recorded Confirmed Sertraline [Zoloft] 50 mg PO DAILY 06/01/19 06/23/19 buPROPion HCL [Wellbutrin SR] 150 mg PO DAILY 06/01/19 06/23/19 Previous Rx's Medication Instructions Recorded Dicyclomine [Bentyl] 20 mg PO QID #12 tablet 06/23/19 Ondansetron [Zofran ODT] 4 mg PO Q8HR PRN #20 tab 06/23/19 Metoclopramide [Reglan] 10 mg PO Q6H PRN #10 tab 07/07/19 Allergies Allergy/AdvReac Type Severity Reaction Status Date / Time No Known Allergies Allergy Verified 02/18/20 19:19 Review of Systems ROS Statement: Those systems with pertinent positive or pertinent negative responses have been documented in the HPI. ROS Other: All systems not noted in ROS Statement are negative. Past Medical History Past Medical History: Asthma Additional Past Medical History / Comment(s): MIGRAINES, kidney stones, ovarian cysts History of Any Multi-Drug Resistant Organisms: None Reported Past Surgical History: Appendectomy, Section, Tubal Ligation Additional Past Surgical History / Comment(s): cyst on left wrist removed Past Anesthesia/Blood Transfusion Reactions: No Reported Reaction Past Psychological History: Anxiety, Depression Smoking Status: Current every day smoker Past Alcohol Use History: None Reported Past Drug Use History: Marijuana - Past Family History Mother Family Medical History: Cancer Additional Family Medical History / Comment(s): breast Father Family Medical History: Congestive Heart Failure (CHF) Additional Family Medical History / Comment(s): strokes muliple pt unsure at what age, pacer General Exam Limitations: no limitations General appearance: alert, in no apparent distress Head exam: Present: atraumatic, normocephalic, normal inspection Eye exam: Present: normal appearance, PERRL, EOMI. Absent: scleral icterus, conjunctival injection, periorbital swelling ENT exam: Present: normal exam, mucous membranes moist Neck exam: Present: normal inspection, full ROM. Absent: tenderness, m eningismus Respiratory exam: Present: normal lung sounds bilaterally. Absent: respiratory distress, wheezes, rales, rhonchi, stridor Cardiovascular Exam: Present: regular rate, normal rhythm, normal heart sounds. Absent: systolic murmur, diastolic murmur, rubs, gallop, clicks GI/Abdominal exam: Present: soft, tenderness (Tenderness noted in the generalized upper abdomen, somewhat worse in the right upper quadrant. No lower abdominal tenderness.), normal bowel sounds. Absent: distended, guarding, rebound, rigid Back exam: Absent: CVA tenderness (R), CVA tenderness (L) Psychiatric exam: Present: normal affect Course Vital Signs 02/18/20 02/18/20 19:12 20:34 Temperature 98.4 F Pulse Rate 107 H 89 Respiratory 20 18 Rate Blood Pressure 117/86 127/93 O2 Sat by Pulse 97 98 Oximetry Medical Decision Making - Medical Decision Making Vitals are stable. Patient initially tachycardic which was likely secondary to pain. This improved to 80. She is afebrile. She does have some mild generalized upper abdominal pain without any lower abdominal tenderness. Patient states she truly thinks this is a hernia. Station and a bulge yesterday when she sat up and that it resolved and pain did improve. On physical exam at this time there is no evidence of hernia or bulge. CBC CMP unremarkable. Lactic acid 0.7. Urinalysis unremarkable. CT abdomen and pelvis with contrast that shows small bowel loops particularly in the left mid abdomen that demonstrates alternating areas of fluid-filled prominence of bowel wall thickening. Enteritis with ileus suspected typically inflammatory or infectious. I discussed these findings with patient. I also offered ultrasound of gallbladder however patient does not think this is her gallbladder as this has been going on for months and is not associated with eating. Discussed that she needs to follow-up with both surgery given clinical presentation as well as GI given CAT scan results. Patient is in agreement with this. I also discussed that she should return to the emergency Department if pain is worsening which she also agrees with. She does have a ride home. - Lab Data Result diagrams: 02/18/20 20:00 02/18/20 20:00 Lab Results 02/18/20 02/18/20 02/18/20 Range/Units 20:00 20:00 20:00 WBC 8.5 (3.8-10.6) k/uL RBC 5.15 (3.80-5.40) m/uL Hgb 15.0 (11.4-16.0) gm/dL Hct 44.9 (34.0-46.0) % MCV 87.3 (80.0-100.0) fL MCH 29.1 (25.0-35.0) pg MCHC 33.4 (31.0-37.0) g/dL RDW 13.7 (11.5-15.5) % Plt Count 259 (150-450) k/uL Neutrophils % 67 % Lymphocytes % 22 % Monocytes % 6 % Eosinophils % 2 % Basophils % 1 % Neutrophils # 5.7 (1.3-7.7) k/uL Lymphocytes # 1.9 (1.0-4.8) k/uL Monocytes # 0.5 (0-1.0) k/uL Eosinophils # 0.1 (0-0.7) k/uL Basophils # 0.1 (0-0.2) k/uL Sodium (137-145) mmol/L Potassium (3.5-5.1) mmol/L Chloride (98-107) mmol/L Carbon Dioxide (22-30) mmol/L Anion Gap mmol/L BUN (7-17) mg/dL Creatinine (0.52-1.04) mg/dL Est GFR (CKD-EPI)AfAm (>60 ml/min/1.73 sqM) Est GFR (CKD-EPI)NonAf (>60 ml/min/1.73 sqM) Glucose (74-99) mg/dL Plasma Lactic Acid Dominic (0.7-2.0) mmol/L Calcium (8.4-10.2) mg/dL Total Bilirubin (0.2-1.3) mg/dL AST (14-36) U/L ALT (4-34) U/L Alkaline Phosphatase (38-126) U/L Total Protein (6.3-8.2) g/dL Albumin (3.5-5.0) g/dL Amylase (30-110) U/L Lipase (23-300) U/L Urine Color Yellow Urine Appearance Cloudy H (Clear) Urine pH 5.5 (5.0-8.0) Ur Specific [place] 1.020 (1.001-1.035) Urine Protein Trace H (Negative) Urine Glucose (UA) Negative (Negative) Urine Ketones Negative (Negative) Urine Blood Negative (Negative) Urine Nitrite Negative (Negative) Urine Bilirubin Negative (Negative) Urine Urobilinogen <2.0 (<2.0) mg/dL Ur Leukocyte Esterase Moderate H (Negative) Urine RBC 4 (0-5) /hpf Urine WBC 7 H (0-5) /hpf Ur Squamous Epith Cells 6 H (0-4) /hpf Urine Bacteria Many H (None) /hpf Hyaline Casts 19 H (0-2) /lpf Urine Mucus Many H (None) /hpf Urine HCG, Qual Not Detected (Not Detectd) 02/18/20 02/18/20 Range/Units 20:00 20:34 WBC (3.8-10.6) k/uL RBC (3.80-5.40) m/uL Hgb (11.4-16.0) gm/dL Hct (34.0-46.0) % MCV (80.0-100.0) fL MCH (25.0-35.0) pg MCHC (31.0-37.0) g/dL RDW (11.5-15.5) % Plt Count (150-450) k/uL Neutrophils % % Lymphocytes % % Monocytes % % Eosinophils % % Basophils % % Neutrophils # (1.3-7.7) k/uL Lymphocytes # (1.0-4.8) k/uL Monocytes # (0-1.0) k/uL Eosinophils # (0-0.7) k/uL Basophils # (0-0.2) k/uL Sodium 136 L (137-145) mmol/L Potassium 4.2 (3.5-5.1) mmol/L Chloride 107 (98-107) mmol/L Carbon Dioxide 18 L (22-30) mmol/L Anion Gap 11 mmol/L BUN 8 (7-17) mg/dL Creatinine 0.59 (0.52-1.04) mg/dL Est GFR (CKD-EPI)AfAm >90 (>60 ml/min/1.73 sqM) Est GFR (CKD-EPI)NonAf >90 (>60 ml/min/1.73 sqM) Glucose 91 (74-99) mg/dL Plasma Lactic Acid Dominic 0.7 (0.7-2.0) mmol/L Calcium 9.3 (8.4-10.2) mg/dL Total Bilirubin 0.4 (0.2-1.3) mg/dL AST 26 (14-36) U/L ALT 16 (4-34) U/L Alkaline Phosphatase 98 (38-126) U/L Total Protein 7.8 (6.3-8.2) g/dL Albumin 4.6 (3.5-5.0) g/dL Amylase 53 (30-110) U/L Lipase 126 (23-300) U/L Urine Color Urine Appearance (Clear) Urine pH (5.0-8.0) Ur Specific [place] (1.001-1.035) Urine Protein (Negative) Urine Glucose (UA) (Negative) Urine Ketones (Negative) Urine Blood (Negative) Urine Nitrite (Negative) Urine Bilirubin (Negative) Urine Urobilinogen (<2.0) mg/dL Ur Leukocyte Esterase (Negative) Urine RBC (0-5) /hpf Urine WBC (0-5) /hpf Ur Squamous Epith Cells (0-4) /hpf Urine Bacteria (None) /hpf Hyaline Casts (0-2) /lpf Urine Mucus (None) /hpf Urine HCG, Qual (Not Detectd) Disposition Clinical Impression: Abdominal pain Disposition: HOME SELF-CARE Condition: Good Instructions (If sedation given, give patient instructions): Abdominal Pain (ED) Additional Instructions: Please follow up with GI and surgery. Please review CAT scan results with your primary care doctor or GI. If you have any worsening symptoms such as worsening pain or hernia comes out and will not go back in, then return immediately to the emergency room. Is patient prescribed a controlled substance at d/c from ED?: No Referrals: Valeria Smith MD [STAFF PHYSICIAN] - 1-2 days Bradley Barger MD [STAFF PHYSICIAN] - 1-2 days Time of Disposition: 21:46
[2020-02-18 20:13] LABS: Basophils # (A) 0.1 k/uL (0-0.2); Basophils % (A) 1 %; Eosinophils # (A) 0.1 k/uL (0-0.7); Eosinophils % (A) 2 %; HCT 44.9 % (34.0-46.0); Lymphocytes # (A) 1.9 k/uL (1.0-4.8); Lymphocytes % (A) 22 %; MCH 29.1 pg (25.0-35.0); MCHC 33.4 g/dL (31.0-37.0); MCV 87.3 fL (80.0-100.0); Mean Platelet Volume 7.6; Monocytes # (A) 0.5 k/uL (0-1.0); Monocytes % (A) 6 %; Neutrophils # (A) 5.7 k/uL (1.3-7.7); Neutrophils % (A) 67 %; Platelet Count 259 k/uL (150-450); RBC 5.15 m/uL (3.80-5.40); RDW 13.7 % (11.5-15.5); WBC 8.5 k/uL (3.8-10.6)
[2020-02-18 20:16] LABS: Appearance,Urine Cloudy (Clear); Bacteria,Urine Many /hpf; Bilirubin,Urine Negative (Negative); Blood,Urine Negative (Negative); Color,Urine Yellow; Glucose,Urine (UA) Negative (Negative); Hyaline Casts,Urine 19 /lpf (0-2); Ketones,Urine Negative (Negative); Leukocyte Esterase,Urine Moderate (Negative); Mucus,Urine Many /hpf; Nitrite,Urine Negative (Negative); PH, Urine 5.5 (5.0-8.0); Protein,Urine Trace (Negative); RBC,Urine 4 /hpf (0-5); Squamous Epithelial Cell,Urine 6 /hpf (0-4); Urobilinogen,Urine <2.0 mg/dL (<2.0); WBC,Urine 7 /hpf (0-5)
[2020-02-18 20:26] LABS: ALT 16 U/L (4-34); AST 26 U/L (14-36); African American GFR (CKD) >90 (>60 ml/min/1.73 sqM); Albumin 4.6 g/dL (3.5-5.0); Alkaline Phosphatase 98 U/L (38-126); Amylase 53 U/L (30-110); Anion Gap 11 mmol/L; Blood Urea Nitrogen 8 mg/dL (7-17); Calcium 9.3 mg/dL (8.4-10.2); Carbon Dioxide 18 mmol/L (22-30); Chloride 107 mmol/L (98-107); Glucose 91 mg/dL (74-99); Non-African American GFR(CKD) >90 (>60 ml/min/1.73 sqM); Potassium 4.2 mmol/L (3.5-5.1); Sodium 136 mmol/L (137-145); Total Bilirubin 0.4 mg/dL (0.2-1.3); Total Protein 7.8 g/dL (6.3-8.2)
[2020-02-18 20:35] VITALS: BP 127/93; PULSE 89; RESP 18
--- NOTE | 2020-02-18 21:07 | CT ---
EXAMINATION TYPE: CT abdomen pelvis w con DATE OF EXAM: 02/18/2020 HISTORY: right sided abdominal pain CT DLP: 1466.3mGycm Automated Exposure Control for Dose Reduction was Utilized. CONTRAST: CT scan of the abdomen and pelvis is performed with IV Contrast, patient injected with 100 mL of Isov ue 300. COMPARISON: 06/01/2019 FINDINGS: LUNG BASES: Stable 2 mm subpleural right middle lobe solid pulmonary nodule on image 2. Minimal right basilar subsegmental atelectasis. LIVER/GB: Values approach criteria for hepatic steatosis. Phrygian cap is incidentally noted of the g allbladder. PANCREAS: No significant abnormality is seen. SPLEEN: No splenomegaly. ADRENALS: No significant abnormality is seen. KIDNEYS: Kidneys enhance and excrete symmetrically without hydronephrosis. BOWEL: Small bowel loops d emonstrate alternating areas of fluid-filled prominent and bowel wall thickening. This is best apprec iated in the left mid abdomen. Appendix is not seen however no right lower quadrant fat stranding rocío nges are present. There are scattered colonic diverticula without pericolonic fat stranding. UTERUS/ADNEXA: Tubal ligation clips are both within the right adnexa. This is an unchanged finding fr om the prior 2019. LYMPH NODES: No greater than 1cm abdominal or pelvic lymph nodes are appreciated. OSSEOUS STRUCTURES: Minimal multilevel degenerative change of the spine. IMPRESSION: Small bowel loops particularly in the left mid abdomen that demonstrate alternating areas of fluid-filled prominence and bowel wall thickening. Enteritis with ileus suspected, typically of i nflammatory or infectious etiology.
[2020-02-18] MEDS ORDERED: ACET/COD 300 MG/30 MG STARTER PACK 6 TAB BTL PO STA (21:47)
== END 2020-02-18 22:09 | disposition home or self-care (01) ==
LOC: EC 18:58
DX: R10.11 Right upper quadrant pain (principal); F41.9 Anxiety disorder, unspecified; F32.9 Major depressive disorder, single episode, unspecified; F17.200 Nicotine dependence, unspecified, uncomplicated; Z79.899 Other long term (current) drug therapy; Z98.51 Tubal ligation status
CPT/HCPCS: 36415; 80053; 82150; 83605; 83690; 85025; 81001; 81025; 74177; 99284; 96374; 96375; 96361; J2405; J1170; Q9967

== ENCOUNTER 2020-04-17 20:26 | Emergency (ER) | payer OTHER ==
[2020-04-17 20:32] VITALS: RESP 20
[2020-04-17] MEDS ORDERED: LORazepam 1 MG TAB PO STA (21:37)
[2020-04-17] MEDS ORDERED: diazePAM 5 MG TAB PO STA (23:43)
--- NOTE | 2020-04-17 23:43 | ED ---
Psych HPI - General Chief Complaint: Psychiatric Symptoms Stated Complaint: Heart issues,Anxiety Time Seen by Provider: 04/17/20 20:35 Source: patient Mode of arrival: ambulatory - History of Present Illness Initial Comments: Patient is a 39-year-old female past history of anxiety presents emergency Department with reported increasing anxiety. Patient states that she lives with her father who requires much care. States that he is a significant burden on her which has caused her much stress. She states she feels trapped taking care of him. She does have history of anxiety and does take Zoloft however it has not been changed in approximately 2 years. She denies having a primary care physician or seeing a psychiatrist. Has never been hospitalized. She denies suicidal or homicidal ideations. No active hallucinations. She feels as if she is so stressed out that she is "going to from stress." She admits to date being and marijuana use. Denies use of any other drugs. Denies chest pain or shortness of breath. No concern for . No other alleviating, precipitating or modifying factors - Related Data Home Medications Medication Instructions Recorded Confirmed Sertraline [Zoloft] 50 mg PO DAILY 06/01/19 06/23/19 buPROPion HCL [Wellbutrin SR] 150 mg PO DAILY 06/01/19 06/23/19 Previous Rx's Medication Instructions Recorded Dicyclomine [Bentyl] 20 mg PO QID #12 tablet 06/23/19 Ondansetron [Zofran ODT] 4 mg PO Q8HR PRN #20 tab 06/23/19 Metoclopramide [Reglan] 10 mg PO Q6H PRN #10 tab 07/07/19 LORazepam [Ativan] 0.5 mg PO TID 3 Days #9 tab 04/17/20 Allergies Allergy/AdvReac Type Severity Reaction Status Date / Time No Known Allergies Allergy Verified 04/17/20 20:32 Review of Systems ROS Statement: Those systems with pertinent positive or pertinent negative responses have been documented in the HPI. ROS Other: All systems not noted in ROS Statement are negative. Past Medical History Past Medical History: Asthma Additional Past Medical History / Comment(s): MIGRAINES, kidney stones, ovarian cysts History of Any Multi-Drug Resistant Organisms: None Reported Past Surgical History: Appendectomy, Section, Tubal Ligation Additional Past Surgical History / Comment(s): cyst on left wrist removed Past Anesthesia/Blood Transfusion Reactions: No Reported Reaction Past Psychological History: Anxiety, Depression Past Alcohol Use History: None Reported Past Drug Use History: Marijuana - Past Family History Mother Family Medical History: Cancer Additional Family Medical History / Comment(s): breast Father Family Medical History: Congestive Heart Failure (CHF) Additional Family Medical History / Comment(s): strokes muliple pt unsure at what age, pacer General Exam Limitations: no limitations General appearance: alert, anxious Head exam: Present: atraumatic, normocephalic, normal inspection Eye exam: Present: normal appearance, PERRL, EOMI. Absent: scleral icterus, conjunctival injection, periorbital swelling ENT exam: Present: normal exam, mucous membranes moist Neck exam: Present: normal inspection. Absent: tenderness, meningismus, lymphadenopathy Respiratory exam: Present: normal lung sounds bilaterally. Absent: respiratory distress, wheezes, rales, rhonchi, stridor Cardiovascular Exam: Present: normal rhythm, tachycardia, normal heart sounds. Absent: systolic murmur, diastolic murmur, rubs, gallop, clicks GI/Abdominal exam: Present: soft, normal bowel sounds. Absent: distended, tenderness, guarding, rebound, rigid Extremities exam: Present: normal inspection, full ROM, normal capillary refill. Absent: tenderness, pedal edema, joint swelling, calf tenderness Back exam: Present: normal inspection Neurological exam: Present: alert, oriented X3, CN II-XII intact Psychiatric exam: Present: anxious Skin exam: Present: warm, dry, intact, normal color. 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 A thorough history and physical exam was performed. Patient is not suicidal, homicidal or hallucinating. She is evaluated by EPS. EPS find resources for the patient as she is from [facility]. We stressed that she call to obtain an appointment in regards to her symptoms. She was given a dose of Ativan in the emergency department. Patient reports to some improvement in her symptoms however they have occurred prior to discharge. Patient was then given a dose of Valium. I will write the patient a prescription for Ativan. She is informed that this is a controlled substance and it may cause sedation. She is to not work or drive with taking the medications. I informed the patient if she has any new or worsening symptoms or does feel suicidal or homicidal that she should return to the emergency room. Patient was then discharged home in stable condition - EKG Data EKG Comments: EKG demonstrates sinus tachycardia with a ventricular rate of 110. MA interval 130. QRS 82. QTC of 452. No acute ST segment elevation or depressions concerning for ischemic changes Disposition Clinical Impression: Acute anxiety Disposition: HOME SELF-CARE Condition: Stable Instructions (If sedation given, give patient instructions): Anxiety (ED) Additional Instructions: Please call the [email or web address] crisis hotline for further recommendations and treatment options. Return to the emergency room for any new or worsening symptoms Prescriptions: LORazepam [Ativan] 0.5 mg PO TID 3 Days #9 tab Is patient prescribed a controlled substance at d/c from ED?: No Referrals: None,Stated [Primary Care Provider] - 1-2 days Time of Disposition: 23:34
[2020-04-17 23:54] VITALS: BP 110/75; PULSE 82; TEMP 97.9
== END 2020-04-18 | disposition home or self-care (01) ==
LOC: EC 20:26
DX: F41.9 Anxiety disorder, unspecified (principal); F32.9 Major depressive disorder, single episode, unspecified; Z79.899 Other long term (current) drug therapy
CPT/HCPCS: 82075; 93005; 99284

== ENCOUNTER 2022-10-20 09:18 | Emergency (ER) | payer OTHER ==
[2022-10-20 09:28] VITALS: RESP 18; TEMP 98
[2022-10-20] MEDS ORDERED: HYDROcodone/APAP 5-325MG 1 EACH TAB PO STA (09:44)
[2022-10-20] MEDS ORDERED: IBUPROFEN 600 MG TAB PO STA (09:44)
--- NOTE | 2022-10-20 10:45 | ED ---
Back Pain HPI - General Chief Complaint: Back Pain/Injury Stated Complaint: Back Injury Time Seen by Provider: 10/20/22 09:33 Source: patient, RN notes reviewed Limitations: no limitations - History of Present Illness Initial Comments: 41-year-old female presents emergency Department with chief complaint of low back pain. Patient states that she's had multiple falls in the last month she states she can remember when the last one was she denies any head injuries no loss conscious. Patient states it's low but better when she stands worse with any other movement. She states that she's been going to the chiropractor which has not been helping she's had no relief she's been taking some herbal anti- inflammatory supplements. - Related Data Home Medications Medication Instructions Recorded Confirmed Sertraline [Zoloft] 50 mg PO DAILY 06/01/19 06/23/19 buPROPion HCL [Wellbutrin SR] 150 mg PO DAILY 06/01/19 06/23/19 Previous Rx's Medication Instructions Recorded Dicyclomine [Bentyl] 20 mg PO QID #12 tablet 06/23/19 Ondansetron [Zofran ODT] 4 mg PO Q8HR PRN #20 tab 06/23/19 Metoclopramide [Reglan] 10 mg PO Q6H PRN #10 tab 07/07/19 LORazepam [Ativan] 0.5 mg PO TID 3 Days #9 tab 04/17/20 Cyclobenzaprine [Flexeril] 10 mg PO TID PRN #15 tab 10/20/22 predniSONE 50 mg PO DAILY #5 tab 10/20/22 Allergies Allergy/AdvReac Type Severity Reaction Status Date / Time No Known Allergies Allergy Verified 10/20/22 09:27 Review of Systems ROS Statement: Those systems with pertinent positive or pertinent negative responses have been documented in the HPI. ROS Other: All systems not noted in ROS Statement are negative. Past Medical History Past Medical History: Asthma Additional Past Medical History / Comment(s): MIGRAINES, kidney stones, ovarian cysts History of Any Multi-Drug Resistant Organisms: None Reported Past Surgical History: Appendectomy, Section, Tubal Ligation Additional Past Surgical History / Comment(s): cyst on left wrist removed Past Anesthesia/Blood Transfusion Reactions: No Reported Reaction Past Psychological History: Anxiety, Depression Smoking Status: Never smoker Past Alcohol Use History: None Reported Past Drug Use History: Marijuana - Past Family History Mother Family Medical History: Cancer Additional Family Medical History / Comment(s): breast Father Family Medical History: Congestive Heart Failure (CHF) Additional Family Medical History / Comment(s): strokes muliple pt unsure at what age, pacer General Exam Limitations: no limitations General appearance: alert, in no apparent distress Head exam: Present: atraumatic, normocephalic, normal inspection Eye exam: Present: normal appearance, PERRL, EOMI. Absent: scleral icterus, conjunctival injection, periorbital swelling ENT exam: Present: normal exam, normal oropharynx, mucous membranes moist Neck exam: Present: normal inspection, full ROM. Absent: tenderness, meningismus, lymphadenopathy Respiratory exam: Present: normal lung sounds bilaterally. Absent: respiratory distress, wheezes, rales, rhonchi, stridor Cardiovascular Exam: Present: regular rate, normal rhythm, normal heart sounds. Absent: systolic murmur, diastolic murmur, rubs, gallop, clicks GI/Abdominal exam: Present: soft, normal bowel sounds. Absent: distended, tenderness, guarding, rebound, rigid Extremities exam: Present: normal inspection, full ROM Back exam: Present: tenderness, paraspinal tenderness, vertebral tenderness. Absent: full ROM Neurological exam: Present: reflexes normal. Absent: motor sensory deficit Course Vital Signs 10/20/22 09:25 Temperature 98 F Pulse Rate 120 H Respiratory 18 Rate Blood Pressure 129/97 O2 Sat by Pulse 100 Oximetry Medical Decision Making - Medical Decision Making Was pt. sent in by a medical professional or institution (, PA, TECHNICAL SUPERVISOR, urgent care, hospital, or assisted...) When possible be specific @ -No Did you speak to anyone other than the patient for history (EMS, parent, family, police, friend...)? What history was obtained from this source @ -No Did you review nursing and triage notes (agree or disagree)? Why? @ -I reviewed and agree with nursing and triage notes Were old charts reviewed (outside hosp., previous admission, EMS record, old EKG, old radiological studies, urgent care reports/EKG's, assisted records)? Report findings @ -No old charts were reviewed Differential Diagnosis (chest pain, altered mental status, abdominal pain women, abdominal pain men, vaginal bleeding, weakness, fever, dyspnea, syncope, headache, dizziness, GI bleed, back pain, seizure, CVA, palpatations, mental health)? @ -Lumbar fracture, lumbar radiculopathy, herniated disc bulging disks, degenerative disc disease, dizziness is not all inclusive EKG interpreted by me (3pts min.). @ -As above X-rays interpreted by me (1pt min.). @ -None done CT interpreted by me (1pt min.). @ -CT of the lumbar spine shows degenerative changes, mild disc bulging, no herniated disc noted, minimal spondylosis. U/S interpreted by me (1pt. min.). @ -None done What testing was considered but not performed or refused? (CT, X-rays, U/S, labs)? Why? @ -None What meds were considered but not given or refused? Why? @ -None Did you discuss the management of the patient with other professionals (professionals i.e. Dr., PA, TECHNICAL SUPERVISOR, lab, RT, psych nurse, social studies department chair, painting manager, teacher, penal officer, caser up)? Give summary @ -No Was smoking cessation discussed for >3mins.? @ -No Was critical care preformed (if so, how long)? @ -No Were there social determinants of health that impacted care today? How? (Homelessness, low income, unemployed, alcoholism, drug addiction, transportation, low edu. Level, literacy, decrease access to med. care, [facility] [facility], rehab)? @ -[No] Was there de-escalation of care discussed even if they declined (Discuss DNR or withdrawal of care, Hospice)? DNR status @ -[No] What co-morbidities impacted this encounter? (DM, HTN, Smoking, COPD, CAD, Cancer, CVA, ARF, Chemo, Hep., AIDS, mental health diagnosis, sleep apnea, morbid obesity)? @ -[None] Was patient admitted / discharged? Hospital course, mention meds given and route, prescriptions, significant lab abnormalities, going to OR and other pertinent info. @ -[Discharged patient had CT of the lumbar spine which revealed no acute fracture. Patient has small bulging disc and degenerative changes. She has no red flag symptoms. Patient is offered pain control, steroids. She will follow- up with orthopedics and return for any worsening change in symptoms.] Undiagnosed new problem with uncertain prognosis? @ -[No] Drug Therapy requiring intensive monitoring for toxicity (Heparin, Nitro, Insulin, Cardizem)? @ -[No] Were any procedures done? @ -[No] Diagnosis/symptom? @ -[Acute lumbar pain] Acute, or Chronic, or Acute on Chronic? @ -[Acute] Uncomplicated (without systemic symptoms) or Complicated (systemic symptoms)? @ -[Uncomplicated] Side effects of treatment? @ -[No] Exacerbation, Progression, or Severe Exacerbation? @ -[No] Poses a threat to life or bodily function? How? (Chest pain, [place], [place], pneumonia, PE, COPD, DKA, ARF, appy, cholecystitis, CVA, Diverticulitis, Homicidal, Suicidal, threat to staff... and all critical care pts) @ -[No] Disposition Clinical Impression: Lumbar back pain Disposition: HOME SELF-CARE Condition: Stable Instructions (If sedation given, give patient instructions): Acute Low Back Pain (ED) Additional Instructions: Please return to the Emergency department for any worsening or changing of symptoms or any other concerns Prescriptions: Cyclobenzaprine [Flexeril] 10 mg PO TID PRN #15 tab PRN Reason: Muscle Spasm predniSONE 50 mg PO DAILY #5 tab Is patient prescribed a controlled substance at d/c from ED?: No Referrals: None,Stated [Primary Care Provider] - 1-2 days Anh Og DO [Doctor of Osteopathic Medicine] - 1-2 days Time of Disposition: 11:13
--- NOTE | 2022-10-20 10:56 | CT ---
EXAMINATION TYPE: CT lumbar spine wo con DATE OF EXAM: 10/20/2022 10:31 AM COMPARISON: None HISTORY: Low back pain, injury x1 week ago. CT DLP: 836.8 mGycm Automated exposure control for dose reduction was used. Technique: Multiple axial images are obtained through the lumbar spine without use of IV contrast mat erial. Coronal and sagittal reconstructions were generated and reviewed. FINDINGS: The lumbar vertebral segments are normal in height and alignment and there is no fracture or subluxat ion. There is mild degenerative disc disease at the L3-4 level where there is mild anterior spondylos is and mild disc space narrowing. There is mild degenerative disease at the L4-5 level with mild circ umferential disc bulge and minimal narrowing of the disc space. Secondary to mild disc bulge and thickening of ligamentum flavum, there is mild spinal stenosis at th e L4-5 level. There is no lumbar disc herniation. The facet joints are intact. IMPRESSION: 1. No evidence of acute injury. 2. Degenerative disc disease at the L3-4 and L4-5 levels described above. 3. No lumbar disc herniation. 4. Mild spinal stenosis at the L4-5 level.
[2022-10-20] MEDS ORDERED: ACET/COD 300 MG/30 MG STARTER PACK 6 TAB BTL PO STA (11:14)
[2022-10-20] MEDS ORDERED: predniSONE 20 MG TAB PO STA (11:17)
[2022-10-20] MEDS ORDERED: CYCLOBENZAPRINE 10MG STARTER 3 TAB BTL PO STA (11:18)
[2022-10-20 11:46] VITALS: BP 101/73; PULSE 79
== END 2022-10-20 11:46 | disposition home or self-care (01) ==
LOC: EC 09:18
DX: M54.50 Low back pain, unspecified (principal); M48.061 Spinal stenosis, lumbar region without neurogenic claudication; M51.36 Other intervertebral disc degeneration, lumbar region; J45.909 Unspecified asthma, uncomplicated; F41.9 Anxiety disorder, unspecified; F32.A Depression, unspecified; F12.90 Cannabis use, unspecified, uncomplicated
CPT/HCPCS: 99284; 72131; J7512